=== PATIENT | male | born 1940 | race Caucasian/White ===

== ENCOUNTER → 2023-08-06 09:56 | Outpatient (REF) | payer MEDICARE, BC, SELFPAY ==
[2023-08-06 11:08] LABS: Blood Urea Nitrogen 23 mg/dl (9-20); Calcium 9.3 mg/dl (8.4-10.2); Carbon Dioxide 28 mmol/L (22-30); Chloride 100 mmol/L (98-107); Glucose 141 mg/dl (70-99); Potassium 4.9 mmol/L (3.5-5.1); Sodium 134 mmol/L (135-145); eGFR > 60.00
== END ==
LOC: REG 09:56
PROVIDERS: ATTENDING PHYSICIAN Specialist; FAMILY PHYSICIAN Family Medicine
DX: C67.0 Malignant neoplasm of trigone of bladder (principal)
CPT/HCPCS: 36415; 80048

== ENCOUNTER → 2023-08-12 13:07 | Outpatient (REF) | payer MEDICARE, BC, SELFPAY | LOC: HWRAD 13:07 | PROVIDERS: ATTENDING PHYSICIAN Specialist; FAMILY PHYSICIAN Family Medicine | DX: C61 Malignant neoplasm of prostate (principal); C67.0 Malignant neoplasm of trigone of bladder | CPT/HCPCS: 74178; Q9967 ==

== ENCOUNTER 2023-08-20 06:32 | Day surgery (SDC) | payer MEDICARE, BC, SELFPAY ==
[2023-08-15 11:08] VITALS: BMI 36.2
[2023-08-20] VITALS (13 sets, daily range): BP systolic 116–178; BP diastolic 54–94; BMI 36.2
[2023-08-20 10:24] LABS: Glucose - Point of Care 128 mg/dl (70-99)
[2023-08-20] MEDS: NORMOSOL-R 1000 IV (10:25)
[2023-08-20] MEDS: CYSVIEW KIT 100 MG INTRAVES (10:50)
[2023-08-20 12:23] LABS: Glucose - Point of Care 112 mg/dl (70-99)
[2023-08-20 14:55] LABS: Glucose - Point of Care 95 mg/dl (70-99)
[2023-08-20] MEDS: SYRINGE NON-PUMP 50 ML IRRIG ×2 (14:56)
[2023-08-20] MEDS: SYRINGE NON-PUMP 50 MG IRRIG ×2 (14:56)
== END 2023-08-20 17:47 | disposition home or self-care (01) ==
LOC: SDS 06:32
PROVIDERS: ATTENDING PHYSICIAN Specialist; FAMILY PHYSICIAN Family Medicine
DX: C67.9 Malignant neoplasm of bladder, unspecified (principal)
CPT/HCPCS: 52234; C9738; 88307; 82962; A9589; J9201

== ENCOUNTER → 2023-09-02 09:50 | Outpatient (REF) | payer MEDICARE, BC, SELFPAY | LOC: RAD 09:50 | PROVIDERS: ATTENDING PHYSICIAN Family Medicine | DX: I10 Essential (primary) hypertension (principal); R55 Syncope and collapse | CPT/HCPCS: 93880 ==

== ENCOUNTER → 2023-09-06 15:50 | Outpatient (REF) | payer MEDICARE, BC, SELFPAY | LOC: HWRCS 15:50 | PROVIDERS: ATTENDING PHYSICIAN Family Medicine | DX: R55 Syncope and collapse (principal); I10 Essential (primary) hypertension | CPT/HCPCS: 93306 ==

== ENCOUNTER → 2023-09-10 10:11 | Outpatient (REF) | payer MEDICARE, BC, SELFPAY ==
[2023-09-10 11:13] LABS: ALT (SGPT) 26 U/L (0-50); AST (SGOT) 27 U/L (17-59); Albumin 4.4 g/dl (3.5-5.0); Alkaline Phosphatase 51 U/L (38-126); Blood Urea Nitrogen 28 mg/dl (9-20); Carbon Dioxide 29 mmol/L (22-30); Chloride 97 mmol/L (98-107); Glucose 135 mg/dl (70-99); HDL Cholesterol 43 mg/dl; Potassium 4.2 mmol/L (3.5-5.1); Sodium 136 mmol/L (135-145); Total Bilirubin 0.7 mg/dl (0.2-1.3); Total Cholesterol 225 mg/dl (50-199); Total Protein 6.8 g/dl (6.3-8.2); eGFR > 60.00
[2023-09-10 11:21] LABS: Triglyceride 424 mg/dl (10-149)
[2023-09-10 11:43] LABS: LDL Cholesterol, Direct 90 mg/dl
[2023-09-10 13:20] LABS: Glycohemoglobin (HgbA1c) 6.6 % (4.0-5.6)
== END ==
LOC: REG 10:11
PROVIDERS: ATTENDING PHYSICIAN Family Medicine
DX: E11.40 Type 2 diabetes mellitus with diabetic neuropathy, unspecified (principal); E78.2 Mixed hyperlipidemia
CPT/HCPCS: 36415; 80053; 80061; 83036; 83721

== ENCOUNTER → 2023-10-24 16:55 | Outpatient (REF) | payer MEDICARE, BC, SELFPAY ==
[2023-10-24 17:54] LABS: % Basophils 0.3 % (0-2); % Eosinophils 0.1 % (0-6); % Immature Granulocytes 0.6 % (0-0.5); % Lymphocytes 5.6 % (20.5-51.1); % Monocytes 6.7 % (1.7-9.3); % Neutrophils 86.7 % (42.2-75.2); Absolute Immature Granulocytes 0.1 10^3/uL (0-0.05); Absolute Lymphocytes 0.6 10^3/uL (1.2-3.4); Absolute Monocytes 0.8 10^3/uL (0.1-0.6); Absolute Neutrophils 9.7 10^3/uL (1.4-6.5); Hemoglobin 11.3 g/dL (13.0-18.0); Mean Corp Hgb Conc. 34.2 g/dL (33.0-37.0); Mean Corpuscular Hgb 30.5 pg (27.0-31.0); Mean Corpuscular Volume 89.2 fL (80.0-94.0); Nucleated Red Blood Cells % 0 % (-); Platelet Count 174 10^3/uL (130-400); Red Cell Dist. Width 13.9 % (11.5-14.5); White Blood Cell Count 11.2 10^3/uL (4.8-10.8)
[2023-10-24 17:59] LABS: Erythrocyte Sed Rate 69 mm/hour (0-20)
[2023-10-24 18:11] LABS: ALT (SGPT) 26 U/L (0-50); AST (SGOT) 34 U/L (17-59); Albumin 4.5 g/dl (3.5-5.0); Alkaline Phosphatase 55 U/L (38-126); Blood Urea Nitrogen 34 mg/dl (9-20); Calcium 9.8 mg/dl (8.4-10.2); Carbon Dioxide 27 mmol/L (22-30); Chloride 93 mmol/L (98-107); Glucose 152 mg/dl (70-99); Potassium 3.8 mmol/L (3.5-5.1); Sodium 132 mmol/L (135-145); Total Bilirubin 1.4 mg/dl (0.2-1.3); Total Protein 7.2 g/dl (6.3-8.2); eGFR 59.63
[2023-10-24 18:40] LABS: PSA, Total - Diagnostic 0.19 ng/ml (0.0-4.0)
[2023-10-28 16:55] LABS: Lyme Antibody Screen, EIA Negative (Negative)
== END ==
LOC: RAD 16:55
PROVIDERS: ATTENDING PHYSICIAN Family Medicine
DX: M54.2 Cervicalgia (principal); R63.0 Anorexia; C61 Malignant neoplasm of prostate
CPT/HCPCS: 36415; 72052; 80053; 84153; 85025; 85652; 86140; 86618

== ENCOUNTER 2023-10-25 10:44 | Emergency (ER) | payer MEDICARE, BC, SELFPAY ==
[2023-10-25 10:52] VITALS: BP 152/82
[2023-10-25 11:32] VITALS: BP 152/80
--- NOTE | 2023-10-25 12:17 | ED.GENMED ---
History of Present Illness
General
Chief Complaint: Generalized Pain
Source: patient
Exam Limitations: none
Time Seen by Provider: 10/25/23 11:35
Nursing documentation reviewed up to this point in time: agreed with
Travel History
Have you had any contact with someone who has COVID-19?: No
Do you have any symptoms of coronavirus? Fever > 100 degrees, chills, cough, shortness of breath, sore throat, loss of taste or smell, muscle aches, or headache?: No
History of Present Illness
History of Present Illness:
83-year-old male with right shoulder pain neck pain. Due to symptoms ongoing for about 10 days. He was seen by Dr. Mcgraw yesterday, and had lab work done. Lab work showed elevated CRP, white blood cell count 11.2 and elevated ESR.
Past History
Past History
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
chronic anemia, obstructive sleep apnea)
ED Past Surgical History: Cholecystectomy, Orthopedic, Tonsilectomy and Other (Hernia repair)
Social History
Tobacco: Former smoker
Alcohol: Occasional
Personal:
Living: with family
Family History
Family History: CAD and Other (Family history of hypertriglyceridemia and coronary artery disease); Negative Diabetes, Hypertension, Asthma or Cancer
Review of Systems
Review of Systems
Allergies reviewed?: Yes
All Other Systems: Not applicable
Constitutional: Reports no symptoms
EENT: Reports no symptoms
Respiratory: Reports no symptoms; Denies trouble breathing
Cardiac: Reports no symptoms; Denies chest pain
ABD/GI: Reports no symptoms
: Reports no symptoms
Musculoskeletal: Reports muscle pain and neck pain
Skin: Reports no symptoms
Neurological: Reports no symptoms
Endocrine: Reports no symptoms
Hematologic/Lymphatic: Reports no symptoms
Psychiatric: Reports no symptoms
Phy Exam
Physical Exam
Physical Exam:
Physical Exam
General: no apparent distress, not acutely ill
Neck: supple. no meningeal signs. normal posterior pharynx, lipoma right lower posterior neck
Heart: s1/s2 regular rate and rhythm, no murmur. equal radial
pulses.
HEENT: Pupils equal round reactive to light, EOMI
Lungs: no acute respiratory distress. clear bilaterally
Abdomen: normal bowel sounds. not tender. no CVAT
Neuro: alert and oriented. no focal neurological deficits cranial nerves II through XII intact
Skin: no rash
Psychiatric: well kept. interactive and cooperative
Extremities: no edema. no calf tenderness. negative homans. good distal pulses, mild tender to palpation at right shoulder
Course
Orders/Labs/Results
Orders:
Orders
10/25/23 12:13
CT Chest/abd/pelvis Angio W/wo Urgent
Comment:
Reason For Exam: neck upper back pain abd pain
IV Insert/Care/Rem.- Treatment PRN
Vital Signs
Initial and Last Documented VS:
Initial Vital Signs
Temp Pulse Resp BP Pulse Ox
97.6 F 89 20 152/82 97
10/25/23 10:52 10/25/23 10:52 10/25/23 10:52 10/25/23 10:52 10/25/23 10:52
Last Documented Vital Signs
Temp Pulse Resp BP Pulse Ox
97.6 F 78 18 151/78 95
10/25/23 10:52 10/25/23 14:30 10/25/23 14:30 10/25/23 14:23 10/25/23 14:30
MDM/Problems Addressed
Differential Diagnosis Includes:
Aortic dissection, pneumonia
MDM/Problems Addressed:
83-year-old male with shoulder pain and myalgias. Unclear if viral versus arthritic cause.
Chronic conditions affecting care: HTN
Acute Exacerbation and/or Progression of Chronic Illness: HTN
*Radiology
Radiology exam reviewed: radiology read reviewed (CT angiography no acute findings, neck x-ray shows chronic degenerative changes)
*Pulse Oximetry
Patient hypoxic: no
*EKG
Interpreted by ED Provider?: NA
*Brim Presser Interpretation
Rate: Brim Presser- N/A
*Critical Care Note
Total Time (30-74mins, 75-104mins- exclusive of procedures): Not Applicable
Data Reviewed
Review of Other/Old Records Reveals: Labs
Source: records
Patient Management
Social determinants of health affecting care: Living situation
Escalation/DeEscalation of care consider admission/obs:
Admit not indicated
ED Attending Note
-
Portions of this chart may have been created with voice recognition software.� Occasional wrong word or��sound alike� substitutions may have occurred due to the inherent limitations of voice recognition software.
Discharge Plan
Departure
Patient Disposition: Home (Routine Discharge)
Date of Disposition: 10/25/23
Time of Disposition: 14:40
Patient with high blood pressure during this ER visit?: Yes
Condition: Good
Discharge Problem:
Myalgia, Prostate cancer metastatic to bone
Instructions: Muscle and Bone Pain (DC), BLOOD PRESSURE
Prescriptions:
New
tramadol 50 mg tablet
50 mg PO Q6H PRN (Reason: Pain) Qty: 14 0RF
No Action
gemfibrozil 600 MG tablet
600 mg PO BID@0730,1630
latanoprost (PF) 7.5 ML drops
1 drp BOTH EYES HS
metformin 500 MG tablet
500 mg PO BID
ascorbic acid (vitamin C) [Vitamin C] 500 MG tablet
500 mg PO BID
tamsulosin 0.4 MG capsule
0.4 mg PO BID
pantoprazole 40 MG tablet,delayed release (DR/EC)
40 mg PO DAILY
simvastatin 20 MG tablet
20 mg PO HS
cholecalciferol (vitamin D3) 5,000 UNIT tablet,disintegrating
5,000 unit PO BID
aspirin 81 MG tablet,delayed release (DR/EC)
81 mg PO BID
Coq10 300 MG Capsule
300 mg PO QPM
polyethylene glycol 3350 17 GRAMS powder in packet
17 grams PO PRN PRN (Reason: Constipation)
Metamucil Fiber Singles 1 PACKET powder in packet
1 packet PO PRN PRN (Reason: constipation)
losartan-hydrochlorothiazide 100-25 mg Tablet
1 tab PO DAILY
omega 4-wbu-vzp-fish oil [Fish Oil] 1,200 (144-216) mg Capsule
1 cap PO HS
dorzolamide-timolol 22.3-6.8 mg/mL Drops
1 drp OPHTHALMIC (EYE) BID
Referrals:
Shawn Ballard MD [Active] - Call in 1-3 days for appt
Berny Momin DO [Consulting Staff] - Call in 1-3 days for appt
Marvin Mcgraw MD [Family Provider] - Call in 1-3 days for appt
Interventions
Interventions:
*Risk Screen - Suicide Last Done: 10/25/23 11:34
*General Assessment Last Done: 10/25/23 11:34
*Neglect/Abuse Screening Last Done: 10/25/23 11:34
ED- Fall Risk Assessment Last Done: 10/25/23 11:34
*ED COVID-19 Vaccine History Last Done: 10/25/23 10:52
Discharge Date and Time
Print Language: SWEDISH
[2023-10-25 13:24] VITALS: BP 140/77
[2023-10-25 14:23] VITALS: BP 151/78
== END 2023-10-25 15:39 | disposition home or self-care (01) ==
LOC: EMR 10:44
PROVIDERS: EMERGENCY PHYSICIAN Emergency Medicine; FAMILY PHYSICIAN Family Medicine
DX: C61 Malignant neoplasm of prostate (principal); C79.51 Secondary malignant neoplasm of bone; M79.10 Myalgia, unspecified site; M54.2 Cervicalgia; M54.6 Pain in thoracic spine; R10.9 Unspecified abdominal pain; M25.511 Pain in right shoulder; R70.0 Elevated erythrocyte sedimentation rate; R79.82 Elevated C-reactive protein (CRP); K21.9 Gastro-esophageal reflux disease without esophagitis; I10 Essential (primary) hypertension; E78.00 Pure hypercholesterolemia, unspecified; E11.40 Type 2 diabetes mellitus with diabetic neuropathy, unspecified; G47.33 Obstructive sleep apnea (adult) (pediatric); D64.9 Anemia, unspecified; K22.70 Barrett's esophagus without dysplasia; H40.9 Unspecified glaucoma; K57.30 Diverticulosis of large intestine without perforation or abscess without bleeding; Z90.49 Acquired absence of other specified parts of digestive tract; Z85.51 Personal history of malignant neoplasm of bladder; Z85.828 Personal history of other malignant neoplasm of skin; Z87.442 Personal history of urinary calculi; Z87.891 Personal history of nicotine dependence; Z79.82 Long term (current) use of aspirin; Z79.84 Long term (current) use of oral hypoglycemic drugs; Z88.8 Allergy status to other drugs, medicaments and biological substances; Z91.048 Other nonmedicinal substance allergy status
CPT/HCPCS: 99285; 71275; 74174; Q9967

== ENCOUNTER 2023-10-28 15:38 | Inpatient (IN) | payer MEDICARE, BC, SELFPAY ==
[2023-10-28] VITALS (10 sets, daily range): BP systolic 79–166; BP diastolic 67–98; BMI 36.2
--- NOTE | 2023-10-28 12:14 | ED.GENMED ---
History of Present Illness
General
Chief Complaint: Weakness
Time Seen by Provider: 10/28/23 11:45
Travel History
Have you had any contact with someone who has COVID-19?: No
Do you have any symptoms of coronavirus? Fever > 100 degrees, chills, cough, shortness of breath, sore throat, loss of taste or smell, muscle aches, or headache?: No
History of Present Illness
History of Present Illness:
83-year-old male with history of metastatic prostate cancer, qwi-iwomnyj-ybsbawbkj diabetes, hypertension, and hyperlipidemia presents to the emergency department for evaluation of generalized weakness and increasing fatigue. Was seen here 3 days
ago and evaluated for right upper extremity pain, at that time had a CT angiogram of the chest abdomen pelvis to evaluate for aortic dissection that was negative, had cervical spine x-rays that were negative. He was noted to have a markedly
elevated CRP of 189 of unclear significance. He reports poor appetite and fluid intake over the weekend. Denies any falls to provoke the right shoulder pain. No known fevers or chills.
Past History
Past History
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
chronic anemia, obstructive sleep apnea)
ED Past Surgical History: Cholecystectomy, Orthopedic, Tonsilectomy and Other (Hernia repair)
Social History
Tobacco: Former smoker
Alcohol: Occasional
Personal:
Living: with family
Family History
Family History: CAD and Other (Family history of hypertriglyceridemia and coronary artery disease); Negative Diabetes, Hypertension, Asthma or Cancer
Review of Systems
Review of Systems
Allergies reviewed?: Yes
All Other Systems: ROS reviewed and negative except as documented in HPI and ROS
Phy Exam
Physical Exam
Physical Exam:
GEN: Well appearing, NAD, WDWN
Eyes: PERRLA, EOMs intact, no scleral icterus
HENT: NCAT, oral mucosa moist, no JVD, no cervical adenopathy.
Lungs: CTAB, no wheezes, rales, rhonchi, normal chest wall excursion
Cardiac: RRR, no M/R/G, no peripheral edema. Radial pulses 2+ bilat
Abdomen: S, NT, ND, NABS, no masses or hepatosplenomegaly
Neuro: Somnolent but arouses easily, oriented fully. Right upper extremity is notably weak however the patient reports this is due to severe right shoulder and trapezius area pain
MSK: No gross deformity or ecchymosis. No edema. No digital clubbing
Skin: No rashes, petechiae. Normal color, no pallor or jaundice.
Psych: Calm, cooperative, proper hygiene
Course
Orders/Labs/Results
Orders:
Orders
10/28/23 12:09
0.9% Sodium Chloride 1000 ml [Nss] 1,000 ml IV BOLUS
10/28/23 12:14
Complete Blood Count/With Diff Urgent
Comprehensive Metabolic Panel Urgent
Serum Osmolality Urgent
Comment: ADD ON
10/28/23 12:17
Electrocardiogram (*1) Urgent
Reason for Study: QTc Monitoring
EKG- Treatment ONCE
10/28/23 13:05
Osmolality, Random Urine Urgent
Date Specimen was Collected: 10/28/23
Time Specimen was Collected: 13:03
Comment: ADD
Urinalysis Reflex To Culture Urgent
Date Specimen was Collected: 10/28/23
Time Specimen was Collected: 13:03
Urine Microscopic Reflex Cult Urgent
Urine Sodium Urgent
Date Specimen was Collected: 10/28/23
Time Specimen was Collected: 13:03
Comment: ADD ON
10/28/23 13:40
Add On- LAB Urgent
Tests Added?: serum osmolality, urine sodium
10/28/23 14:07
Blood Culture Q30M
SHEY Source: Blood/Venous
Specimen Description:
10/28/23 14:11
IRAD CONSULT Urgent
Consulting Provider: Berny Schumacher
Was physician already notified: Yes
Reason for Consult/Procedure: R shoulder arthrocentesis
Acknowledgement that appropriate orders are entered: Yes
Body Fluid Cell Count Urgent
What is the Body Fluid: joint
Date Specimen was Collected: 10/28/23
Time Specimen was Collected: 16:10
Comment: with DIFF, right shoulder, only able to aspirate few drops of fluid
10/28/23 14:18
Blood Culture Q30M
SHEY Source: Blood/Venous
Specimen Description:
10/28/23 14:26
0.9% Sodium Chloride 1000 ml [Nss] 1,000 ml IV BOLUS
10/28/23 15:01
Add On- LAB Stat
Tests Added?: urine osmolality
10/28/23 15:06
Admit/Transfer Patient As Directed
Co-Sign Provider:
Level of Care: Inpatient admission
Assign to:: Medical/Surgical
Physician / Group: marybel kc
Diagnosis: shoulder pain
Reason for Hospitalization: shoulder pain
Expected length of stay greater than two midnights?: Yes
ELOS- Estimated Length of Stay in days: 3
I certify the patient meets the requirements for IP care: Yes
10/28/23 15:07
Code Status As Directed
Resuscitation Status: Full Code
10/28/23 16:10
Fluid Culture with Gram Stain Urgent
SHEY Source: Joint Fluid
Specimen Description:
Date Specimen was Collected: 10/28/23
Time Specimen was Collected: 16:10
Comment: Right shoulder
10/28/23 17:10
Acetaminophen [Tylenol] 650 mg PO Q4HPRN PRN
Bisacodyl [Dulcolax] 10 mg RECTAL [id number] PRN
Dextrose 50%-Water [Dextrose 50% Syringe] 12.5 grams IV [id number] PRN
Docusate W/Senna [Senokot-S] 1 tablet PO BIDPRN PRN
Glucagon [GlucaGen] 1 mg IM PRN PRN
HYDROmorphone [Dilaudid] 0.5 mg IV Q4HPRN PRN
Insulin Aspart High Resistance [Novolog Flexpen-High Resistance] See Protocol SC AC
Polyethylene Glycol Powder [Miralax] 17 grams PO DAILYPRN PRN
Polyethylene Glycol Powder [Miralax] 17 grams PO DAILYPRN PRN
10/28/23 17:10
ORTHOPEDIC CONSULT Routine
Consulting Provider: Dewayne Gallo
Was physician already notified: Yes
Activity As Directed
Activity Level: As Tolerated
Bedside Glucose Monitoring As Directed
Frequency: AC&HS
Additional Instructions:: Change to q6h if pt on TPN, tube feeding or not eating
Vital Signs As Directed
Frequency: Per unit guidelines
DX Deep Vein Thrombosis Video Routine
10/28/23 18:00
Amlodipine [Norvasc] 5 mg PO QPM
Atorvastatin [Lipitor] 10 mg PO QPM
Enoxaparin Sodium [Lovenox] 40 mg SC QPM
Metformin Extended Release [Glucophage Xr Extended Release] 500 mg PO BID AT 0800,1700
10/28/23 20:00
Aspirin Low Dose EC [Aspir Low (Enteric Coated)] 81 mg PO BID
Gemfibrozil [Lopid] 600 mg PO BID
Tamsulosin [Flomax] 0.4 mg PO BID
Timolol Maleate/Dorzolam HCl [Cosopt Eye Drops] See Dose Instructions BOTH EYES BID
10/28/23 22:00
Latanoprost [Xalatan Ophthalmic Solution] See Dose Instructions BOTH EYES HS
10/29/23 Breakfast
2200 calorie (18 carb) Diabetic
At Your Request: Full Participation
Basic Metabolic Panel IN AM
Complete Blood Count/No Diff IN AM
Glycohemoglobin (HgbA1c) IN AM
Occupational Therapy Consult [Ot Eval And Treat] IN AM
Physical Therapy Consult [Pt Eval And Treat] IN AM
Activity Level: As Tolerated
10/29/23 08:00
Losartan/Hydrochlorothiazide [Hyzaar 100-25 Tablet] 1 tab PO DAILY
Pantoprazole [Protonix] 40 mg PO DAILY
10/30/23 06:00
Basic Metabolic Panel IN AM
Complete Blood Count/No Diff IN AM
10/31/23 06:00
Basic Metabolic Panel IN AM
Complete Blood Count/No Diff IN AM
11/01/23 06:00
Basic Metabolic Panel IN AM
Complete Blood Count/No Diff IN AM
11/02/23 06:00
Basic Metabolic Panel IN AM
Complete Blood Count/No Diff IN AM
Abnormal Lab Results
10/28/23 10/28/23
12:14 13:05
WBC 15.9 H 10^3/uL
(4.8-10.8)
RBC 3.37 L 10^6/uL
(4.70-6.10)
Hgb 10.1 L g/dL
(13.0-18.0)
Hct 29.7 L %
(39.0-52.0)
MPV 11.2 H fL
(7.4-10.4)
Abs Immat Gran (auto) 0.5 H 10^3/uL
(0-0.05)
Absolute Neuts (auto) 13.5 H 10^3/uL
(1.4-6.5)
Absolute Lymphs (auto) 0.9 L 10^3/uL
(1.2-3.4)
Absolute Monos (auto) 0.9 H 10^3/uL
(0.1-0.6)
Immature Gran % 2.9 H %
(0-0.5)
Neutrophils % 85.2 H %
(42.2-75.2)
Lymphocytes % 5.9 L %
(20.5-51.1)
Sodium 128 L mmol/L
(135-145)
Chloride 87 L mmol/L
(98-107)
BUN 42 H mg/dl
(9-20)
Glucose 245 H mg/dl
(70-99)
Ur Occult Blood Reflex Trace A
(Negative)
Urine RBC 3-6 A /HPF
(0-2)
Urine Albumin (Reflex) 1+ A
(Neg - Trace)
10/28/23 12:14
10/28/23 12:14
Vital Signs
Initial and Last Documented VS:
Initial Vital Signs
Temp Pulse Resp BP Pulse Ox
98.1 F 80 18 154/83 95
10/28/23 11:39 10/28/23 11:39 10/28/23 11:39 10/28/23 11:39 10/28/23 11:39
Last Documented Vital Signs
Temp Pulse Resp BP Pulse Ox
99.0 F 84 22 166/98 94
10/28/23 17:15 10/28/23 17:15 10/28/23 17:15 10/28/23 17:15 10/28/23 17:15
MDM/Problems Addressed
MDM/Problems Addressed:
Overall is unclear what exactly is driving the patient's symptoms. Certainly weakness and fatigue may be on the basis of hyponatremia and dehydration however there is no clearly explainable cause of the patient's right shoulder pain. There is
significant right shoulder swelling on exam and pain with passive range of motion concerning for potential septic arthritis, particular in the setting of recent markedly elevated CRP. I did perform a limited bedside ultrasound and saw no clearly
discernible fluid in order to perform aspiration, interventional radiology was then consulted for aspiration. Ultimately occult infectious etiology is considered given the increase in leukocytosis over the past several days coupled with the
patient's worsening functional status. Will admit to the hospitalist service for further evaluation and management
*Critical Care Note
Total Time (30-74mins, 75-104mins- exclusive of procedures): Not Applicable
ED Attending Note
-
Portions of this chart may have been created with voice recognition software.� Occasional wrong word or��sound alike� substitutions may have occurred due to the inherent limitations of voice recognition software.
Discharge Plan
Departure
Patient Disposition: Admit
Date of Disposition: 10/28/23
Time of Disposition: 14:26
Admit to: Med/Surg
Presentation/result/management discussed w/ accepting MD/DO: Hospitalist
Discharge Problem:
Generalized weakness, Acute hyponatremia, Acute pain of right shoulder, r/o septic arthritis right shoulder
Interventions
Interventions:
*Risk Screen - Suicide Last Done: 10/28/23 11:42
*General Assessment Last Done: 10/28/23 11:42
*Neglect/Abuse Screening Last Done: 10/28/23 11:42
ED- Fall Risk Assessment Last Done: 10/28/23 12:08
*ED COVID-19 Vaccine History Last Done: 10/28/23 11:45
*Nursing Disposition Last Done: 10/28/23 17:03
ED- Cardiac Assessment Last Done: 10/28/23 12:04
ED- Neurological Assessment Last Done: 10/28/23 12:05
ED- Pulmonary Assessment Last Done: 10/28/23 12:06
Discharge Date and Time
Discharge Date/Time: 10/28/23 17:06
[2023-10-28] MEDS: NSS 1000 IV (12:18)
[2023-10-28 12:28] LABS: % Basophils 0.2 % (0-2); % Eosinophils 0.1 % (0-6); % Immature Granulocytes 2.9 % (0-0.5); % Lymphocytes 5.9 % (20.5-51.1); % Monocytes 5.7 % (1.7-9.3); % Neutrophils 85.2 % (42.2-75.2); Absolute Immature Granulocytes 0.5 10^3/uL (0-0.05); Absolute Lymphocytes 0.9 10^3/uL (1.2-3.4); Absolute Monocytes 0.9 10^3/uL (0.1-0.6); Absolute Neutrophils 13.5 10^3/uL (1.4-6.5); Hematocrit 29.7 % (39.0-52.0); Hemoglobin 10.1 g/dL (13.0-18.0); Mean Corpuscular Volume 88.1 fL (80.0-94.0); Mean Platelet Volume 11.2 fL (7.4-10.4); Nucleated Red Blood Cells % 0 % (-); Platelet Count 248 10^3/uL (130-400); Red Blood Cell Count 3.37 10^6/uL (4.70-6.10); Red Cell Dist. Width 13.7 % (11.5-14.5); White Blood Cell Count 15.9 10^3/uL (4.8-10.8)
[2023-10-28 12:53] LABS: ALT (SGPT) 44 U/L (0-50); AST (SGOT) 40 U/L (17-59); Albumin 3.8 g/dl (3.5-5.0); Alkaline Phosphatase 62 U/L (38-126); Blood Urea Nitrogen 42 mg/dl (9-20); Calcium 9.5 mg/dl (8.4-10.2); Carbon Dioxide 29 mmol/L (22-30); Chloride 87 mmol/L (98-107); Estimated Creatinine Clearance 67 ml/min; Glucose 245 mg/dl (70-99); Potassium 3.8 mmol/L (3.5-5.1); Sodium 128 mmol/L (135-145); Total Bilirubin 1.1 mg/dl (0.2-1.3); Total Protein 6.5 g/dl (6.3-8.2); eGFR > 60.00
[2023-10-28 13:10] LABS: Urine Albumin 1+ (Neg - Trace); Urine Bilirubin Negative (Negative); Urine Character Clear (Clear); Urine Color Yellow; Urine Glucose Negative (Negative); Urine Ketone Negative (Negative); Urine Leukocyte Negative (Negative); Urine Nitrite Negative (Negative); Urine Occult Blood Trace (Negative); Urine Urobilinogen Negative (Neg - 1+)
[2023-10-28 13:27] LABS: Urine White Cell 0-2 /HPF (0-5)
--- NOTE | 2023-10-28 14:32 | HPS.HSE ---
Family Physician
-
Family Physician: Marvin Mcgraw
Chief Complaint
-
right shoulder pain
History of Present Illness
83-year-old male with history of metastatic prostate cancer, qiu-thbnsqw-yjotqdzqg diabetes, hypertension, and hyperlipidemia presented to us with right neck and shoulder pain since last Saturday. patient was evaluated by ER on Saturday and was sent
home on Tramadol and prednisone. patient stated worsening pain, not able to move.denied fever, chills, chest pain, sob. denied RIVERA, dizzy or syncopal episode. denied abdominal pain, n,v, d. denied dysuria or hematuria.
noted elevated CRP and wbc. admitting for further management.
Medical History
Past Medical History
Past Medical History: Reports Other
Additional Past Medical History:
GERD
prostate ca
HTn
CLEMENCIA
type 2 Dm
HLD
bladder ca
Caldera's esophagus
BPH
PAD
Past Surgical History: Reports Other
Additional Past Surgical History:
vitrectomy
bilateral hernia repairs
foot surgery
retinal surgery
cholecystectomy
tonsillectomy
Mohs surery
Social History
Tobacco: Non-smoker
Alcohol: None
Drug: None
Personal:
Living: With Family
Family History
Family History: Not pertinent
Allergies / Home Medications
Allergies reflects when Allergies were last updated in [employer]
Home Medications with original date entered in [employer].
Allergy/Medication List:
Allergies
Allergy/AdvReac Type Severity Reaction Status Date / Time
medication that stimulates Allergy patient Uncoded 10/28/23 11:39
bone iván doesn't
know name
seasonal Allergy sneezing, Uncoded 10/28/23 11:39
runny eyes
Home Medications
ascorbic acid (vitamin C) 500 mg tablet (Vitamin C) 500 mg PO BID Supplement 04/17/19
gemfibrozil 600 mg tablet 600 mg PO BID High Cholesterol 04/17/19
pantoprazole 40 mg tablet,delayed release 40 mg PO DAILY Gastrointestinal Issue 04/17/19
simvastatin 20 mg tablet 20 mg PO QPM High Cholesterol 04/17/19
tamsulosin 0.4 mg capsule 0.4 mg PO BID Urinary Issue 04/17/19
aspirin 81 mg tablet,delayed release 81 mg PO BID Blood Clot Prevention/Tx 02/17/20
polyethylene glycol 3350 17 gram oral powder packet 17 grams PO DAILYPRN PRN Constipation 02/18/20
losartan 100 mg-hydrochlorothiazide 25 mg tablet 1 tab PO DAILY Blood Pressure 06/05/22
omega 7-qde-rob-fish oil 1,200 mg (144 mg-216 mg) capsule (Fish Oil) 1 cap PO HS Supplement 06/05/22
acetaminophen 325 mg tablet (Tylenol) 325 - 650 mg PO QIDPRN PRN mild pain 10/28/23
amlodipine 5 mg tablet 5 mg PO QPM Blood Pressure 10/28/23
cholecalciferol (vitamin D3) 125 mcg (5,000 unit) tablet 125 mcg PO BID Supplement 10/28/23
coenzyme Q10 100 mg capsule (CoQ-10) 100 mg PO QPM Supplement 10/28/23
dorzolamide 22.3 mg-timolol 6.8 mg/mL eye drops 1 drp BOTH EYES BID Eye Condition 10/28/23
latanoprost 0.005 % eye drops 1 drp BOTH EYES HS Eye Condition 10/28/23
metformin 500 mg tablet,extended release 24 hr 500 mg PO BID Diabetes 10/28/23
prednisone 20 mg tablet 20 mg PO DAILY inflammation 10/28/23
tramadol 50 mg tablet 50 mg PO Q6H PRN severe pain 10/28/23
Review of Systems
-
Constitutional: Reports No Symptoms
EENT: Reports No Symptoms
Respiratory: Reports No Symptoms
Cardiac: Reports No Symptoms
Abdomen/GI: Reports No Symptoms
: Reports No Symptoms
Musculoskeletal: Reports Other (right shoulder,neck pain)
Skin: Reports No Symptoms
Neurological: Reports No Symptoms
Endocrine: Reports No Symptoms
Hematologic/Lymphatic: Reports No Symptoms
Psych: Reports No Symptoms
Physical Exam
Vital Signs
Vital Signs
Temp Pulse Resp BP Pulse Ox
98.1 F 86 20 139/82 93
10/28/23 11:39 10/28/23 14:15 10/28/23 14:15 10/28/23 14:00 10/28/23 14:15
Physical Exam
General: Well Developed, Well Nourished and No Apparent Distress
HEENT: NormoCephalic, Moist mucous membranes and Atraumatic
Respiratory: Clear
Cardiac: S1/S2 and Regular Rhythm; No Murmur or Rub
GI: Soft, Non Tender, Non Distended and Normal Bowel Sounds; No Organomegaly
Rectal: Deferred by Provider
Musculoskeletal: No Clubbing, No Cyanosis and No Edema
Skin: No Rash
Neuro: AO x 3 and Nonfocal/grossly intact
Psych: Calm
Laboratory Results
-
10/28/23 12:14
10/28/23 12:14
Laboratory Results
Total Bilirubin 1.1 mg/dl (0.2-1.3) 10/28/23 12:14
AST 40 U/L (17-59) 10/28/23 12:14
ALT 44 U/L (0-50) 10/28/23 12:14
Alkaline Phosphatase 62 U/L (38-126) 10/28/23 12:14
Data Reviewed
-
CT Scan: Report Reviewed by me
Lab Data: Labs Reviewed by me
Impression/Plan
-
#right shoulder pain unclear cause septic arthritis vs frozen shoulder
-wbc 15.9 (on steroids)
-CRP 189.30,ESR 69
-ortho and IR consulted
-chest abdomen pelvis CTA is No evidence of thoracic aortic aneurysm/dissection and no evidence of abdominal aortic aneurysm/dissection.Prior cholecystectomy. No biliary tract dilatation.Sclerotic densities again seen in the left seventh rib, right
iliac bone and right sacrum correlating with known bony metastasis.Hepatomegaly.Urinary bladder significantly obscured, as detailed above.Colonic diverticulosis.
-cervical spine X ray No acute fracture or malalignment. Multilevel overall moderate degenerative changes as above.
-Dilaudid prn for pain
-hold prednisone
-pt/ot consult
#anemia of chronic disease
-hgb 10.1
-no active bleeding
-ctm
#acute hyponatremia likely dehydration
-na 128, corrected sodium 131
-received normal saline x2l in ER
-continue to monitor BMP
# Essential hypertension
-Blood pressure stable in the ER
-Norvasc continued
-Losartan/HCTZ continued
# Hyperlipidemia
-Gemfibrozil continued
-Simvastatin continued
# Type 2 diabetes with hyperglycemia
-Sliding scale
-Carb controlled diet
-Continue to monitor
-Continue PPI
# GERD
-PPI continued
# BPH
-Flomax continued
# DVT prophylaxis
-Lovenox subcu
# CODE STATUS
-Full code
--- NOTE | 2023-10-28 14:44 | W.PN.UPDATE ---
Update Note
Progress Note Update
TI saw and examined the patient.
The CLASSIFICATION COUNSELOR or PA's note was reviewed and I agree with the note.
Comment: his serves as an addendum to the H&P dictated by Oliver Danielson.
Patient 83 years old male with history of metastatic prostate cancer, diabetes mellitus, hypertension, hyperlipidemia presented with generalized weakness and right shoulder pain. Patient denies any trauma to the right shoulder. Denies any fevers
or chills. He has some decreased oral intake. He has a white count of 15.9, sodium of 128, glucose of 245. He was referred to hospitalist for further evaluation.
Physical exam:
General: Acutely ill
HEENT: Normocephalic, Atraumatic and Moist Mucous Membranes
Respiratory: Clear to Auscultation; Negative Wheezes, Rales or Rhonchi
Cardiac: Regular Rhythm and S1/S2
GI: Soft, Nontender and Nondistended
Musculoskeletal: Right shoulder pain and decreased range of motion. No Clubbing, No Cyanosis and No Edema
Neuro: Awake, Alert and Oriented
Psych: Calm
A/P
Rule out septic arthritis right shoulder/hyponatremia/ambulatory dysfunction and generalized weakness--> hold off on antibiotics, IR consult for aspiration of right shoulder to rule out septic arthritis, Ortho eval, aggressive blood sugar control
and monitor sodium which will be affected by the same. Obtain basic hyponatremia workup. PT OT eval. Will give further commendations based on his clinical course.
[2023-10-28 15:49] LABS: Urine Sodium 82 mmol/L (30-90)
[2023-10-28 15:50] LABS: Osmolality Serum 285 mOsm/kg (275-300)
[2023-10-28 16:25] LABS: Osmolality Urine 531 mOsm/kg (300-900)
--- NOTE | 2023-10-28 17:30 | PTCARENOTE ---
Patient admitted in to room 416-1. AAOx2, drowsy and forgetful. Patient oriented to unit and call gould system. Patient agreeable with using call gould for assistance. Condom cath placed. Will closely monitor.
[2023-10-28 18:04] LABS: Glucose - Point of Care 217 mg/dl (70-99)
[2023-10-28] MEDS: NORVASC 5 MG PO (18:14)
[2023-10-28] MEDS: LOVENOX 40 MG SC (18:14)
[2023-10-28] MEDS: GLUCOPHAGE XR EXTENDED RELEASE 500 MG PO (18:14)
[2023-10-28] MEDS: LIPITOR 10 MG PO (18:14)
[2023-10-28] MEDS: NOVOLOG FLEXPEN-HIGH RESISTANCE 4 UNITS SC (18:22)
[2023-10-28] MEDS: FLOMAX 0.400000000000000022 MG PO (20:20)
[2023-10-28] MEDS: COSOPT EYE DROPS 1 DROP BOTH EYES (20:20)
[2023-10-28] MEDS: ASPIR LOW (ENTERIC COATED) 81 MG PO (20:20)
[2023-10-28] MEDS: LOPID 600 MG PO (20:20)
[2023-10-28 21:26] LABS: Glucose - Point of Care 236 mg/dl (70-99)
[2023-10-28] MEDS: XALATAN OPHTHALMIC SOLUTION 1 DROP BOTH EYES (21:37)
[2023-10-29 07:00] VITALS: BP 151/78
[2023-10-29 07:22] LABS: Hematocrit 32.6 % (39.0-52.0); Hemoglobin 11.3 g/dL (13.0-18.0); Mean Corp Hgb Conc. 34.7 g/dL (33.0-37.0); Mean Corpuscular Hgb 30.1 pg (27.0-31.0); Mean Corpuscular Volume 86.9 fL (80.0-94.0); Mean Platelet Volume 11.1 fL (7.4-10.4); Platelet Count 285 10^3/uL (130-400); Red Blood Cell Count 3.75 10^6/uL (4.70-6.10); Red Cell Dist. Width 13.5 % (11.5-14.5); White Blood Cell Count 16.2 10^3/uL (4.8-10.8)
--- NOTE | 2023-10-29 07:38 | W.PN.HOSP.TC ---
Today's Communication/Plan
-
Start IV antibiotics. Repeat blood cultures. Echocardiogram. ID consult. Insulin. IVF.
Assessment / Plan
Assessment / Plan
Physical exam:
General: Acutely ill.
HEENT: Normocephalic, Atraumatic and Moist Mucous Membranes
Respiratory: Clear to Auscultation; Negative Wheezes, Rales or Rhonchi
Cardiac: Regular Rhythm and S1/S2
GI: Soft, Nontender and Nondistended
Musculoskeletal: Right shoulder pain and decreased range of motion. No erythema or warmth. No Clubbing, No Cyanosis and No Edema
Neuro: Awake, Alert and Oriented
Psych: Calm
A/P:
Bacteremia:
Blood cultures with Staph aureus, likely MSSA
Start IV cefazolin
Repeat blood cultures
Plan for transthoracic echocardiogram
Follow-up joint aspiration cultures
ID consult
Right shoulder pain status post IR aspiration on 10/27, rule out septic arthritis:
Follow-up cultures
X-ray shoulder ordered
Orthopedic consulted
Hyponatremia:
Etiology multifactorial -HCTZ, Hyperglycemia, Dehydration, Hypokalemia and SIADH related
Gentle hydration with IV fluid normal saline
Discontinue HCTZ
Start oral fluid restriction
Tighter blood sugar control
Urine sodium 82, urine osmolality 531, serum osmolarity 285. Check tsh and cortisol in am.
With all measures above, I expect the sodium to stabilize and/or improve.
Leukocytosis:
Infectious and steroids related both
Continue to trend
Diabetes mellitus type 2:
Diabetic diet
Will continue to check blood sugars before meals and at bedtime
Will continue insulin sliding scale
Will continue oral hypoglycemics, metformin
Will add insulin 8 units before each meal for better blood sugar control
Will monitor blood sugar and adjust medications accordingly
Update hemoglobin A1c in a.m. is 7.5
Hypokalemia:
Replete and trend
Primary hypertension:
Continue home antihypertensives, losartan, Norvasc. Hold HCTZ due to hyponatremia.
Monitor blood pressure and adjust medications accordingly.
Hyperlipidemia:
Continue home statins, atorvastatin 10 mg p.o. nightly
Continue gemfibrozil 600 mg twice a day
BPH:
Continue Flomax 0.4 mg twice a day
Anemia:
Hemoglobin stable at 11.3
Continue to monitor trend
History metastatic prostate cancer/bladder cancer:
Continue outpatient follow-up.
DVT prophylaxis:
Lovenox SQ daily
CODE STATUS:
Full code
Total time spent on today's encounter was 52 minutes which included time spent in counseling the patient/family regarding diagnosis and treatment plan as listed above, goals of care, and symptom management. Case was discussed with nursing staff,
specialists, and care coordinators/case management. All labs and imaging personally reviewed by me. Remainder the time spent in detailed review of previous records, lab data, imaging, and other medical provider documentation.
Anticipated Discharge: > 48 hours
Subjective/Interval History
-
Date of Service: October 29, 2023
Patient with generalized weakness and still having right shoulder pain. Afebrile today.
Objective Data
-
Labs:
Laboratory Results
10/29/23
06:35
WBC 16.2 H
Hgb 11.3 L
Hct 32.6 L
Plt Count 285
Sodium Pending
Potassium Pending
Chloride Pending
Carbon Dioxide Pending
BUN Pending
Creatinine Pending
Glucose Pending
Calcium Pending
Vital Signs:
Vital Signs
Temp Pulse Resp BP Pulse Ox
99.6 F 98 20 133/69 91
10/28/23 23:05 10/28/23 23:05 10/28/23 23:05 10/28/23 23:05 10/28/23 23:05
I&O
10/28/23 10/29/23 10/30/23
06:59 06:59 06:59
Intake Total 480 / 480
Output Total 900 / 900
Balance -420 / -420
[2023-10-29 07:58] LABS: Glucose - Point of Care 243 mg/dl (70-99)
[2023-10-29 08:17] LABS: Blood Urea Nitrogen 31 mg/dl (9-20); Carbon Dioxide 26 mmol/L (22-30); Chloride 88 mmol/L (98-107); Estimated Creatinine Clearance 92 ml/min; Glucose 202 mg/dl (70-99); Potassium 3.2 mmol/L (3.5-5.1); Sodium 127 mmol/L (135-145); eGFR > 60.00
[2023-10-29] MEDS: NOVOLOG FLEXPEN-HIGH RESISTANCE 4 UNITS SC (08:25)
[2023-10-29] MEDS: COSOPT EYE DROPS 1 DROP BOTH EYES ×2 (08:28→20:20)
[2023-10-29] MEDS: HYZAAR 100-25 TABLET 1 TAB PO (08:28)
[2023-10-29] MEDS: PROTONIX 40 MG PO (08:28)
[2023-10-29] MEDS: ASPIR LOW (ENTERIC COATED) 81 MG PO ×2 (08:28→20:25)
[2023-10-29] MEDS: FLOMAX 0.400000000000000022 MG PO ×2 (08:28→20:25)
[2023-10-29] MEDS: LOPID 600 MG PO ×2 (08:28→20:25)
[2023-10-29] MEDS: GLUCOPHAGE XR EXTENDED RELEASE 500 MG PO ×2 (08:28→15:54)
--- NOTE | 2023-10-29 08:58 | CON.ORTHO ---
Consultation
-
Date/Time Consultation Requested: 10/28/23
Date/Time Consultation Performed: 10/29/23 @750am
Requesting Provider: Erum Boyd
Performing Provider: Jackie Nair PAC for Dewayne Gallo
Reason for Consultation: right shoulder pain
Consultation - Orthopedics
History
HPI: 83yo male admitted to [facility] with right neck and shoulder pain since last Saturday. He was evaluated by ER on Saturday and was sent home on Tramadol and prednisone. Patient reports he had worensing pain and decreased range of motion.
He had elevated CRP and WBC and was admitted for further management. This morning, he is resting comfortably in bed and reports significant improvement in his symptoms. He states that his pain is almost resolved and his range of motion is at his
baseline. He underwent right shoulder aspiration in IR yesterday. He denies any type of injury to the right shoulder. He is right hand dominant.
PAST MEDICAL HISTORY: Metastatic prostate cancer, type 2 diabetes, hypertension, hyperlipidemia, GERD, CLEMENCIA, bladder cancer, Caldera's esophagus, PAD
PAST SURGICAL HISTORY: vitrectomy, bilateral hernia repair, foot surgery, retinal surgery, cholecystectomy, tonsillectomy, Mohs procedure
SOCIAL HISTORY: denies tobacco, alcohol
FAMILY HISTORY: Non contributory
REVIEW OF SYSTEMS: 12 point review of systems obtained and negative except those mentioned in the HPI
Allergies / Home Medications
Allergy/AdvReac Type Severity Reaction Status Date / Time
medication that stimulates Allergy patient Uncoded 10/28/23 11:39
bone iván doesn't
know name
seasonal Allergy sneezing, Uncoded 10/28/23 11:39
runny eyes
�Medication �Instructions �Recorded
ascorbic acid (vitamin C) 500 mg 500 mg PO BID Supplement 04/17/19
tablet (Vitamin C)
gemfibrozil 600 mg tablet 600 mg PO BID High Cholesterol 04/17/19
pantoprazole 40 mg tablet,delayed 40 mg PO DAILY Gastrointestinal 04/17/19
release Issue
simvastatin 20 mg tablet 20 mg PO QPM High Cholesterol 04/17/19
tamsulosin 0.4 mg capsule 0.4 mg PO BID Urinary Issue 04/17/19
aspirin 81 mg tablet,delayed 81 mg PO BID Blood Clot 02/17/20
release Prevention/Tx
polyethylene glycol 3350 17 gram 17 grams PO DAILYPRN PRN 02/18/20
oral powder packet Constipation
losartan 100 1 tab PO DAILY Blood Pressure 06/05/22
mg-hydrochlorothiazide 25 mg tablet
omega 3-qbu-cqq-fish oil 1,200 mg 1 cap PO HS Supplement 06/05/22
(144 mg-216 mg) capsule (Fish Oil)
acetaminophen 325 mg tablet 325 - 650 mg PO QIDPRN PRN mild 10/28/23
(Tylenol) pain
amlodipine 5 mg tablet 5 mg PO QPM Blood Pressure 10/28/23
cholecalciferol (vitamin D3) 125 125 mcg PO BID Supplement 10/28/23
mcg (5,000 unit) tablet
coenzyme Q10 100 mg capsule 100 mg PO QPM Supplement 10/28/23
(CoQ-10)
dorzolamide 22.3 mg-timolol 6.8 1 drp BOTH EYES BID Eye Condition 10/28/23
mg/mL eye drops
latanoprost 0.005 % eye drops 1 drp BOTH EYES HS Eye Condition 10/28/23
metformin 500 mg tablet,extended 500 mg PO BID Diabetes 10/28/23
release 24 hr
prednisone 20 mg tablet 20 mg PO DAILY inflammation 10/28/23
tramadol 50 mg tablet 50 mg PO Q6H PRN severe pain 10/28/23
Vital Signs / Lab Results
Temp Pulse Resp BP Pulse Ox
99.6 F 98 20 133/69 91
10/28/23 23:05 10/28/23 23:05 10/28/23 23:05 10/28/23 23:05 10/28/23 23:05
10/29/23 06:35
10/29/23 06:35
PHYSICAL EXAM:
General: well developed well nourished male in no acute distress
HEENT: NCAT, sclera anicteric, normal hearing
Heart: No JVD
Lungs: Normal work of breathing on room air
MSK: Focused exam of right shoulder with skin intact. Band aid to area from IR procedure. No tenderness to palpation. ROM: forward flexion 120, internal to hip, external 45, patient reports this is baseline. NVI distally
Assessment / Plan
ASSESSMENT: 83yo male with right shoulder pain
PLAN:
-Patient underwent IR aspiration yesterday. Obtained less than 1 mL of blood-tinged gelatinous synovial fluid, not grossly purulent. Culture pending
-Ordered xray right shoulder. Will follow up
-Given improvement in symptoms, low suspicion of septic arthritis
-Continue with current pain management as needed
[2023-10-29 09:22] LABS: Glycohemoglobin (HgbA1c) 7.5 % (4.0-5.6)
[2023-10-29 09:29] VITALS: BP 110/69; BP 131/81; PULSE 98; O2SAT 93
[2023-10-29 09:35] VITALS: BP 118/61; BP 131/81; O2SAT 93
[2023-10-29] MEDS: NSS 1000 IV (10:05)
[2023-10-29] MEDS: KCL 40 MEQ PO ×2 (10:05→13:43)
[2023-10-29 11:58] LABS: Glucose - Point of Care 253 mg/dl (70-99)
[2023-10-29] MEDS: NOVOLOG FLEXPEN-HIGH RESISTANCE 7 UNITS SC (12:06)
[2023-10-29] MEDS: NOVOLOG FLEXPEN 8 UNITS SC ×2 (12:06→16:57)
[2023-10-29] MEDS: ANCEF 10 IV ×2 (12:07→20:25)
--- NOTE | 2023-10-29 13:59 | CM ---
Patient seen bedside, patient requesting call to . Initial assessment completed by , Kelsy. Patients reports patient resides in multi level home, two steps to enter. Patient uses a cane for ambulation, CPAP at night through [employer].
Per , patient has not had VN or SNF if past. PCP Marvin Mcgraw, pharmacy [facility] in [place]. confirms prescription coverage. CM discussed PT/OT recommendation of SNF, agreeable. CM will send referrals to local SNFs. CM will
continue to follow for discharge planning needs.
Plan; SNF pending accepting facility.
[2023-10-29 15:00] VITALS: BP 152/89
--- NOTE | 2023-10-29 15:15 | CON.ID ---
Consultation
-
Date/Time Consultation Requested: 10/29/2023 1102
Date/Time Consultation Performed: 10/29/2023 1500
Requesting Provider: Dr. Martinez
Performing Provider: Dr. Moseley
Reason for Consultation: Bacteremia
Chief Complaint / Past History
History of Present Illness
Logan Villanueva is an 83-year-old man being evaluated at the request of Dr. Carroll in regards to Staph aureus bacteremia. History is obtained from chart review, along with patient interview, although patient was found to be quite confused when
interviewed.
The patient initially presented to [facility] ER on 10/24 with complaints of right shoulder pain, along with neck pain, which reportedly have been going on for the prior 10 days. He recently had been in to see his PCP and routine labs
revealed an elevated CRP, along with an elevated white count. Workup in the ER was unrevealing and the patient was discharged to home.
He presents back on 10/27 secondary to ongoing generalized weakness. His white count was now found to be 15.9, and blood cultures were obtained in the ER, which are now positive for Staph aureus. Infectious Diseases is asked to comment upon further
antimicrobial management and workup.
At the present time the patient reports low back discomfort, although is not sure about weakness. He is currently confused and believes he is on a sailboat.
Past History
Additional Past Medical History:
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
GERD
Hx Caldera's esophagitis
HTN
Dyslipidemia
DM
Nephrolithiasis
Additional Past Surgical History:
Mohs surgery
Tonsillectomy
Cholecystectomy
Retinal surgery
Foot surgery
Bilateral hernia repair
Allergy History:
medication that stimulates bone iván Allergy (Uncoded 10/28/23 11:39)
patient doesn't know name
seasonal Allergy (Uncoded 10/28/23 11:39)
sneezing, runny eyes
Medications Reviewed: Yes
Current Antibiotics:
Cefazolin
Social History
Tobacco: Former Smoker
Alcohol: None
Drug: None
Personal:
Living: With Family
Employment: Retired
Review of Systems
Vital Signs
Temp Pulse Resp BP Pulse Ox
97.2 F 95 20 151/78 92
10/29/23 07:00 10/29/23 07:00 10/29/23 07:00 10/29/23 07:00 10/29/23 07:00
Physical Exam
Physical Exam
Constitutional: No Acute Distress, Comfortable, Chronically Ill and Non-toxic
Eyes: Pupils Equal, Pupils Round, No Conjunctival Hemorrhage and Sclera Anicteric
Oral: No Thrush and No Ulcers
Cardiovascular: S1/S2; Negative S3/S4 or Murmur
Pulmonary: Coarse and Non Labored; Negative Wheezes or Rhonchi
Gastrointestinal: Soft, Non Tender and Non Distended
Extremities: Negative Edema, Cyanosis, Erythema, Splinter Hemorrhage, Venous Insufficiency or Janeway Lesions
Musculoskeletal: Spinal Tenderness (Low thoracic / upper lumbar region); Negative Joint Swelling
Skin: Warm and Dry; Negative Rash or Jaundice
Neurological: Awake and Alert
Psychological: Calm and Confused
.
Lab / Diagnostic Study Results
10/29/23 06:35
10/29/23 06:35
Abs Immat Gran (auto) 0.5 10^3/uL (0-0.05) H 10/28/23 12:14
Absolute Neuts (auto) 13.5 10^3/uL (1.4-6.5) H 10/28/23 12:14
Absolute Lymphs (auto) 0.9 10^3/uL (1.2-3.4) L 10/28/23 12:14
Absolute Monos (auto) 0.9 10^3/uL (0.1-0.6) H 10/28/23 12:14
Absolute Basos (auto) 0.0 10^3/uL (0-0.2) 10/28/23 12:14
Immature Gran % 2.9 % (0-0.5) H 10/28/23 12:14
Neutrophils % 85.2 % (42.2-75.2) H 10/28/23 12:14
Lymphocytes % 5.9 % (20.5-51.1) L 10/28/23 12:14
Monocytes % 5.7 % (1.7-9.3) 10/28/23 12:14
Eosinophils % 0.1 % (0-6) 10/28/23 12:14
Basophils % 0.2 % (0-2) 10/28/23 12:14
Microbiology Results
Micro:
10/29/23 14:54 Blood Culture - Pending
Blood/Venous
10/29/23 14:15 Blood Culture - Pending
Blood/Venous
10/28/23 16:10 Body Fluid Culture - Preliminary
Joint Fluid No Growth After 18-24 Hours
Gram Stain - Final
10/28/23 14:07 Blood Culture - Preliminary
Blood/Venous Staphylococcus aureus
Gram Stain - Final
10/28/23 14:18 Blood Culture - Preliminary
Blood/Venous Positive culture in progress
Gram Stain - Final
Imaging:
10/25/2023 CT chest/abdomen/pelvis: No evidence of thoracic aortic aneurysm/dissection and no evidence of abdominal aortic aneurysm/dissection. Prior cholecystectomy. No biliary tract dilatation. Sclerotic densities again seen in the left seventh
rib, right iliac bone and right sacrum correlating with known bony metastasis. Hepatomegaly. Urinary bladder significantly obscured. Colonic diverticulosis. Please see full dictation for additional detail.
Assessment / Plan
Staph aureus bacteremia
Back discomfort/shoulder discomfort
Leukocytosis
Encephalopathy
Hyponatremia
Elevated ESR
Elevated CRP
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
GERD
Hx Caldera's esophagitis
HTN
Dyslipidemia
DM
Nephrolithiasis
Recommendations:
Continue with cefazolin.
Will add vancomycin empirically while final susceptibility data pending. Further antibiotic selection and de-escalation as data is returned.
Repeat blood cultures have been ordered; will follow.
Given shoulder pain, and low back pain, will order MRI to assess for epidural collection or discitis.
Monitor white count and temperature curve.
[2023-10-29] MEDS: LIPITOR 10 MG PO (15:54)
[2023-10-29] MEDS: NORVASC 5 MG PO (15:54)
[2023-10-29] MEDS: LOVENOX 40 MG SC (16:00)
--- NOTE | 2023-10-29 16:10 | PHA.VAN.IN ---
Assessment
- Assessment
Renal Function: Appears similar to baseline (SCR & BUN elevated on admission but both are trending down)
Concomitant Antimicrobials: cefazolin
AUC Dosing Plan
- Dosing Variables
Dosing Weight (kg): 121
Dosing CrCl (ml/min): 92
Vd coefficient (L/kg): 0.7
- Empiric Dosing
Initial / Loading Dose: 2000mg - administration pending
Maintenance Regimen: Vanc 1250mg Q12H starting 10/29 06
Estimated AUC (mcg*h/mL): 452
Estimated Peak (mcg*h/mL): 27.7
Estimated Trough (mcg/ml): 11.9
Estimated Half Life (H): 8.6
- Monitoring
No levels ordered at this time: patient may be slow to accumulate
Pharmacokinetics Vancomycin I
- -
Patient Age: 83
Patient Sex: Male
Vancomycin Day #: 1
Indication: Bacteremia
Requesting Provider: Dr. Moseley
Pertinent Antimicrobial Allergies:
no pertinent antibiotic allergies
Height / Weight:
Height 6 ft
Actual Weight 120.9 kg
Pertinent Past Medical History: BMI ~36
- Vital Signs / Lab Results
Temp Pulse Resp BP Pulse Ox
97.2 F 95 20 151/78 92
10/29/23 07:00 10/29/23 07:00 10/29/23 07:00 10/29/23 07:00 10/29/23 07:00
Lab Results - Hematology
10/28/23 10/29/23
12:14 06:35
WBC 15.9 H 16.2 H
Lab Results - Chemistry
10/28/23 10/29/23
12:14 06:35
BUN 42 H 31 H
Creatinine 1.1 0.8
Estimated Creat Clear 67 92
Albumin 3.8
Lab Results - Urine
10/28/23
13:05
Urine Nitrite (Reflex) Negative
Leukocyte Esterase Rfl Negative
Urine WBC (Reflex) 0-2
Microbiology Results
10/28/23 16:10 Body Fluid Culture - Preliminary
Joint Fluid No Growth After 18-24 Hours
Gram Stain - Final
10/28/23 14:07 Blood Culture - Preliminary
Blood/Venous Staphylococcus aureus
Gram Stain - Final
10/28/23 14:18 Blood Culture - Preliminary
Blood/Venous Positive culture in progress
Gram Stain - Final
[2023-10-29] MEDS: VANCOCIN 540 MG IV (16:32)
[2023-10-29 16:33] LABS: Glucose - Point of Care 197 mg/dl (70-99)
[2023-10-29] MEDS: NOVOLOG FLEXPEN-HIGH RESISTANCE 2 UNITS SC (16:58)
[2023-10-29 21:15] LABS: Glucose - Point of Care 213 mg/dl (70-99)
[2023-10-29] MEDS: XALATAN OPHTHALMIC SOLUTION 1 DROP BOTH EYES (21:41)
[2023-10-29 23:33] VITALS: BP 113/63
[2023-10-30] MEDS: NSS 1000 IV (01:06)
[2023-10-30] MEDS: ANCEF 10 IV ×3 (03:21→19:53)
[2023-10-30] MEDS: VANCOCIN 275 MG IV ×2 (05:32→17:38)
[2023-10-30 07:33] VITALS: BP 147/79
[2023-10-30 07:34] LABS: Hematocrit 31.2 % (39.0-52.0); Hemoglobin 10.6 g/dL (13.0-18.0); Mean Corpuscular Hgb 29.9 pg (27.0-31.0); Mean Corpuscular Volume 88.1 fL (80.0-94.0); Mean Platelet Volume 10.6 fL (7.4-10.4); Platelet Count 285 10^3/uL (130-400); Red Blood Cell Count 3.54 10^6/uL (4.70-6.10); Red Cell Dist. Width 13.6 % (11.5-14.5); White Blood Cell Count 18.4 10^3/uL (4.8-10.8)
[2023-10-30 07:39] LABS: Glucose - Point of Care 215 mg/dl (70-99)
[2023-10-30 07:45] LABS: Blood Urea Nitrogen 27 mg/dl (9-20); Calcium 8.6 mg/dl (8.4-10.2); Carbon Dioxide 29 mmol/L (22-30); Chloride 91 mmol/L (98-107); Estimated Creatinine Clearance 82 ml/min; Glucose 184 mg/dl (70-99); Sodium 128 mmol/L (135-145); eGFR > 60.00
[2023-10-30 07:55] LABS: Potassium 3.4 mmol/L (3.5-5.1)
[2023-10-30] MEDS: NOVOLOG FLEXPEN-HIGH RESISTANCE 4 UNITS SC ×3 (07:56→17:36)
[2023-10-30] MEDS: NOVOLOG FLEXPEN 8 UNITS SC ×3 (07:57→17:36)
[2023-10-30] MEDS: COSOPT EYE DROPS 1 DROP BOTH EYES ×2 (08:05→19:56)
[2023-10-30 08:06] LABS: TSH 0.44 uIU/ml (0.47-4.68)
[2023-10-30] MEDS: GLUCOPHAGE XR EXTENDED RELEASE 500 MG PO (08:06)
[2023-10-30] MEDS: PROTONIX 40 MG PO (08:06)
[2023-10-30] MEDS: ASPIR LOW (ENTERIC COATED) 81 MG PO ×2 (08:06→19:55)
[2023-10-30] MEDS: FLOMAX 0.400000000000000022 MG PO ×2 (08:06→19:55)
[2023-10-30] MEDS: COZAAR 100 MG PO (08:06)
[2023-10-30] MEDS: LOPID 600 MG PO ×2 (08:06→19:55)
--- NOTE | 2023-10-30 08:35 | PHA.VAN.FU ---
Vancomycin Assessment / Plan
- Assessment
Renal Function: Stable
WBC's are: Trending Up
In the past 24 hrs, patient has been: Afebrile
Concomitant Antimicrobials: cefazolin
- Dosing Plan
Continue: Vanc 1250mg Q12H
- Monitoring Plan
No level(s) ordered at this time: consider levels in next few days
- Follow Up
Pharmacy will continue to follow.
Vancomycin Follow UP
- -
Patient Age: 83
Patient Sex: Male
Vancomycin Day #: 2
Indication: Bacteremia
Requesting Provider: Dr. Moseley
Pertinent Antimicrobial Allergies:
no pertinent antibiotic allergies
Height / Weight:
Height 6 ft
Actual Weight 120.9 kg
Pertinent Past Medical History: BMI ~36
- Vital Signs / Lab Results
Temp Pulse Resp BP Pulse Ox
98.7 F 74 20 147/79 92
10/30/23 07:33 10/30/23 07:33 10/30/23 07:33 10/30/23 07:33 10/30/23 07:33
Lab Results - Hematology
10/28/23 10/29/23 10/30/23
12:14 06:35 06:15
WBC 15.9 H 16.2 H 18.4 H
Lab Results - Chemistry
10/28/23 10/29/23 10/30/23
12:14 06:35 06:15
BUN 42 H 31 H 27 H
Creatinine 1.1 0.8 0.9
Estimated Creat Clear 67 92 82
Albumin 3.8
Microbiology Results
10/28/23 16:10 Body Fluid Culture - Preliminary
Joint Fluid No Growth After 18-24 Hours
Gram Stain - Final
10/28/23 14:07 Blood Culture - Preliminary
Blood/Venous Staphylococcus aureus
Gram Stain - Final
10/28/23 14:18 Blood Culture - Preliminary
Blood/Venous Positive culture in progress
Gram Stain - Final
--- NOTE | 2023-10-30 08:49 | W.PN.UPDATE ---
Update Note
Progress Note Update
Mr. Villanueva is resting comfortably in bed this morning. He reports his shoulder pain has improved significantly over the last few days. He does endorse mild discomfort with ROM, but otherwise is feeling well.
Directed exam o the right shoulder reveals no significant erythema, ecchymosis, effusion nor lesions. No tenderness to palpation about the shoulder. ROM only slightly limited secondary to patient discomfort. NVID.
Cultures from shoulder joint fluid reveal no growth thus far.
Low suspicion for septic arthritis. Will continue to follow cultures. Currently on cefazolin and vanco for bacteremia. Continue with recommendation per ID and IM.
--Encouraged gentle ROM of shoulder to tolerance. Patient may benefit from PT/OT while admitted.
--Continue pain control per primary.
--Orthopedics will continue to follow along pending final cultures.
[2023-10-30] MEDS: KCL 40 MEQ PO (09:29)
--- NOTE | 2023-10-30 11:01 | W.PN.HOSP.TC ---
Today's Communication/Plan
-
Await MRI of the spine
Await TTE
IV antibiotics
ID recs
Assessment / Plan
Assessment / Plan
Physical exam:
General: Acutely ill.
HEENT: Normocephalic, Atraumatic and Moist Mucous Membranes
Respiratory: Clear to Auscultation; Negative Wheezes, Rales or Rhonchi
Cardiac: Regular Rhythm and S1/S2
GI: Soft, Nontender and Nondistended
Musculoskeletal: Right shoulder pain and decreased range of motion. No erythema or warmth. No Clubbing, No Cyanosis and No Edema
Neuro: Awake, Alert and Oriented
Psych: Calm
A/P:
Bacteremia:
Blood cultures with Staph aureus, likely MSSA
Start IV cefazolin
Repeat blood cultures
Plan for transthoracic echocardiogram
Follow-up joint aspiration cultures-preliminary fortunately negative so far
MRI of the cervical, thoracic and lumbar spine pending
TTE pending
ID consult
Right shoulder pain status post IR aspiration on 10/27, rule out septic arthritis:
Follow-up cultures
X-ray shoulder ordered
Orthopedic consulted
Hyponatremia:
Etiology multifactorial -HCTZ, Hyperglycemia, Dehydration, Hypokalemia and SIADH related
Tolerating diet observe off IV fluids
Discontinue HCTZ
Start oral fluid restriction
Tighter blood sugar control
Urine sodium 82, urine osmolality 531, serum osmolarity 285. Check tsh and cortisol in am.
Slowly improving
Leukocytosis:
Infectious and steroids related both
Continue to trend
Diabetes mellitus type 2:
Diabetic diet
Will continue to check blood sugars before meals and at bedtime
Will continue insulin sliding scale
Will continue oral hypoglycemics, metformin
Will add insulin 8 units before each meal for better blood sugar control
Will monitor blood sugar and adjust medications accordingly
Update hemoglobin A1c in a.m. is 7.5
Hypokalemia:
Replete and trend
Primary hypertension:
Continue home antihypertensives, losartan, Norvasc. Hold HCTZ due to hyponatremia.
Monitor blood pressure and adjust medications accordingly.
Hyperlipidemia:
Continue home statins, atorvastatin 10 mg p.o. nightly
Continue gemfibrozil 600 mg twice a day
BPH:
Continue Flomax 0.4 mg twice a day
Anemia:
Hemoglobin stable at 11.3
Continue to monitor trend
History metastatic prostate cancer/bladder cancer:
Continue outpatient follow-up.
DVT prophylaxis:
Lovenox SQ daily
CODE STATUS:
Full code
PT/OT�eventual SNF on discharge
Discussed with patient spouse at bedside in detail
Anticipated Discharge: > 48 hours
Subjective/Interval History
-
Date of Service: October 30, 2023
States of shoulder soreness
Tolerating diet
Objective Data
-
Labs:
Laboratory Results
10/30/23
06:15
WBC 18.4 H
Hgb 10.6 L
Hct 31.2 L
Plt Count 285
Sodium 128 L
Potassium 3.4 L
Chloride 91 L
Carbon Dioxide 29
BUN 27 H
Creatinine 0.9
Glucose 184 H
Calcium 8.6
Vital Signs:
Vital Signs
Temp Pulse Resp BP Pulse Ox
98.7 F 74 20 147/79 92
10/30/23 07:33 10/30/23 07:33 10/30/23 07:33 10/30/23 07:33 10/30/23 07:33
I&O
10/29/23 10/30/23 10/31/23
06:59 06:59 06:59
Intake Total 480 / 480 2380 / 2380
Output Total 900 / 900 2200 / 2200
Balance -420 / -420 180 / 180
Data Reviewed
-
Total Time Spent with Patient (in minutes): 56
[2023-10-30 11:09] LABS: Glucose - Point of Care 247 mg/dl (70-99)
--- NOTE | 2023-10-30 11:21 | W.PN.ID1 ---
Date of Service
Date of Service: October 30, 2023
Today's Communication
Continue abx.
Assessment / Plan
Staph aureus bacteremia
Back discomfort/shoulder discomfort
Leukocytosis
Encephalopathy
Hyponatremia
Elevated ESR
Elevated CRP
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
GERD
Hx Caldera's esophagitis
HTN
Dyslipidemia
DM
Nephrolithiasis
Recommendations:
Continue with cefazolin / vanco while final susceptibility data is pending.
Further antibiotic selection and de-escalation as culture data is returned.
Repeat blood cultures have been ordered; will follow.
Await MRI to assess for epidural collection or discitis.
Monitor white count and temperature curve.
Chief Complaint
-: Bacteremia
Subjective / Review of Systems
Review of Systems: No Fever and No Chills
Vital Signs / Physical Exam
Vital Signs
Vital Signs
Temp Pulse Resp BP Pulse Ox
98.7 F 74 20 147/79 92
10/30/23 07:33 10/30/23 07:33 10/30/23 07:33 10/30/23 07:33 10/30/23 07:33
Physical Exam
Constitutional: Comfortable, Chronically Ill and Non-toxic
Eyes: No Conjunctival Hemorrhage and Sclera Anicteric
Cardiovascular: S1/S2; Negative S3/S4 or Murmur
Pulmonary: Non Labored
Gastrointestinal: Soft and Non Tender
Extremities: Negative Erythema, Splinter Hemorrhage or Janeway Lesions
Neurological: Awake and Alert
Psychological: Calm
Objective Data
Lab Data
Lab Results
10/30/23 06:15
10/30/23 06:15
Estimated Creat Clear 82 ml/min 10/30/23 06:15
Total Bilirubin 1.1 mg/dl (0.2-1.3) 10/28/23 12:14
AST 40 U/L (17-59) 10/28/23 12:14
ALT 44 U/L (0-50) 10/28/23 12:14
Alkaline Phosphatase 62 U/L (38-126) 10/28/23 12:14
Most recent labs reviewed.
Micro Results:
10/28/23 14:18 Blood Culture - Preliminary
Blood/Venous Staphylococcus aureus
Gram Stain - Final
10/28/23 14:07 Blood Culture - Preliminary
Blood/Venous Staphylococcus aureus
Gram Stain - Final
10/29/23 14:54 Blood Culture - Pending
Blood/Venous
10/29/23 14:15 Blood Culture - Pending
Blood/Venous
10/28/23 16:10 Body Fluid Culture - Preliminary
Joint Fluid No Growth After 18-24 Hours
Gram Stain - Final
Imaging:
10/25/2023 CT chest/abdomen/pelvis: No evidence of thoracic aortic aneurysm/dissection and no evidence of abdominal aortic aneurysm/dissection. Prior cholecystectomy. No biliary tract dilatation. Sclerotic densities again seen in the left seventh
rib, right iliac bone and right sacrum correlating with known bony metastasis. Hepatomegaly. Urinary bladder significantly obscured. Colonic diverticulosis. Please see full dictation for additional detail.
--- NOTE | 2023-10-30 15:48 | CM ---
Addendum entered by Milka Stewart 10/30/23 15:52:
Patient remains on IV antibiotics.
Original Note:
CM reviewed chart. [facility] and [facility] patient pending bed availability/when patient is clear for discharge. Per Hospitalist, patient not clear for discharge at this time, possibly Saturday or Saturday. CM
will continue to follow for discharge planning needs, will need facility when clear for discharge.
Plan; SNF pending bed availability/when patient is clear for discharge, several accepting facilities at this time.
[2023-10-30 16:47] LABS: Glucose - Point of Care 232 mg/dl (70-99)
[2023-10-30 16:57] VITALS: BP 161/88
[2023-10-30] MEDS: LOVENOX 40 MG SC (17:39)
[2023-10-30] MEDS: LIPITOR 10 MG PO (17:41)
[2023-10-30] MEDS: NORVASC 5 MG PO (17:42)
[2023-10-30] MEDS: DILAUDID 0.5 MG IV ×2 (18:27→22:54)
[2023-10-30] MEDS: XALATAN OPHTHALMIC SOLUTION 1 DROP BOTH EYES (21:07)
[2023-10-30] MEDS: TYLENOL 650 MG PO (21:16)
[2023-10-30 21:39] LABS: Glucose - Point of Care 156 mg/dl (70-99)
[2023-10-30 23:29] VITALS: BP 108/60
[2023-10-31] MEDS: ANCEF 10 IV ×3 (05:10→20:38)
[2023-10-31] MEDS: VANCOCIN 275 MG IV (05:10)
[2023-10-31 07:30] VITALS: BP 169/99
[2023-10-31] MEDS: NOVOLOG FLEXPEN-HIGH RESISTANCE 2 UNITS SC (08:00)
[2023-10-31] MEDS: COSOPT EYE DROPS 1 DROP BOTH EYES ×2 (08:00→20:40)
[2023-10-31] MEDS: LOPID 600 MG PO ×2 (08:00→20:38)
[2023-10-31] MEDS: FLOMAX 0.400000000000000022 MG PO ×2 (08:00→20:38)
[2023-10-31] MEDS: ASPIR LOW (ENTERIC COATED) 81 MG PO (08:00)
[2023-10-31] MEDS: NOVOLOG FLEXPEN 8 UNITS SC ×3 (08:00→17:01)
[2023-10-31] MEDS: COZAAR 100 MG PO (08:00)
[2023-10-31] MEDS: PROTONIX 40 MG PO (08:00)
[2023-10-31 08:04] LABS: Glucose - Point of Care 181 mg/dl (70-99)
[2023-10-31 08:19] LABS: Hematocrit 32.4 % (39.0-52.0); Hemoglobin 11.2 g/dL (13.0-18.0); Mean Corp Hgb Conc. 34.6 g/dL (33.0-37.0); Mean Corpuscular Hgb 30.2 pg (27.0-31.0); Mean Corpuscular Volume 87.3 fL (80.0-94.0); Mean Platelet Volume 10.5 fL (7.4-10.4); Platelet Count 311 10^3/uL (130-400); Red Blood Cell Count 3.71 10^6/uL (4.70-6.10); Red Cell Dist. Width 13.8 % (11.5-14.5); White Blood Cell Count 17.2 10^3/uL (4.8-10.8)
[2023-10-31 08:55] LABS: Blood Urea Nitrogen 23 mg/dl (9-20); Calcium 8.6 mg/dl (8.4-10.2); Carbon Dioxide 31 mmol/L (22-30); Chloride 91 mmol/L (98-107); Estimated Creatinine Clearance 92 ml/min; Glucose 168 mg/dl (70-99); Potassium 3.6 mmol/L (3.5-5.1); Sodium 130 mmol/L (135-145); eGFR > 60.00
[2023-10-31] MEDS: DILAUDID 0.5 MG IV ×2 (09:14→22:07)
--- NOTE | 2023-10-31 10:39 | W.PN.HOSP.TC ---
Addendum entered and electronically signed by Igor Morales MD 10/31/23 16:20:
Patient cervical spine MRI positive for epidural abscess. Discussed case with infectious disease. Neurosurgery consulted and discussed case. Neurosurgery reviewed the images. Patient spouse called and updated over the phone in complete details
in regards for cervical MRI finding and neurosurgery evaluation.
Original Note:
Today's Communication/Plan
-
MRI of the cervical spine pending
Antibiotics per ID
Eventual SNF on dispo
Trend CBC
Assessment / Plan
Assessment / Plan
Physical exam:
General: Acutely ill.
HEENT: Normocephalic, Atraumatic and Moist Mucous Membranes
Respiratory: Clear to Auscultation; Negative Wheezes, Rales or Rhonchi
Cardiac: Regular Rhythm and S1/S2
GI: Soft, Nontender and Nondistended
Musculoskeletal: Right shoulder pain and decreased range of motion. No erythema or warmth. No Clubbing, No Cyanosis and No Edema
Neuro: Awake, Alert and Oriented
Psych: Calm
A/P:
MSSA bacteremia
Start IV cefazolin and vancomycin per ID.
Susceptibility results resistance noted to ampicillin, clinda and erythromycin.
Repeat blood cultures negative so far
Echocardiogram negative for vegetation.
Follow-up joint aspiration cultures-preliminary fortunately negative so far x 48 hours
MRI of the cervical, pending
MRI of the thoracic and lumbar spine were negative for acute abscess. Chronic changes noted.
ID consult
Right shoulder pain status post IR aspiration on 10/27, rule out septic arthritis:
Follow-up cultures remains negative x 48 hours.
X-ray shoulder ordered
Orthopedic consulted
Hyponatremia:
Etiology multifactorial -HCTZ, Hyperglycemia, Dehydration, Hypokalemia and SIADH related
Tolerating diet observe off IV fluids
Discontinue HCTZ
Start oral fluid restriction
Tighter blood sugar control
Urine sodium 82, urine osmolality 531, serum osmolarity 285. Check tsh and cortisol in am.
Slowly improving
Leukocytosis:
Infectious and steroids related both
Continue to trend
Diabetes mellitus type 2:
Diabetic diet
Will continue to check blood sugars before meals and at bedtime
Will continue insulin sliding scale
Will continue oral hypoglycemics, metformin
Will add insulin 8 units before each meal for better blood sugar control
Will monitor blood sugar and adjust medications accordingly
Update hemoglobin A1c in a.m. is 7.5
Hypokalemia:
Replete and trend
Primary hypertension:
Continue home antihypertensives, losartan, Norvasc. Hold HCTZ due to hyponatremia.
Monitor blood pressure and adjust medications accordingly.
Hyperlipidemia:
Continue home statins, atorvastatin 10 mg p.o. nightly
Continue gemfibrozil 600 mg twice a day
BPH:
Continue Flomax 0.4 mg twice a day
Anemia:
Hemoglobin stable at 11.3
Continue to monitor trend
History metastatic prostate cancer/bladder cancer:
Continue outpatient follow-up.
DVT prophylaxis:
Lovenox SQ daily
CODE STATUS:
Full code
PT/OT�eventual SNF on discharge
Discussed with patient spouse at bedside in detail
Anticipated Discharge: > 48 hours
Subjective/Interval History
-
Date of Service: October 31, 2023
States start 100 mg with sleep
Tolerating diet
Remains afebrile
Objective Data
-
Labs:
Laboratory Results
10/31/23
07:34
WBC 17.2 H
Hgb 11.2 L
Hct 32.4 L
Plt Count 311
Sodium 130 L
Potassium 3.6
Chloride 91 L
Carbon Dioxide 31 H
BUN 23 H
Creatinine 0.8
Glucose 168 H
Calcium 8.6
Vital Signs:
Vital Signs
Temp Pulse Resp BP Pulse Ox
97.9 F 83 18 169/99 97
10/31/23 07:30 10/31/23 07:30 10/31/23 07:30 10/31/23 07:30 10/31/23 08:00
I&O
10/30/23 10/31/23 11/01/23
06:59 06:59 06:59
Intake Total 2380 / 2380 120 / 120
Output Total 2200 / 2200 300 / 300
Balance 180 / 180 -180 / -180
Data Reviewed
-
Total Time Spent with Patient (in minutes): 55
--- NOTE | 2023-10-31 11:13 | CM ---
Addendum entered by Zita Villaseñor 10/31/23 11:21:
BELOW NOTE WAS ENTERED IN THE WRONG MEDICAL RECORD. PLEASE DISREGARD.
Original Note:
I met with Logan and his girlfriend who was at his bedside. Logan is feeling better today, but still with NGT. We spoke about his activities and Logan advised that he works for a [employer] center to stay active.
He anticipates returning home at discharge.
CM will continue to follow.
--- NOTE | 2023-10-31 11:35 | CM ---
Logan continues on IV abx and still with high level of pain. Cervical MRI is pending. Plan for SNF at discharge which is currently anticipated to be >48 hours.
[facility], [facility] and [facility] are the current facilities of choice. [facility] cannot admit over the weekend.[facility] bed availability at the time of discharge.
Case Management following to facilitate discharge once Logan is medically stable.
[2023-10-31 11:37] LABS: Glucose - Point of Care 286 mg/dl (70-99)
[2023-10-31] MEDS: NOVOLOG FLEXPEN-HIGH RESISTANCE 7 UNITS SC (11:37)
[2023-10-31 12:21] VITALS: BP 140/77; BP 156/87; PULSE 80; O2SAT 95
[2023-10-31 12:26] VITALS: BP 140/77; BP 156/87
[2023-10-31 16:43] LABS: Glucose - Point of Care 140 mg/dl (70-99)
[2023-10-31] MEDS: NOVOLOG FLEXPEN-HIGH RESISTANCE 1 UNITS SC (17:01)
[2023-10-31] MEDS: NORVASC 5 MG PO (17:03)
[2023-10-31] MEDS: LIPITOR 10 MG PO ×2 (17:03)
[2023-10-31] MEDS: LOVENOX 40 MG SC (17:04)
--- NOTE | 2023-10-31 17:49 | W.PN.UPDATE ---
Update Note
Progress Note Update
Contacted by Dr. Morales regarding patients MRI findings
MRI shows cervical epidural abscess with severe stenosis at C3-5
D/w his nurse that he has severe pain
Plan for OR tomorrow for cervical lami and evac of abscess
NPO after MN
holding ASA and Lovenox
--- NOTE | 2023-10-31 18:03 | W.PN.UPDATE ---
Update Note
Progress Note Update
R shoulder cultures with no growth (final). Patient reports improvement in ROM and denies any significant pain upon passive ROM. No surgical intervention planned for R shoulder. Please call with questions.
[2023-10-31] MEDS: XALATAN OPHTHALMIC SOLUTION 1 DROP BOTH EYES (20:40)
[2023-10-31 21:37] LABS: Glucose - Point of Care 393 mg/dl (70-99)
[2023-10-31 23:42] VITALS: BP 155/93
[2023-11-01] VITALS (13 sets, daily range): BP systolic 0–159; BP diastolic 67–97
[2023-11-01] MEDS: ANCEF 10 IV ×2 (03:57→21:44)
[2023-11-01 06:05] LABS: Glucose - Point of Care 212 mg/dl (70-99)
[2023-11-01] MEDS: NOVOLOG FLEXPEN SC ×3 (07:12→21:49)
[2023-11-01] MEDS: NOVOLOG FLEXPEN-HIGH RESISTANCE 4 UNITS SC (07:12)
--- NOTE | 2023-11-01 07:19 | W.PN.HOSP.TC ---
Addendum entered and electronically signed by Igor Morales MD 11/01/23 15:04:
Other.
Original Note:
Today's Communication/Plan
-
OR per neurosurgery
Continue IV antibiotic
Continue n.p.o.
Assessment / Plan
Assessment / Plan
Physical exam:
General: Morbidly obese, not in acute distress
HEENT: Normocephalic, Atraumatic and Moist Mucous Membranes
Respiratory: Clear to Auscultation; Negative Wheezes, Rales or Rhonchi
Cardiac: Regular Rhythm and S1/S2
GI: Soft, Nontender and Nondistended
Musculoskeletal: Right shoulder pain and decreased range of motion. No erythema or warmth. No Clubbing, No Cyanosis and No Edema
Neuro: Awake, Alert and Oriented
Psych: Calm
A/P:
MSSA bacteremia/cervical epidural abscess
Start IV cefazolin and vancomycin per ID. Vancomycin now discontinued
Susceptibility results resistance noted to ampicillin, clinda and erythromycin.
Repeat blood cultures negative so far
Echocardiogram negative for vegetation.
Follow-up joint aspiration cultures-preliminary fortunately negative so far x 48 hours
MRI of the cervical with epidural abscess in the left anterior spinal canal from C2-C4. Severe secondary spinal canal stenosis at C3-C4 secondary to epidural fluid collection and meningeal thickening/enhancement. Mild signal alteration in the
spinal cord at C4 suspicious for compressive myelopathy. Prevertebral abscess at C3-C4. Left posterior paravertebral developing abscess and phlegmon at C3-C4. Minimal discitis at C3-C4. Suspicious. Mild septic arthritis of the bilateral C2-C3
and C3-C4 facet joints.
MRI of the thoracic and lumbar spine were negative for acute abscess. Chronic changes noted.
Discussed case with neurosurgery recommending surgery.
Per Campoverde score patient with 0.2% cardiovascular risk. Patient with class I�class II RCRI cardiovascular risk necessary for emergent spinal surgery. Patient had recent echocardiogram with no regional wall motion abnormality. Prior to arrival to
the hospital patient was able to ambulate without any chest pain or difficulty. Medically necessary surgery and can proceed. Monitor postop closely.
Blood cultures from 10/28 surveillance remains positive
ID and neurosurgery following. Appreciate recs
Right shoulder pain status post IR aspiration on 10/27, rule out septic arthritis:
Follow-up cultures remains negative x 48 hours.
X-ray shoulder ordered
Orthopedic consulted
Hyponatremia:
Etiology multifactorial -HCTZ, Hyperglycemia, Dehydration, Hypokalemia and SIADH related
Tolerating diet observe off IV fluids
Discontinue HCTZ
Start oral fluid restriction
Tighter blood sugar control
Urine sodium 82, urine osmolality 531, serum osmolarity 285.
Slowly improving
Leukocytosis:
Infectious and steroids related both
Continue to trend
Diabetes mellitus type 2:
Diabetic diet
Will continue to check blood sugars before meals and at bedtime
Will continue insulin sliding scale
Will continue oral hypoglycemics, metformin
Will add insulin 8 units before each meal for better blood sugar control
Will monitor blood sugar and adjust medications accordingly
Update hemoglobin A1c in a.m. is 7.5
Hypokalemia:
Replete and trend
Primary hypertension:
Continue home antihypertensives, losartan, Norvasc. Hold HCTZ due to hyponatremia.
Monitor blood pressure and adjust medications accordingly.
Hyperlipidemia:
Continue home statins, atorvastatin 10 mg p.o. nightly
Continue gemfibrozil 600 mg twice a day
BPH:
Continue Flomax 0.4 mg twice a day
Anemia:
Hemoglobin stable
Continue to monitor trend
History metastatic prostate cancer/bladder cancer:
Continue outpatient follow-up.
DVT prophylaxis: Lovenox held in the setting of surgery
CODE STATUS:
Full code
PT/OT�eventual SNF on discharge
Discussed with patient spouse at bedside in detail and answered all questions.
Anticipated Discharge: > 48 hours
Subjective/Interval History
-
Date of Service: November 01, 2023
States some mild neck pain
States feeling better compared to yesterday
Denies any chest pain shortness of breath
Spouse at bedside
Objective Data
-
Labs:
Laboratory Results
11/01/23
06:32
WBC Pending
Hgb Pending
Hct Pending
Plt Count Pending
Sodium Pending
Potassium Pending
Chloride Pending
Carbon Dioxide Pending
BUN Pending
Creatinine Pending
Glucose Pending
Calcium Pending
Vital Signs:
Vital Signs
Temp Pulse Resp BP Pulse Ox
98.2 F 82 20 155/93 94
10/31/23 23:42 10/31/23 23:42 10/31/23 23:42 10/31/23 23:42 10/31/23 23:42
I&O
10/31/23 11/01/23 11/02/23
06:59 06:59 06:59
Intake Total 120 / 120 1420 / 1420
Output Total 300 / 300
Balance -180 / -180 1420 / 1420
Data Reviewed
-
Total Time Spent with Patient (in minutes): 62
[2023-11-01 07:20] LABS: Hemoglobin 11.2 g/dL (13.0-18.0); Mean Corp Hgb Conc. 33.9 g/dL (33.0-37.0); Mean Corpuscular Hgb 30.2 pg (27.0-31.0); Mean Corpuscular Volume 88.9 fL (80.0-94.0); Mean Platelet Volume 10.4 fL (7.4-10.4); Platelet Count 304 10^3/uL (130-400); Red Blood Cell Count 3.71 10^6/uL (4.70-6.10); Red Cell Dist. Width 13.4 % (11.5-14.5); White Blood Cell Count 16.8 10^3/uL (4.8-10.8)
[2023-11-01 07:47] LABS: Blood Urea Nitrogen 20 mg/dl (9-20); Calcium 8.7 mg/dl (8.4-10.2); Carbon Dioxide 28 mmol/L (22-30); Chloride 91 mmol/L (98-107); Estimated Creatinine Clearance 123 ml/min; Glucose 170 mg/dl (70-99); Potassium 3.7 mmol/L (3.5-5.1); Sodium 129 mmol/L (135-145); eGFR > 60.00
--- NOTE | 2023-11-01 08:16 | W.PN.ID1 ---
Date of Service
Date of Service: November 01, 2023
Today's Communication
Continue antibiotics.
Assessment / Plan
Staph aureus bacteremia
Back discomfort/shoulder discomfort
Cervical epidural abscess
Leukocytosis
Encephalopathy
Hyponatremia
Elevated ESR
Elevated CRP
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
GERD
Hx Caldera's esophagitis
HTN
Dyslipidemia
DM
Nephrolithiasis
Recommendations:
MSSA identified.
Continue with cefazolin. Vancomycin previously discontinued.
Repeat blood cultures have been ordered; will follow.
Neurosurgery has evaluated patient, and patient tentatively for OR today for cervical laminectomy and evacuation of abscess.
Monitor white count and temperature curve.
����������������������������������������������������������
Chief Complaint
-: Bacteremia and Other (Epidural abscess)
Subjective / Review of Systems
Patient seen and examined. Reports generalized pain. Also notes some right shoulder discomfort. Denies neck pain to me.
Review of Systems: No Fever
Vital Signs / Physical Exam
Vital Signs
Vital Signs
Temp Pulse Resp BP Pulse Ox
97.8 F 93 18 159/97 94
11/01/23 07:30 11/01/23 07:30 11/01/23 07:30 11/01/23 07:30 11/01/23 07:30
Physical Exam
Constitutional: Comfortable, Chronically Ill and Non-toxic
Eyes: No Conjunctival Hemorrhage and Sclera Anicteric
Cardiovascular: S1/S2; Negative S3/S4 or Murmur
Pulmonary: Non Labored; Negative Wheezes or Rales
Gastrointestinal: Soft, Non Tender, Non Distended and Normal Bowel Sounds
Extremities: Edema; Negative Cyanosis, Erythema, Splinter Hemorrhage or Janeway Lesions
Musculoskeletal: Spinal Tenderness
Neurological: Awake, Alert, No Motor Deficits and Other (Upper extremity motor strength 3/5)
Psychological: Calm
Objective Data
Lab Data
Lab Results
11/01/23 06:32
11/01/23 06:32
Estimated Creat Clear 123 ml/min 11/01/23 06:32
Total Bilirubin 1.1 mg/dl (0.2-1.3) 10/28/23 12:14
AST 40 U/L (17-59) 10/28/23 12:14
ALT 44 U/L (0-50) 10/28/23 12:14
Alkaline Phosphatase 62 U/L (38-126) 10/28/23 12:14
Most recent labs reviewed.
Micro Results:
10/29/23 14:15 Blood Culture - Preliminary
Blood/Venous Positive culture in progress
10/29/23 14:54 Blood Culture - Preliminary
Blood/Venous No Growth in 48 hours- Final report to follow
10/28/23 16:10 Body Fluid Culture - Final
Joint Fluid No Growth After 72 Hours
Gram Stain - Final
10/28/23 14:18 Blood Culture - Final
Blood/Venous S aureus-Methicillin Sensitive
Gram Stain - Final
10/28/23 14:07 Blood Culture - Final
Blood/Venous S aureus-Methicillin Sensitive
Gram Stain - Final
Imaging:
10/31/2023 MRI cervical spine: Rim-enhancing fluid collection in the left anterior aspect of the spinal canal from C2 through C4 compatible with an epidural abscess measuring 0.7 x 1.5 x 4.4 cm (AP x TV x SI). Severe secondary spinal canal stenosis
centered at the C3-C4 level secondary to the epidural fluid collection and meningeal thickening and enhancement. Prevertebral rim-enhancing fluid collection anterior to the C3-C4 intervertebral disc space also compatible with an abscess measuring
0.7 x 1.8 x 1.8 cm. Paravertebral soft tissue edema and enhancement about the upper cervical spine, left greater than right. Developing abscess in the left posterior paravertebral soft tissues at C3-C4 measuring approximately 2.0 x 0.9 x 1.8 cm.
Probable contiguous phlegmon further medially. No bone marrow signal changes to suggest osteomyelitis. Please see full dictation for additional detail.
10/25/2023 CT chest/abdomen/pelvis: No evidence of thoracic aortic aneurysm/dissection and no evidence of abdominal aortic aneurysm/dissection. Prior cholecystectomy. No biliary tract dilatation. Sclerotic densities again seen in the left seventh
rib, right iliac bone and right sacrum correlating with known bony metastasis. Hepatomegaly. Urinary bladder significantly obscured. Colonic diverticulosis. Please see full dictation for additional detail.
[2023-11-01] MEDS: FLOMAX 0.400000000000000022 MG PO ×2 (09:44→21:44)
[2023-11-01] MEDS: PROTONIX 40 MG PO (09:44)
[2023-11-01] MEDS: LOPID 600 MG PO ×2 (09:44→22:21)
[2023-11-01] MEDS: COSOPT EYE DROPS 1 DROP BOTH EYES ×2 (09:45→21:44)
--- NOTE | 2023-11-01 09:45 | PTCARENOTE ---
Patient drowsy with brief periods of alertness, but then lethargic at times, requires repeated verbal and occasional tactile stimuli to arouse. Also with difficulty following commands-requires repeated cueing, falls asleep and snores while nursing
speaking to patient. Generalized weakness noted along with considerable but inconsistent b/l UE weakness. Patient's insisted for patient to sit in chair. Patient was able to stand and shuffle over to transfer to chair (with very heavy assist of
2 nursing staff and rolling walker), but was too weak and drowsy to safely remain in chair. Patient was transferred back to bed heavy assist of 2 and rolling walker. Patient to remain in bed with call gould in reach and fall precautions maintained.
[2023-11-01] MEDS: COZAAR 100 MG PO (09:48)
--- NOTE | 2023-11-01 11:26 | CM ---
CM reviewed chart, patient for OR today. Patient remains on IV antibiotics. Patient seen bedside, reports no needs to CM at this time. PT/OT recommendations remains SNF upon discharge, several accepting facilities pending on when patient is clear
for discharge. CM will continue to follow for discharge planning needs.
Plan; SNF when medically clear, several accepting facilities pending bed availability on day of discharge.
[2023-11-01 11:47] LABS: Glucose - Point of Care 185 mg/dl (70-99)
[2023-11-01] MEDS: NOVOLOG FLEXPEN-HIGH RESISTANCE 2 UNITS SC (12:29)
--- NOTE | 2023-11-01 12:49 | CON.NS ---
Chief Complaint
-
neck pain
History of Present Illness
83 year old male who presented to with neck pain. He states he has had neck pain since 2016 but on Saturday10/22/23 it became severe and he presented to the hospital on 10/24. He was seen and discharged from the ED. He then returned on 10/27 as the
pain became worse. He also developed weakness in the arms since being in the hospital and is now using diapers when he states prior to his admission he was continent. He states he has pain in his neck, radiates some to the shoulders. He denies any
weakness numbness or tingling to legs. He had an elevated white count on admission and cervical mri revealed C2-4 epidural abscess and we have been consulted.
Review of Systems
-
12 point review of systems negative unless otherwise stated in HPI
Medication and Allergies
Home Medications
Home Medications
�Medication �Instructions �Recorded
ascorbic acid (vitamin C) 500 mg 500 mg PO BID Supplement 04/17/19
tablet (Vitamin C)
gemfibrozil 600 mg tablet 600 mg PO BID High Cholesterol 04/17/19
pantoprazole 40 mg tablet,delayed 40 mg PO DAILY Gastrointestinal 04/17/19
release Issue
simvastatin 20 mg tablet 20 mg PO QPM High Cholesterol 04/17/19
tamsulosin 0.4 mg capsule 0.4 mg PO BID Urinary Issue 04/17/19
aspirin 81 mg tablet,delayed 81 mg PO BID Blood Clot 02/17/20
release Prevention/Tx
polyethylene glycol 3350 17 gram 17 grams PO DAILYPRN PRN 02/18/20
oral powder packet Constipation
losartan 100 1 tab PO DAILY Blood Pressure 06/05/22
mg-hydrochlorothiazide 25 mg tablet
omega 3-kzj-upx-fish oil 1,200 mg 1 cap PO HS Supplement 06/05/22
(144 mg-216 mg) capsule (Fish Oil)
acetaminophen 325 mg tablet 325 - 650 mg PO QIDPRN PRN mild 10/28/23
(Tylenol) pain
amlodipine 5 mg tablet 5 mg PO QPM Blood Pressure 10/28/23
cholecalciferol (vitamin D3) 125 125 mcg PO BID Supplement 10/28/23
mcg (5,000 unit) tablet
coenzyme Q10 100 mg capsule 100 mg PO QPM Supplement 10/28/23
(CoQ-10)
dorzolamide 22.3 mg-timolol 6.8 1 drp BOTH EYES BID Eye Condition 10/28/23
mg/mL eye drops
latanoprost 0.005 % eye drops 1 drp BOTH EYES HS Eye Condition 10/28/23
metformin 500 mg tablet,extended 500 mg PO BID Diabetes 10/28/23
release 24 hr
prednisone 20 mg tablet 20 mg PO DAILY inflammation 10/28/23
tramadol 50 mg tablet 50 mg PO Q6H PRN severe pain 10/28/23
Allergies
Allergies
Allergy/AdvReac Type Severity Reaction Status Date / Time
medication that stimulates Allergy patient Uncoded 10/28/23 11:39
bone iván doesn't
know name
seasonal Allergy sneezing, Uncoded 10/28/23 11:39
runny eyes
Physical Exam
-
Exam:
AAOx3
CN 2-12 GI
EOMI
sensation intact to LT
speech clear
breathing non-labored
motor: bilateral LE 5/5, RUE bicep 4-/5, wrist extension 3/5, intrinsics 2/5, LUE 2/5 throughout
cervical mri:
IMPRESSION:
1. Epidural abscess in the left anterior spinal canal from C2 through C4.
2. Severe secondary spinal canal stenosis at C3-C4 secondary to the epidural fluid collection and meningeal thickening/enhancement. Mild signal alteration in the spinal cord at C4 suspicious for compressive myelopathy.
3. Prevertebral abscess at C3-C4.
4. Left posterior paravertebral developing abscess and phlegmon at C3-C4.
5. Minimal discitis at C3-C4.
6. Suspicion for mild septic arthritis of the bilateral C2-C3 and C3-C4 facet joints.
Problems
-
Problem Status Onset Code
Acute pain of right shoulder M25.511
Acute hyponatremia E87.1
Generalized weakness R53.1
Assessment / Plan
-
cervical epidural abscess
-OR today with Dr. Issa for evacuation of abscess
-will send cultures intra-op
-continue antibiotics per ID
-pain control per primary team
-seen and discussed with Dr. Issa
[2023-11-01 13:12] LABS: Glucose - Point of Care 169 mg/dl (70-99)
[2023-11-01] MEDS: ANCEF IV (13:45)
--- NOTE | 2023-11-01 14:54 | PN.CDI ---
CDI
- -
CDI:
Physician Documentation Request
Admit Date: 10/28/23 15:38
Dear Doctor Carmen,
Patient admitted for cervical epidural abscess.
10/27 PCN: 'AAOx2, drowsy and forgetful.'
10/31 PCN: 'Patient drowsy with brief periods of alertness, but then lethargic at times, requires repeated verbal and occasional tactile stimuli to arouse. Also with difficulty following commands-requires repeated cueing, falls asleep and snores while
nursing speaking to patient...Patient was able to stand and shuffle over to transfer to chair (with very heavy assist of 2 nursing staff and rolling walker), but was too weak and drowsy to safely remain in chair. Patient was transferred back to bed
heavy assist of 2 and rolling walker.'
Based on the above, could you clarify in the Progress Notes which, if any of the following, is the most likely etiology of the altered mental status.
Encephalopathy - indicate type, such as metabolic, toxic, septic, alcoholic, anoxic, hypertensive etc. due to a specific condition such as UTI, CVA, hyponatremia etc.
Acute Delirium - indicate known or suspected etiology such as postoperative, due to opioids or other drugs etc. Can also indicate unknown or mixed etiologies.
Other
Use of terms such as suspected, likely, concern for, or probable (associated with a specific diagnosis that is being evaluated, monitored, or treated as if it exists) are acceptable and can be coded in the inpatient setting, when documented at the
time of discharge.
Thank you,
Nirmala Spring RN, BSN
CDI Specialist
Available via [employer] text
Please use your independent medical judgment in providing your response.
--- NOTE | 2023-11-01 16:01 | W.IMMPOSTOP ---
Surgical Immed Post Op Note
-
Primary Surgeon: Luis Manuel
Pre-op Diagnosis: Cervical epidural abscess C3-5
Post-op Diagnosis: same
Procedure Performed: Left sided C3-5 hemilaminectomy and evacuation of abscess
Anesthesia Type: gen
Specimen / Cultures: epidural abscess
Estimated Blood Loss: 50ml
Complications: none
Operative Findings:
[2023-11-01 16:30] LABS: Glucose - Point of Care 195 mg/dl (70-99)
[2023-11-01] MEDS: NSS 1000 IV (17:38)
--- NOTE | 2023-11-01 19:58 | PTCARENOTE ---
pt arrived to floor at 1820, dressing CDI, hemovac in place. pt is drowsy. able to lift arms when asked. NSS RFA 20g 80ml/h. in room. no diet but is still very drowsy to eat and swallow. bed low and call gould in reach.
[2023-11-01 21:03] LABS: Glucose - Point of Care 261 mg/dl (70-99)
[2023-11-01] MEDS: SENOKOT 17.1999999999999993 MG PO (21:44)
[2023-11-01] MEDS: XALATAN OPHTHALMIC SOLUTION 1 DROP BOTH EYES (21:44)
[2023-11-01] MEDS: NORVASC 5 MG PO (21:45)
[2023-11-01] MEDS: NOVOLOG FLEXPEN-HIGH RESISTANCE 7 UNITS SC (21:50)
[2023-11-01] MEDS: COLACE 100 MG PO (21:51)
[2023-11-01] MEDS: TYLENOL PO (22:25)
[2023-11-01] MEDS: TYLENOL 1000 MG PO (22:29)
[2023-11-02 03:02] VITALS: BP 140/75
[2023-11-02] MEDS: NSS 1000 IV ×2 (04:00→13:29)
[2023-11-02] MEDS: ANCEF 10 IV ×3 (04:00→20:25)
[2023-11-02] MEDS: TYLENOL 1000 MG PO ×3 (06:07→17:53)
[2023-11-02 07:46] VITALS: BP 158/82
[2023-11-02 07:50] LABS: Glucose - Point of Care 170 mg/dl (70-99)
--- NOTE | 2023-11-02 08:33 | W.PN.HOSP.TC ---
Today's Communication/Plan
-
Resume diet
Out of bed to chair
PT/OT
Adjust insulin
Assessment / Plan
Assessment / Plan
Gen-AAOx3, NAD, obese
HEENT-NC, AT, anicteric, clear oral mm
Neck-supple
CV-reg, no M, +S1/S2
Lungs-clear B/L
Abd-soft, NT, ND
Ext-no edema
Musculoskeletal-no cyanosis, clubbing
Skin-warm and dry, neck dressings intact with drain in place
Neuro-grossly non-focal
Psych-calm, cooperative
MSSA bacteremia/cervical epidural abscess -underwent successful cervical spine hemilaminectomy and abscess evacuation on October 31. Resume diet today. Out of bed to chair. Continue IV cefazolin per infectious disease. Repeat blood cultures pending.
Right shoulder pain status post IR aspiration on 10/27, rule out septic arthritis:
Follow-up cultures remains negative x 48 hours.
X-ray shoulder ordered
Orthopedic consulted
Hyponatremia -hydrochlorothiazide discontinued, would not resume on discharge. Sodium pending for today. Continue fluid restriction. 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
DM2 with hyperglycemia -hemoglobin A1c 7.5%. He was on metformin prior to admission. Currently on high resistance aspart corrective scale, aspart 8 units AC. Glucose 170 this morning, 261 last night. Continue aspart 8 units AC, change corrective
scale to low resistance. Add Lantus 10 units at bedtime.
Hypokalemia -resolved.
Essential hypertension - Continue home antihypertensives, losartan, Norvasc. Hold HCTZ due to hyponatremia.
Hyperlipidemia -
Continue home statins, atorvastatin 10 mg p.o. nightly
Continue gemfibrozil 600 mg twice a day
BPH:
Continue Flomax 0.4 mg twice a day
Chronic normocytic anemia -hemoglobin stable so far.
History metastatic prostate cancer/bladder cancer:
Continue outpatient follow-up.
Obesity due to excess calories
DVT prophylaxis: Lovenox held in the setting of surgery
Full code
PT/OT
Anticipated Discharge: > 48 hours
Subjective/Interval History
-
Date of Service: November 02, 2023
Patient seen and examined. Eager to get out of bed, asking to eat. No other complaints.
Objective Data
-
Labs:
Laboratory Results
11/02/23
06:00
WBC Pending
Hgb Pending
Hct Pending
Plt Count Pending
Sodium Pending
Potassium Pending
Chloride Pending
Carbon Dioxide Pending
BUN Pending
Creatinine Pending
Glucose Pending
Calcium Pending
Vital Signs:
Vital Signs
Temp Pulse Resp BP Pulse Ox
97.9 F 79 16 140/75 98
11/02/23 03:02 11/02/23 03:02 11/02/23 03:02 11/02/23 03:02 11/02/23 03:02
I&O
11/01/23 11/02/23 11/03/23
06:59 06:59 06:59
Intake Total 1420 / 1420 200 / 200
Output Total 0 / 0
Balance 1420 / 1420 200 / 200
Review of Systems
-
History Source: Patient
All other systems: Reviewed and negative
[2023-11-02 09:01] LABS: Hematocrit 31.5 % (39.0-52.0); Hemoglobin 10.6 g/dL (13.0-18.0); Mean Corp Hgb Conc. 33.7 g/dL (33.0-37.0); Mean Corpuscular Hgb 29.9 pg (27.0-31.0); Mean Platelet Volume 10.1 fL (7.4-10.4); Platelet Count 295 10^3/uL (130-400); Red Blood Cell Count 3.54 10^6/uL (4.70-6.10); Red Cell Dist. Width 13.4 % (11.5-14.5); White Blood Cell Count 12.5 10^3/uL (4.8-10.8)
[2023-11-02] MEDS: NOVOLOG FLEXPEN 8 UNITS SC ×3 (09:06→17:48)
[2023-11-02] MEDS: PROTONIX 40 MG PO (09:07)
[2023-11-02] MEDS: FLOMAX 0.400000000000000022 MG PO ×2 (09:08→20:26)
[2023-11-02] MEDS: COLACE 100 MG PO ×2 (09:08→20:26)
[2023-11-02] MEDS: COZAAR 100 MG PO (09:09)
[2023-11-02] MEDS: LOPID 600 MG PO ×2 (09:09→20:27)
[2023-11-02] MEDS: SENOKOT 17.1999999999999993 MG PO ×2 (09:09→20:27)
[2023-11-02] MEDS: COSOPT EYE DROPS 1 DROP BOTH EYES ×2 (09:10→20:26)
[2023-11-02 09:36] LABS: Blood Urea Nitrogen 17 mg/dl (9-20); Calcium 8.4 mg/dl (8.4-10.2); Carbon Dioxide 29 mmol/L (22-30); Chloride 95 mmol/L (98-107); Estimated Creatinine Clearance 123 ml/min; Glucose 172 mg/dl (70-99); Potassium 3.6 mmol/L (3.5-5.1); Sodium 132 mmol/L (135-145); eGFR > 60.00
[2023-11-02] MEDS: NOVOLOG FLEXPEN-HIGH RESISTANCE SC (10:54)
[2023-11-02 11:15] VITALS: BP 103/62; PULSE 82; O2SAT 97
[2023-11-02 11:27] VITALS: BP 103/62; PULSE 76; O2SAT 97
--- NOTE | 2023-11-02 11:40 | CM ---
CM following re: discharge planning.
Reviewed pt's chart, met with pt and pt's spouse at bedside.
Discharge order noted. Both pt and his spouse are aware, expressed their agreement with discharge. IMM reviewed, placed in chart, pt has a copy.
Both pt and his spouse are aware that [facility] SN[facility] and [facility] have no bed, [facility] and [facility] offered a bed. Both pt and his spouse preferred [facility] SNF.
CM spoke to [facility] SN[facility] liaison and she confirmed that pt is accepted for admission today.
[facility] nursing report: [phone]
Discharge instruction fax: [phone]
to schedule ambulance. [facility] completed and left with
D/C plan: [facility].
[2023-11-02 11:55] LABS: Glucose - Point of Care 246 mg/dl (70-99)
--- NOTE | 2023-11-02 12:18 | CM ---
CM following re: discharge planning.
Reviewed pt's chart, met with pt and pt's spouse at bedside.
CM consult to assist pt with discharge plan noted.
Both pt and his spouse are aware that [facility] home SNF and [facility] have no bed, [facility] and [facility] offered a bed. Both pt and his spouse preferred [facility] SNF.
CM spoke to [facility] SN[facility] liaison and she confirmed that pt will be accepted when medically stable.
CM will check with [facility] home SNF, [facility] and [facility] on Saturday to whether or not pt can be accepted there.
D/C plan: preferred SNF.
CM will follow to assist pt with discharge to a preferred SNF.
--- NOTE | 2023-11-02 12:29 | PN.NS ---
Subjective
-
no events, arm strength improving, drain clotted
Physical Exam
-
Exam:
AAOx3
CN 2-12 GI
EOMI
sensation intact to LT
speech clear
breathing non-labored
motor: bilateral LE 5/5, UE's 4/5 distally much improved
Problems
-
Problem Status Onset Code
Acute pain of right shoulder M25.511
Acute hyponatremia E87.1
Generalized weakness R53.1
Assessment / Plan
-
POD#1 C3-5 left sided HL and evac abscess
-much improved exam and pain
-drain troubleshot, if continued limited drainage will remove tomorrow
-PT./OT
-f/u intraop cultures
-abx as per ID
Today's Communication
-
--- NOTE | 2023-11-02 12:55 | W.PN.ID1 ---
Date of Service
Date of Service: November 02, 2023
Today's Communication
Continue with cefazolin.
5/ blood cultures may be clearing - will need to see two sets 48 hours negative before would consider PICC line - tentatively saturday
Assessment / Plan
Staph aureus bacteremia
Back discomfort/shoulder discomfort
Cervical epidural abscess
Leukocytosis
Encephalopathy
Hyponatremia
Elevated ESR
Elevated CRP
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
GERD
Hx Caldera's esophagitis
HTN
Dyslipidemia
DM
Nephrolithiasis
Recommendations:
5/3 blood cultures may be clearing - will need to see two sets 48 hours negative before would consider PICC line - tentatively saturday
10/27-10/28 MSSA bactermia
10/31 tissue culture s aureus
Continue with cefazolin.
Repeat blood cultures have been ordered; will follow.
PICC when blood cultures persistently clear
S/p laminectomy and evacuation of abscess 10/31
Monitor white count and temperature curve.
����������������������������������������������������������
Chief Complaint
-: Bacteremia and Other (Epidural abscess)
Subjective / Review of Systems
afebrile
bp stable
improving leukocytosis
cr stable
tissue culture with s aureus as expected
Vital Signs / Physical Exam
Vital Signs
Vital Signs
Temp Pulse Resp BP Pulse Ox
97.7 F 72 16 158/82 98
11/02/23 07:46 11/02/23 07:46 11/02/23 07:46 11/02/23 07:46 11/02/23 07:46
Physical Exam
Constitutional: No Acute Distress
Cardiovascular: Regular Rate and S1/S2; Negative Murmur or Rub
Pulmonary: Clear and Symmetric; Negative Wheezes or Rales
Gastrointestinal: Soft, Non Tender, Non Distended and Normal Bowel Sounds
Skin: Warm and Dry; Negative Rash or Jaundice
Lines: Other (drain - bloody output)
Objective Data
Lab Data
Lab Results
11/02/23 08:47
11/02/23 08:47
Estimated Creat Clear 123 ml/min 11/02/23 08:47
Total Bilirubin 1.1 mg/dl (0.2-1.3) 10/28/23 12:14
AST 40 U/L (17-59) 10/28/23 12:14
ALT 44 U/L (0-50) 10/28/23 12:14
Alkaline Phosphatase 62 U/L (38-126) 10/28/23 12:14
Most recent labs reviewed.
Micro Results:
11/01/23 16:13 Anaerobic Culture - Preliminary
Abscess Culture pending. Anaerobic cultures are examined after 3
days incubation. Additional information to follow.
11/01/23 16:13 Wound Culture - Preliminary
Abscess Staphylococcus aureus
Gram Stain - Preliminary
11/01/23 08:40 Blood Culture - Preliminary
Blood/Venous No Growth in 24 hours- Final report to follow
10/29/23 14:54 Blood Culture - Preliminary
Blood/Venous S aureus-Methicillin Sensitive
Gram Stain - Preliminary
11/02/23 06:38 Blood Culture - Pending
Blood/Venous
10/29/23 14:15 Blood Culture - Preliminary
Blood/Venous S aureus-Methicillin Sensitive
Gram Stain - Preliminary
10/28/23 16:10 Body Fluid Culture - Final
Joint Fluid No Growth After 72 Hours
Gram Stain - Final
10/28/23 14:18 Blood Culture - Final
Blood/Venous S aureus-Methicillin Sensitive
Gram Stain - Final
10/28/23 14:07 Blood Culture - Final
Blood/Venous S aureus-Methicillin Sensitive
Gram Stain - Final
Imaging:
10/31/2023 MRI cervical spine: Rim-enhancing fluid collection in the left anterior aspect of the spinal canal from C2 through C4 compatible with an epidural abscess measuring 0.7 x 1.5 x 4.4 cm (AP x TV x SI). Severe secondary spinal canal stenosis
centered at the C3-C4 level secondary to the epidural fluid collection and meningeal thickening and enhancement. Prevertebral rim-enhancing fluid collection anterior to the C3-C4 intervertebral disc space also compatible with an abscess measuring
0.7 x 1.8 x 1.8 cm. Paravertebral soft tissue edema and enhancement about the upper cervical spine, left greater than right. Developing abscess in the left posterior paravertebral soft tissues at C3-C4 measuring approximately 2.0 x 0.9 x 1.8 cm.
Probable contiguous phlegmon further medially. No bone marrow signal changes to suggest osteomyelitis. Please see full dictation for additional detail.
10/25/2023 CT chest/abdomen/pelvis: No evidence of thoracic aortic aneurysm/dissection and no evidence of abdominal aortic aneurysm/dissection. Prior cholecystectomy. No biliary tract dilatation. Sclerotic densities again seen in the left seventh
rib, right iliac bone and right sacrum correlating with known bony metastasis. Hepatomegaly. Urinary bladder significantly obscured. Colonic diverticulosis. Please see full dictation for additional detail.
[2023-11-02] MEDS: NOVOLOG FLEXPEN-LOW RESISTANCE 2 UNITS SC ×2 (13:33→17:48)
[2023-11-02 16:41] VITALS: BP 137/88
[2023-11-02 17:01] LABS: Glucose - Point of Care 237 mg/dl (70-99)
[2023-11-02] MEDS: LOVENOX 40 MG SC (17:50)
[2023-11-02] MEDS: NORVASC 5 MG PO (17:53)
[2023-11-02] MEDS: LIPITOR 10 MG PO (17:54)
--- NOTE | 2023-11-02 18:37 | PTCARENOTE ---
rash noted on pts back during AM care. Looks scabbed but stated is new. pt states is not itchy or irritating. Cleaned and applied clear barrier ointment each time he was rolled.
[2023-11-02] MEDS: XALATAN OPHTHALMIC SOLUTION 1 DROP BOTH EYES (20:26)
[2023-11-02 21:27] LABS: Glucose - Point of Care 272 mg/dl (70-99)
[2023-11-02] MEDS: LANTUS 0.100000000000000006 UNITS SC (22:02)
[2023-11-02 23:32] VITALS: BP 124/69
[2023-11-03] MEDS: TYLENOL 1000 MG PO ×4 (00:28→22:56)
[2023-11-03] MEDS: ANCEF 10 IV ×3 (04:14→20:01)
[2023-11-03 07:38] VITALS: BP 152/90
[2023-11-03 08:26] LABS: Glucose - Point of Care 163 mg/dl (70-99)
[2023-11-03] MEDS: NOVOLOG FLEXPEN 8 UNITS SC (08:28)
[2023-11-03] MEDS: NOVOLOG FLEXPEN-LOW RESISTANCE 1 UNITS SC (08:29)
--- NOTE | 2023-11-03 09:16 | W.PN.HOSP.TC ---
Today's Communication/Plan
-
Adjust insulin
PT/OT
Assessment / Plan
Assessment / Plan
Gen-AAOx3, NAD, obese
HEENT-NC, AT, anicteric, clear oral mm
Neck-supple
CV-reg, no M, +S1/S2
Lungs-clear B/L
Abd-soft, NT, ND
Ext-no edema
Musculoskeletal-no cyanosis, clubbing
Skin-warm and dry, neck dressings intact with drain in place
Neuro-grossly non-focal
Psych-calm, cooperative
MSSA bacteremia/cervical epidural abscess -underwent successful cervical spine hemilaminectomy and abscess evacuation on October 31. Continue IV cefazolin per infectious disease. Blood cultures from November 01 negative so far. White blood cell count coming
down, afebrile.
Right shoulder pain status post IR aspiration on 10/27, rule out septic arthritis:
Follow-up cultures remains negative x 48 hours.
X-ray shoulder ordered
Orthopedic consulted
Hyponatremia -hydrochlorothiazide discontinued, would not resume on discharge. Sodium 132 yesterday. Continue fluid restriction. 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
DM2 with hyperglycemia -hemoglobin A1c 7.5%. He was on metformin prior to admission. Currently on high resistance aspart corrective scale, aspart 8 units AC. Glucose 163 this morning, 272 last night. Will increase aspart to 12 units AC, continue
Lantus 10 units at bedtime, continue corrective scale.
Hypokalemia -resolved.
Essential hypertension - Continue home antihypertensives, losartan, Norvasc. Hold HCTZ due to hyponatremia.
Hyperlipidemia -
Continue home statins, atorvastatin 10 mg p.o. nightly
Continue gemfibrozil 600 mg twice a day
BPH:
Continue Flomax 0.4 mg twice a day
Chronic normocytic anemia -hemoglobin stable so far.
History metastatic prostate cancer/bladder cancer:
Continue outpatient follow-up.
Obesity due to excess calories
DVT prophylaxis: Lovenox held in the setting of surgery
Full code
Dispo - will need SNF when medically stable for discharge.
Updated at the bedside.
Anticipated Discharge: 24 - 48 hours
Subjective/Interval History
-
Date of Service: November 03, 2023
Patient seen and examined. Complaining of feeling cold.
Objective Data
-
Vital Signs:
Vital Signs
Temp Pulse Resp BP Pulse Ox
97.8 F 84 18 152/90 96
11/03/23 07:38 11/03/23 07:38 11/03/23 07:38 11/03/23 07:38 11/03/23 07:38
I&O
11/02/23 11/03/23 11/04/23
06:59 06:59 06:59
Intake Total 200 / 200 1680 / 1680
Output Total 0 / 0 70 / 70
Balance 200 / 200 1610 / 1610
Review of Systems
-
History Source: Patient
All other systems: Reviewed and negative
[2023-11-03] MEDS: COZAAR 100 MG PO (09:24)
[2023-11-03] MEDS: SENOKOT 17.1999999999999993 MG PO (09:24)
[2023-11-03] MEDS: FLOMAX 0.400000000000000022 MG PO ×2 (09:24→19:59)
[2023-11-03] MEDS: COSOPT EYE DROPS 1 DROP BOTH EYES ×2 (09:25→19:59)
[2023-11-03] MEDS: LOPID 600 MG PO ×2 (09:25→20:08)
[2023-11-03] MEDS: PROTONIX 40 MG PO (09:25)
[2023-11-03] MEDS: COLACE 100 MG PO (09:25)
--- NOTE | 2023-11-03 09:35 | PN.NS ---
Subjective
-
no events
Physical Exam
-
Exam:
AAOx3
CN 2-12 GI
EOMI
sensation intact to LT
speech clear
breathing non-labored
motor: bilateral LE 5/5, UE's 4/5 distally much improved remains with right UE deltoid weakness
Problems
-
Problem Status Onset Code
Acute pain of right shoulder M25.511
Acute hyponatremia E87.1
Generalized weakness R53.1
Assessment / Plan
-
POD#2 C3-5 left sided HL and evac abscess
-much improved exam and pain
-drain removed
-PT./OT
-intraop cultures: + for Staph
-abx as per ID
-f/u with me in 2 weeks, info given
Today's Communication
-
[2023-11-03] MEDS: TYLENOL PO (11:40)
--- NOTE | 2023-11-03 11:43 | W.PN.ID1 ---
Date of Service
Date of Service: November 03, 2023
Today's Communication
5/3 blood cultures may be clearing - will need to see two sets 48 hours negative before would consider PICC line - tentatively saturday
Assessment / Plan
Staph aureus bacteremia
Back discomfort/shoulder discomfort
Cervical epidural abscess
Leukocytosis
Encephalopathy
Hyponatremia
Elevated ESR
Elevated CRP
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
GERD
Hx Caldera's esophagitis
HTN
Dyslipidemia
DM
Nephrolithiasis
Recommendations:
5/3 blood cultures may be clearing - will need to see two sets 48 hours negative before would consider PICC line - tentatively saturday
10/27-10/28 MSSA bactermia
10/31 tissue culture s aureus
Continue with cefazolin.
Repeat blood cultures have been ordered; will follow.
PICC when blood cultures persistently clear
S/p laminectomy and evacuation of abscess 10/31
Monitor white count and temperature curve.
����������������������������������������������������������
Chief Complaint
-: Bacteremia and Other (Epidural abscess)
Subjective / Review of Systems
afebrile
bp stable
repeat blood cultures may be clearing
tissue culture mssa as expected
no new complaints
drain removed
Vital Signs / Physical Exam
Vital Signs
Vital Signs
Temp Pulse Resp BP Pulse Ox
97.8 F 84 18 152/90 96
11/03/23 07:38 11/03/23 07:38 11/03/23 07:38 11/03/23 07:38 11/03/23 07:38
Physical Exam
Constitutional: No Acute Distress
Cardiovascular: Regular Rate and S1/S2; Negative Murmur or Rub
Pulmonary: Clear and Symmetric; Negative Wheezes or Rales
Gastrointestinal: Soft, Non Tender, Non Distended and Normal Bowel Sounds
Skin: Warm and Dry; Negative Rash or Jaundice
Lines: PIV
Objective Data
Lab Data
Lab Results
11/02/23 08:47
11/02/23 08:47
Estimated Creat Clear 123 ml/min 11/02/23 08:47
Total Bilirubin 1.1 mg/dl (0.2-1.3) 10/28/23 12:14
AST 40 U/L (17-59) 10/28/23 12:14
ALT 44 U/L (0-50) 10/28/23 12:14
Alkaline Phosphatase 62 U/L (38-126) 10/28/23 12:14
Most recent labs reviewed.
Micro Results:
11/01/23 08:40 Blood Culture - Preliminary
Blood/Venous No Growth in 48 hours- Final report to follow
11/01/23 16:13 Wound Culture - Preliminary
Abscess S aureus-Methicillin Sensitive
Gram Stain - Preliminary
11/02/23 06:38 Blood Culture - Preliminary
Blood/Venous No Growth in 24 hours- Final report to follow
11/03/23 04:51 Blood Culture - Pending
Blood/Venous
11/01/23 16:13 Anaerobic Culture - Preliminary
Abscess Culture pending. Anaerobic cultures are examined after 3
days incubation. Additional information to follow.
10/29/23 14:54 Blood Culture - Preliminary
Blood/Venous S aureus-Methicillin Sensitive
Gram Stain - Preliminary
10/29/23 14:15 Blood Culture - Preliminary
Blood/Venous S aureus-Methicillin Sensitive
Gram Stain - Preliminary
10/28/23 16:10 Body Fluid Culture - Final
Joint Fluid No Growth After 72 Hours
Gram Stain - Final
10/28/23 14:18 Blood Culture - Final
Blood/Venous S aureus-Methicillin Sensitive
Gram Stain - Final
10/28/23 14:07 Blood Culture - Final
Blood/Venous S aureus-Methicillin Sensitive
Gram Stain - Final
Imaging:
10/31/2023 MRI cervical spine: Rim-enhancing fluid collection in the left anterior aspect of the spinal canal from C2 through C4 compatible with an epidural abscess measuring 0.7 x 1.5 x 4.4 cm (AP x TV x SI). Severe secondary spinal canal stenosis
centered at the C3-C4 level secondary to the epidural fluid collection and meningeal thickening and enhancement. Prevertebral rim-enhancing fluid collection anterior to the C3-C4 intervertebral disc space also compatible with an abscess measuring
0.7 x 1.8 x 1.8 cm. Paravertebral soft tissue edema and enhancement about the upper cervical spine, left greater than right. Developing abscess in the left posterior paravertebral soft tissues at C3-C4 measuring approximately 2.0 x 0.9 x 1.8 cm.
Probable contiguous phlegmon further medially. No bone marrow signal changes to suggest osteomyelitis. Please see full dictation for additional detail.
10/25/2023 CT chest/abdomen/pelvis: No evidence of thoracic aortic aneurysm/dissection and no evidence of abdominal aortic aneurysm/dissection. Prior cholecystectomy. No biliary tract dilatation. Sclerotic densities again seen in the left seventh
rib, right iliac bone and right sacrum correlating with known bony metastasis. Hepatomegaly. Urinary bladder significantly obscured. Colonic diverticulosis. Please see full dictation for additional detail.
[2023-11-03 11:48] LABS: Glucose - Point of Care 145 mg/dl (70-99)
[2023-11-03] MEDS: NOVOLOG FLEXPEN 12 UNITS SC ×2 (13:19→17:29)
[2023-11-03] MEDS: NOVOLOG FLEXPEN-LOW RESISTANCE SC ×2 (13:20→17:30)
[2023-11-03 15:00] VITALS: BP 115/67
[2023-11-03 15:20] VITALS: BP 102/73; PULSE 53; O2SAT 95
[2023-11-03] MEDS: ROXICODONE 10 MG PO ×2 (15:49→23:06)
[2023-11-03] MEDS: NORVASC 5 MG PO (15:50)
[2023-11-03] MEDS: LIPITOR 10 MG PO (15:52)
[2023-11-03] MEDS: LOVENOX 40 MG SC (15:53)
[2023-11-03 17:19] LABS: Glucose - Point of Care 136 mg/dl (70-99)
[2023-11-03] MEDS: FLUSH (NSS) 2 FLUSH IV (20:00)
[2023-11-03] MEDS: COLACE PO (20:08)
[2023-11-03] MEDS: SENOKOT PO (20:08)
[2023-11-03 21:31] LABS: Glucose - Point of Care 209 mg/dl (70-99)
[2023-11-03] MEDS: XALATAN OPHTHALMIC SOLUTION 1 DROP BOTH EYES (21:31)
[2023-11-03] MEDS: LANTUS 0.100000000000000006 UNITS SC (21:31)
[2023-11-03 23:05] VITALS: BP 124/56
[2023-11-04] MEDS: FLUSH (NSS) 2 FLUSH IV ×3 (00:17→12:35)
[2023-11-04] MEDS: DILAUDID 0.5 MG IV (00:18)
--- NOTE | 2023-11-04 01:17 | PTCARENOTE ---
Pt. with increasing pain starting during this shift. Multiple position changes in bed and in chair attempted along with scheduled and PRN medications - see MAR. At time of writing pt. is reporting his pain is 'better' and is able to rest comfortably
in bed. Will monitor.
[2023-11-04] MEDS: ANCEF 10 IV ×3 (04:34→20:34)
[2023-11-04] MEDS: TYLENOL 1000 MG PO ×3 (04:55→17:09)
[2023-11-04 05:10] LABS: % Basophils 0.4 % (0-2); % Eosinophils 1.4 % (0-6); % Lymphocytes 13.8 % (20.5-51.1); % Monocytes 5.7 % (1.7-9.3); % Neutrophils 75.7 % (42.2-75.2); Absolute Eosinophils 0.1 10^3/uL (0-0.7); Absolute Immature Granulocytes 0.3 10^3/uL (0-0.05); Absolute Lymphocytes 1.4 10^3/uL (1.2-3.4); Absolute Monocytes 0.6 10^3/uL (0.1-0.6); Absolute Neutrophils 7.8 10^3/uL (1.4-6.5); Hemoglobin 10.1 g/dL (13.0-18.0); Mean Corp Hgb Conc. 33.7 g/dL (33.0-37.0); Mean Corpuscular Hgb 29.9 pg (27.0-31.0); Mean Corpuscular Volume 88.8 fL (80.0-94.0); Mean Platelet Volume 9.7 fL (7.4-10.4); Nucleated Red Blood Cells % 0 % (-); Platelet Count 339 10^3/uL (130-400); Red Blood Cell Count 3.38 10^6/uL (4.70-6.10); Red Cell Dist. Width 13.7 % (11.5-14.5); White Blood Cell Count 10.3 10^3/uL (4.8-10.8)
[2023-11-04 05:30] LABS: Blood Urea Nitrogen 19 mg/dl (9-20); Calcium 8.8 mg/dl (8.4-10.2); Carbon Dioxide 30 mmol/L (22-30); Chloride 94 mmol/L (98-107); Estimated Creatinine Clearance 92 ml/min; Glucose 144 mg/dl (70-99); Potassium 3.6 mmol/L (3.5-5.1); Sodium 131 mmol/L (135-145); eGFR > 60.00
[2023-11-04 07:29] LABS: Glucose - Point of Care 148 mg/dl (70-99)
[2023-11-04 08:00] VITALS: BP 161/85
[2023-11-04] MEDS: COZAAR 100 MG PO (09:04)
[2023-11-04] MEDS: COLACE 100 MG PO ×2 (09:04→20:36)
[2023-11-04] MEDS: PROTONIX 40 MG PO (09:05)
[2023-11-04] MEDS: SENOKOT 17.1999999999999993 MG PO ×2 (09:05→20:36)
[2023-11-04] MEDS: FLOMAX 0.400000000000000022 MG PO ×2 (09:05→20:36)
[2023-11-04] MEDS: LOPID 600 MG PO ×2 (09:05→20:35)
[2023-11-04] MEDS: NOVOLOG FLEXPEN-LOW RESISTANCE SC (09:06)
[2023-11-04] MEDS: NOVOLOG FLEXPEN 12 UNITS SC ×3 (09:06→17:08)
[2023-11-04] MEDS: COSOPT EYE DROPS 1 DROP BOTH EYES ×2 (09:08→21:32)
--- NOTE | 2023-11-04 11:43 | W.PN.HOSP.TC ---
Today's Communication/Plan
-
Monitor vital signs see plan
Recent blood culture continues to be negative
ID to see today
Continue with antibiotics
Monitor hyponatremia
pt/ot
Assessment / Plan
Assessment / Plan
Gen-AAOx3, NAD, obese
HEENT-NC, AT, anicteric, clear oral mm
Neck-supple
CV-reg, no M, +S1/S2
Lungs-clear B/L
Abd-soft, NT, ND
Ext-no edema
Musculoskeletal-no cyanosis, clubbing
Skin-warm and dry, neck dressings intact with drain in place
Neuro-grossly non-focal
Psych-calm, cooperative
MSSA bacteremia/cervical epidural abscess -underwent successful cervical spine hemilaminectomy and abscess evacuation on October 31. Continue IV cefazolin per infectious disease. Blood cultures from November 01 negative so far. White blood cell count coming
down, afebrile.
ID following
Right shoulder pain status post IR aspiration on 10/27, rule out septic arthritis:
Follow-up cultures remains negative x 48 hours.
X-ray shoulder with possible bursitis
Seen by orthopedics and no further intervention planned
Hyponatremia -hydrochlorothiazide discontinued, would not resume on discharge. Sodium 131. Continue fluid restriction. 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
DM2 with hyperglycemia -hemoglobin A1c 7.5%. He was on metformin prior to admission. cw insulin,accuchecks
Hypokalemia -resolved.
Essential hypertension - Continue home antihypertensives, losartan, Norvasc. Hold HCTZ due to hyponatremia.
Hyperlipidemia -
Continue home statins, atorvastatin 10 mg p.o. nightly
Continue gemfibrozil 600 mg twice a day
BPH:
Continue Flomax 0.4 mg twice a day
Chronic normocytic anemia -hemoglobin stable so far.
History metastatic prostate cancer/bladder cancer:
Continue outpatient follow-up.
Obesity due to excess calories
DVT prophylaxis: Lovenox held in the setting of surgery
Full code
Dispo - will need SNF
Anticipated Discharge: Within 24 hours
Subjective/Interval History
-
Date of Service: November 04, 2023
denies pain
Objective Data
-
Labs:
Laboratory Results
11/04/23
04:38
WBC 10.3
Hgb 10.1 L
Hct 30.0 L
Plt Count 339
Sodium 131 L
Potassium 3.6
Chloride 94 L
Carbon Dioxide 30
BUN 19
Creatinine 0.8
Glucose 144 H
Calcium 8.8
Vital Signs:
Vital Signs
Temp Pulse Resp BP Pulse Ox
98.0 F 82 20 161/85 96
11/04/23 08:00 11/04/23 08:00 11/04/23 08:00 11/04/23 08:00 11/04/23 09:02
I&O
11/03/23 11/04/23 11/05/23
06:59 06:59 06:59
Intake Total 1680 / 1680 1200 / 1200
Output Total 70 / 70
Balance 1610 / 1610 1200 / 1200
--- NOTE | 2023-11-04 12:00 | W.PN.ID1 ---
Date of Service
Date of Service: November 04, 2023
Today's Communication
Continue abx.
Assessment / Plan
Staph aureus bacteremia
Cervical epidural abscess
S/p laminectomy and evacuation of abscess (11/01/23)
Leukocytosis
Encephalopathy
Hyponatremia
Elevated ESR
Elevated CRP
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
GERD
Hx Caldrea's esophagitis
HTN
Dyslipidemia
DM
Nephrolithiasis
Recommendations:
10/31 blood cultures neg. x 72 hours. Subsequent blood cultures NGTD.
10/27-10/28 MSSA bactermia
10/31 tissue culture S. aureus (MSSA)
Continue with cefazolin. Patient will need >=6 week course abx
PICC when blood cultures persistently clear
Monitor white count and temperature curve.
����������������������������������������������������������
Chief Complaint
-: Bacteremia and Other (Epidural abscess)
Subjective / Review of Systems
Review of Systems: No Fever and No Chills
Vital Signs / Physical Exam
Vital Signs
Vital Signs
Temp Pulse Resp BP Pulse Ox
98.0 F 82 20 161/85 96
11/04/23 08:00 11/04/23 08:00 11/04/23 08:00 11/04/23 08:00 11/04/23 09:02
Physical Exam
Constitutional: No Acute Distress, Comfortable, Chronically Ill and Non-toxic
Eyes: No Conjunctival Hemorrhage and Sclera Anicteric
Cardiovascular: S1/S2; Negative S3/S4 or Murmur
Pulmonary: Non Labored
Gastrointestinal: Soft and Non Tender
Wound: Other (C-spine incisional area dressed. No periwound erythema.)
Neurological: Awake and Alert
Psychological: Calm
Objective Data
Lab Data
Lab Results
11/04/23 04:38
11/04/23 04:38
Estimated Creat Clear 92 ml/min 11/04/23 04:38
Total Bilirubin 1.1 mg/dl (0.2-1.3) 10/28/23 12:14
AST 40 U/L (17-59) 10/28/23 12:14
ALT 44 U/L (0-50) 10/28/23 12:14
Alkaline Phosphatase 62 U/L (38-126) 10/28/23 12:14
Most recent labs reviewed.
Micro Results:
11/01/23 08:40 Blood Culture - Preliminary
Blood/Venous No Growth in 72 hours- Final report to follow
11/02/23 06:38 Blood Culture - Preliminary
Blood/Venous No Growth in 48 hours- Final report to follow
11/03/23 04:51 Blood Culture - Preliminary
Blood/Venous No Growth in 24 hours- Final report to follow
11/04/23 04:39 Blood Culture - Pending
Blood/Venous
11/01/23 16:13 Wound Culture - Preliminary
Abscess S aureus-Methicillin Sensitive
Gram Stain - Preliminary
11/01/23 16:13 Anaerobic Culture - Preliminary
Abscess Culture pending. Anaerobic cultures are examined after 3
days incubation. Additional information to follow.
10/29/23 14:54 Blood Culture - Preliminary
Blood/Venous S aureus-Methicillin Sensitive
Gram Stain - Preliminary
10/29/23 14:15 Blood Culture - Preliminary
Blood/Venous S aureus-Methicillin Sensitive
Gram Stain - Preliminary
10/28/23 16:10 Body Fluid Culture - Final
Joint Fluid No Growth After 72 Hours
Gram Stain - Final
10/28/23 14:18 Blood Culture - Final
Blood/Venous S aureus-Methicillin Sensitive
Gram Stain - Final
10/28/23 14:07 Blood Culture - Final
Blood/Venous S aureus-Methicillin Sensitive
Gram Stain - Final
Abscess Cult (C3-4 EPIDURAL SPACE) 11/03/23-910
1. S aureus-Methicillin Sensitive
M.I.C. RX
--------- ---
Amoxicillin/Potas. Clavulanate <=4/2 S
Ampicillin 8 R
Clindamycin <=0.5 R
Gentamicin <=4 S
Erythromycin >4 R
Levofloxacin <=1 S
Oxacillin <=0.25 S
Tetracycline <=4 S
Trimethoprim/Sulfamethoxazole <=0.5/9.5 S
Vancomycin 1 S
Imaging:
10/31/2023 MRI cervical spine: Rim-enhancing fluid collection in the left anterior aspect of the spinal canal from C2 through C4 compatible with an epidural abscess measuring 0.7 x 1.5 x 4.4 cm (AP x TV x SI). Severe secondary spinal canal stenosis
centered at the C3-C4 level secondary to the epidural fluid collection and meningeal thickening and enhancement. Prevertebral rim-enhancing fluid collection anterior to the C3-C4 intervertebral disc space also compatible with an abscess measuring
0.7 x 1.8 x 1.8 cm. Paravertebral soft tissue edema and enhancement about the upper cervical spine, left greater than right. Developing abscess in the left posterior paravertebral soft tissues at C3-C4 measuring approximately 2.0 x 0.9 x 1.8 cm.
Probable contiguous phlegmon further medially. No bone marrow signal changes to suggest osteomyelitis. Please see full dictation for additional detail.
10/25/2023 CT chest/abdomen/pelvis: No evidence of thoracic aortic aneurysm/dissection and no evidence of abdominal aortic aneurysm/dissection. Prior cholecystectomy. No biliary tract dilatation. Sclerotic densities again seen in the left seventh
rib, right iliac bone and right sacrum correlating with known bony metastasis. Hepatomegaly. Urinary bladder significantly obscured. Colonic diverticulosis. Please see full dictation for additional detail.
[2023-11-04 12:14] LABS: Glucose - Point of Care 156 mg/dl (70-99)
[2023-11-04] MEDS: NOVOLOG FLEXPEN-LOW RESISTANCE 1 UNITS SC ×2 (12:33→17:08)
[2023-11-04 15:45] VITALS: BP 121/80
--- NOTE | 2023-11-04 16:08 | CM ---
Reviewed the chart notes and spoke with the patient and his spouse at the bedside. IMM signed and placed on chart. PICC line placed today. CM continues to be available to patient/family and is monitoring medical plan for needs at discharge.
Plan: Discharge to SNF/rehab once bed found. Referrals sent with some responses. Once discharge confirmed will need to see which facilities have bed on that day and confirm with the patient's spouse placement.
[2023-11-04 17:06] LABS: Glucose - Point of Care 179 mg/dl (70-99)
[2023-11-04] MEDS: NORVASC 5 MG PO (17:08)
[2023-11-04] MEDS: LIPITOR 10 MG PO (17:09)
[2023-11-04] MEDS: LOVENOX 40 MG SC (17:09)
[2023-11-04] MEDS: XALATAN OPHTHALMIC SOLUTION 1 DROP BOTH EYES (21:33)
[2023-11-04 21:53] LABS: Glucose - Point of Care 194 mg/dl (70-99)
[2023-11-04] MEDS: LANTUS 0.100000000000000006 UNITS SC (22:26)
[2023-11-04] MEDS: ROXICODONE 5 MG PO (22:38)
[2023-11-04 23:09] VITALS: BP 150/81
[2023-11-04] MEDS: TYLENOL PO (23:59)
[2023-11-05] MEDS: ROXICODONE 5 MG PO ×2 (03:00→12:58)
[2023-11-05] MEDS: ANCEF 10 IV ×2 (03:00→12:01)
[2023-11-05] MEDS: TYLENOL 1000 MG PO ×2 (05:10→12:01)
[2023-11-05 05:43] LABS: % Basophils 0.5 % (0-2); % Eosinophils 1.1 % (0-6); % Immature Granulocytes 1.4 % (0-0.5); % Lymphocytes 12.2 % (20.5-51.1); % Monocytes 5.5 % (1.7-9.3); % Neutrophils 79.3 % (42.2-75.2); Absolute Basophils 0.1 10^3/uL (0-0.2); Absolute Eosinophils 0.1 10^3/uL (0-0.7); Absolute Immature Granulocytes 0.1 10^3/uL (0-0.05); Absolute Lymphocytes 1.2 10^3/uL (1.2-3.4); Absolute Monocytes 0.5 10^3/uL (0.1-0.6); Absolute Neutrophils 7.5 10^3/uL (1.4-6.5); Hematocrit 30.4 % (39.0-52.0); Hemoglobin 10.1 g/dL (13.0-18.0); Mean Corp Hgb Conc. 33.2 g/dL (33.0-37.0); Mean Corpuscular Hgb 30.1 pg (27.0-31.0); Mean Corpuscular Volume 90.7 fL (80.0-94.0); Mean Platelet Volume 9.9 fL (7.4-10.4); Nucleated Red Blood Cells % 0 % (-); Platelet Count 324 10^3/uL (130-400); Red Blood Cell Count 3.35 10^6/uL (4.70-6.10); Red Cell Dist. Width 13.7 % (11.5-14.5); White Blood Cell Count 9.5 10^3/uL (4.8-10.8)
[2023-11-05 06:23] LABS: Blood Urea Nitrogen 17 mg/dl (9-20); Calcium 8.9 mg/dl (8.4-10.2); Carbon Dioxide 29 mmol/L (22-30); Chloride 95 mmol/L (98-107); Estimated Creatinine Clearance 105 ml/min; Glucose 148 mg/dl (70-99); Potassium 3.8 mmol/L (3.5-5.1); Sodium 133 mmol/L (135-145); eGFR > 60.00
[2023-11-05 07:47] LABS: Glucose - Point of Care 171 mg/dl (70-99)
[2023-11-05 07:53] VITALS: BP 137/75
[2023-11-05] MEDS: PROTONIX 40 MG PO (08:14)
[2023-11-05] MEDS: COSOPT EYE DROPS 1 DROP BOTH EYES (08:14)
[2023-11-05] MEDS: LOPID 600 MG PO (08:14)
[2023-11-05] MEDS: SENOKOT 17.1999999999999993 MG PO (08:14)
[2023-11-05] MEDS: COLACE 100 MG PO (08:14)
[2023-11-05] MEDS: FLOMAX 0.400000000000000022 MG PO (08:14)
[2023-11-05] MEDS: COZAAR 100 MG PO (08:14)
[2023-11-05] MEDS: NOVOLOG FLEXPEN-LOW RESISTANCE 1 UNITS SC ×2 (08:15→12:01)
[2023-11-05] MEDS: NOVOLOG FLEXPEN 12 UNITS SC ×2 (08:15→12:01)
[2023-11-05 11:34] VITALS: BP 124/74; PULSE 95; O2SAT 96
--- NOTE | 2023-11-05 11:35 | W.PN.HOSP.TC ---
Addendum entered and electronically signed by Carrillo Wilhelm MD 11/05/23 12:02:
Time of discharge 38 minutes
Original Note:
Today's Communication/Plan
-
monitor vitals
see plan
cw IV abx
dc today to SNF if ok with ID
pain control
Assessment / Plan
Assessment / Plan
Gen-AAOx3, NAD, obese
HEENT-NC, AT, anicteric, clear oral mm
Neck-supple
CV-reg, no M, +S1/S2
Lungs-clear B/L
Abd-soft, NT, ND
Ext-no edema
Musculoskeletal-no cyanosis, clubbing
Skin-warm and dry, neck dressings intact with drain in place
Neuro-grossly non-focal
Psych-calm, cooperative
MSSA bacteremia/cervical epidural abscess -underwent successful cervical spine hemilaminectomy and abscess evacuation on October 31. Continue IV cefazolin per infectious disease. Blood cultures from November 01 negative so far. White blood cell count coming
down, afebrile.
ID following
now has PICC line; dc today if ok with ID
Right shoulder pain status post IR aspiration on 10/27, rule out septic arthritis:
Follow-up cultures remains negative x 48 hours.
X-ray shoulder with possible bursitis
Seen by orthopedics and no further intervention planned
Hyponatremia -hydrochlorothiazide discontinued, would not resume on discharge. Sodium 133. Continue fluid restriction. 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
DM2 with hyperglycemia -hemoglobin A1c 7.5%. He was on metformin prior to admission. cw insulin,accuchecks
Hypokalemia -resolved.
Essential hypertension - Continue home antihypertensives, losartan, Norvasc. Hold HCTZ due to hyponatremia.
Hyperlipidemia -
Continue home statins, atorvastatin 10 mg p.o. nightly
Continue gemfibrozil 600 mg twice a day
BPH:
Continue Flomax 0.4 mg twice a day
Chronic normocytic anemia -hemoglobin stable so far.
History metastatic prostate cancer/bladder cancer:
Continue outpatient follow-up.
Obesity due to excess calories
DVT prophylaxis: Lovenox
Full code
Dispo - will need SNF
Anticipated Discharge: Today
Subjective/Interval History
-
Date of Service: November 05, 2023
denies nausea
Objective Data
-
Labs:
Laboratory Results
11/05/23
05:05
WBC 9.5
Hgb 10.1 L
Hct 30.4 L
Plt Count 324
Sodium 133 L
Potassium 3.8
Chloride 95 L
Carbon Dioxide 29
BUN 17
Creatinine 0.7
Glucose 148 H
Calcium 8.9
Vital Signs:
Vital Signs
Temp Pulse Resp BP Pulse Ox
98.1 F 93 18 137/75 95
11/05/23 07:53 11/05/23 07:53 11/05/23 07:53 11/05/23 07:53 11/05/23 08:00
I&O
11/04/23 11/05/23 11/06/23
06:59 06:59 06:59
Intake Total 1200 / 1200 1020 / 1020
Balance 1200 / 1200 1020 / 1020
[2023-11-05 11:40] LABS: Glucose - Point of Care 160 mg/dl (70-99)
--- NOTE | 2023-11-05 12:02 | W.DCSUMMARY ---
Discharge Summary
Discharge Data
Date of Admission: 10/28/23
Date of Discharge: 11/05/23
-
Pending Results: No
Hospital Course
83-year-old male with past medical history of diabetes mellitus, essential hypertension, hyperlipidemia, BPH, anemia, metastatic prostate cancer/bladder cancer, obesity came to the hospital with MSSA bacteremia secondary to cervical epidural
abscess. Patient was seen by neurosurgery and underwent cervical spine hemilaminectomy and abscess evacuation. Patient was continued with IV antibiotics throughout hospitalization. Patient latest blood culture continue to be negative prior to
discharge. Patient was seen by infectious disease throughout hospitalization. On discharge patient was put on IV Ancef. On this hospitalization he also had right shoulder pain for which she was seen by orthopedics and had IR guided aspiration
which did not show any signs of septic arthritis. X-ray was consistent with possible bursitis. Patient symptoms over time started to improve. He was seen by orthopedics on this hospitalization. He also had hyponatremia for which his
hydrochlorothiazide was discontinued. Patient was also evaluated by physical therapy who recommended SNF. Once his symptoms were improving, he was then discharged to SNF with instructions to follow-up with all his physicians outpatient.
Discharge Plan
-
Patient Disposition: Retirement/SNF
Discharge Diagnosis/Procedures: Methicillin sensitive Staph aureus bacteremia secondary to cervical epidural abscess
Right shoulder possible bursitis
Hyponatremia
Additional Diets: 40OZ fluid restriction
Activity: As tolerated
Driving Restrictions: As prior to admission
Bathing Restrictions: None
Referrals:
Parish Issa DO [Active] -
Dewayne Gallo DO [Active] -
Dirk Moseley DO [Active] -
Marvin Mcgraw MD [Family Provider] - in less than 1 week
Prescriptions:
New
polyethylene glycol 3350 [HealthyLax] 17 gram Powder In Packet
17 g PO DAILYPRN PRN (Reason: constipation) Qty: 0 0RF
cefazolin 10 gram Recon Soln
2 g IV Q8H Qty: 0 0RF
docusate sodium 100 mg Capsule
100 mg PO BID Qty: 0 0RF
losartan 100 mg Tablet
100 mg PO DAILY Qty: 0 0RF
oxycodone 5 mg Tablet
5 mg PO Q4HPRN PRN (Reason: moderate to severe pain) Qty: 12 0RF
acetaminophen [Tylenol Extra Strength] 500 mg Tablet
1,000 mg PO Q8H Qty: 0 0RF
Continued
gemfibrozil 600 MG tablet
600 mg PO BID
ascorbic acid (vitamin C) [Vitamin C] 500 MG tablet
500 mg PO BID
tamsulosin 0.4 MG capsule
0.4 mg PO BID
pantoprazole 40 MG tablet,delayed release (DR/EC)
40 mg PO DAILY
simvastatin 20 MG tablet
20 mg PO QPM
aspirin 81 MG tablet,delayed release (DR/EC)
81 mg PO BID
polyethylene glycol 3350 17 GRAMS powder in packet
17 grams PO DAILYPRN PRN (Reason: Constipation)
omega 2-xih-zwc-fish oil [Fish Oil] 1,200 (144-216) mg Capsule
1 cap PO HS
latanoprost 0.005 % Drops
1 drp BOTH EYES HS
amlodipine 5 mg Tablet
5 mg PO QPM
dorzolamide-timolol 22.3-6.8 mg/mL drops
1 drp BOTH EYES BID
metformin 500 mg Tablet Extended Release 24 Hr
500 mg PO BID
coenzyme Q10 [CoQ-10] 100 mg Capsule
100 mg PO QPM
cholecalciferol (vitamin D3) 125 mcg (5,000 unit) Tablet
125 mcg PO BID
Discontinued
losartan-hydrochlorothiazide 100-25 mg Tablet
1 tab PO DAILY
acetaminophen [Tylenol] 325 mg Tablet
325 - 650 mg PO QIDPRN PRN (Reason: mild pain)
prednisone 20 mg Tablet
20 mg PO DAILY
Patient Comments:
10/28/2023, filled on 10/24/2023 for 7 day supply.
tramadol 50 mg tablet
50 mg PO Q6H PRN (Reason: severe pain)
Patient Comments:
10/28/2023, filled on 10/25/2023 for 14 tablets per PDMP.
Discharge Orders:
Discharge Patient (As Directed); Ordered 11/05/23
Ordered By: Carrillo Wilhelm
Discharge Date and Time
Discharge Date/Time: 11/05/23 14:21
Print Language: YORUBA
--- NOTE | 2023-11-05 12:13 | CM ---
Addendum entered by Ainsley Parker RN 11/05/23 13:47:
IV abx script , PICC line info,and CXR , negative Covid results faxed to [facility].
Original Note:
MD entered order for discharge.
Spoke with Carlene at [facility] bed ready.
Carlene requested Covid test today MD and RN aware .
Requested IV antibiotics script from ID.
PICC info and CXR faxed to [facility] .
Spoke with son and Kelsy [phone] reviewed above she agrees with dc to .
She requested Ambulance Medical nec form to floor.
[facility]
report [phone]
fax [phone]
PLAN To [facility] after Covid resulted and ambulance set up.
[2023-11-05 12:46] LABS: COVID-19 Antigen Negative (Negative)
[2023-11-05 13:45] VITALS: BP 116/63
--- NOTE | 2023-11-05 14:24 | W.PN.ID1 ---
Date of Service
Date of Service: November 05, 2023
Today's Communication
Continue antibiotics.
Assessment / Plan
Staph aureus bacteremia
Cervical epidural abscess
S/p laminectomy and evacuation of abscess (11/01/23)
Leukocytosis
Encephalopathy
Hyponatremia
Elevated ESR
Elevated CRP
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
GERD
Hx Caldera's esophagitis
HTN
Dyslipidemia
DM
Nephrolithiasis
Recommendations:
10/31 blood cultures neg. x 72 hours. Subsequent blood cultures NGTD.
10/27-10/28 MSSA bactermia
10/31 tissue culture S. aureus (MSSA)
Continue with cefazolin. Patient will need >=6 week course abx
PICC placed. IV infusion sheet placed on paper chart, and given to case management.
Follow weekly CBC, BMP, ESR, CRP and LFTs. Have ordered labs to be faxed to my office.
����������������������������������������������������������
Chief Complaint
-: Bacteremia and Other (Epidural abscess)
Subjective / Review of Systems
Patient seen and examined. Still with some right shoulder weakness.
Review of Systems: No Fever and No Chills
Vital Signs / Physical Exam
Vital Signs
Vital Signs
Temp Pulse Resp BP Pulse Ox
98.2 F 92 18 116/63 95
11/05/23 13:45 11/05/23 13:45 11/05/23 13:45 11/05/23 13:45 11/05/23 13:45
Physical Exam
Constitutional: No Acute Distress, Comfortable and Non-toxic
Eyes: No Conjunctival Hemorrhage and Sclera Anicteric
Cardiovascular: S1/S2; Negative S3/S4
Pulmonary: Non Labored
Gastrointestinal: Soft and Non Tender
Wound: Other (Cervical wound dressed. No strikethrough.)
Neurological: Awake and Alert
Psychological: Calm
Objective Data
Lab Data
Lab Results
11/05/23 05:05
11/05/23 05:05
Estimated Creat Clear 105 ml/min 11/05/23 05:05
Total Bilirubin 1.1 mg/dl (0.2-1.3) 10/28/23 12:14
AST 40 U/L (17-59) 10/28/23 12:14
ALT 44 U/L (0-50) 10/28/23 12:14
Alkaline Phosphatase 62 U/L (38-126) 10/28/23 12:14
Most recent labs reviewed.
Micro Results:
10/29/23 14:54 Blood Culture - Final
Blood/Venous S aureus-Methicillin Sensitive
Gram Stain - Final
10/29/23 14:15 Blood Culture - Final
Blood/Venous S aureus-Methicillin Sensitive
Gram Stain - Final
11/05/23 05:05 Blood Culture - Pending
Blood/Venous
11/01/23 08:40 Blood Culture - Preliminary
Blood/Venous No Growth in 4 days- Final report to follow
11/01/23 16:13 Anaerobic Culture - Preliminary
Abscess Culture pending. Anaerobic cultures are examined after 3
days incubation. Additional information to follow.
11/02/23 06:38 Blood Culture - Preliminary
Blood/Venous No Growth in 72 hours- Final report to follow
11/03/23 04:51 Blood Culture - Preliminary
Blood/Venous No Growth in 48 hours- Final report to follow
11/04/23 04:39 Blood Culture - Preliminary
Blood/Venous No Growth in 24 hours- Final report to follow
11/01/23 16:13 Wound Culture - Preliminary
Abscess S aureus-Methicillin Sensitive
Gram Stain - Preliminary
10/28/23 16:10 Body Fluid Culture - Final
Joint Fluid No Growth After 72 Hours
Gram Stain - Final
10/28/23 14:18 Blood Culture - Final
Blood/Venous S aureus-Methicillin Sensitive
Gram Stain - Final
10/28/23 14:07 Blood Culture - Final
Blood/Venous S aureus-Methicillin Sensitive
Gram Stain - Final
Abscess Cult (C3-4 EPIDURAL SPACE) 11/03/23-910
1. S aureus-Methicillin Sensitive
M.I.C. RX
--------- ---
Amoxicillin/Potas. Clavulanate <=4/2 S
Ampicillin 8 R
Clindamycin <=0.5 R
Gentamicin <=4 S
Erythromycin >4 R
Levofloxacin <=1 S
Oxacillin <=0.25 S
Tetracycline <=4 S
Trimethoprim/Sulfamethoxazole <=0.5/9.5 S
Vancomycin 1 S
Imaging:
10/31/2023 MRI cervical spine: Rim-enhancing fluid collection in the left anterior aspect of the spinal canal from C2 through C4 compatible with an epidural abscess measuring 0.7 x 1.5 x 4.4 cm (AP x TV x SI). Severe secondary spinal canal stenosis
centered at the C3-C4 level secondary to the epidural fluid collection and meningeal thickening and enhancement. Prevertebral rim-enhancing fluid collection anterior to the C3-C4 intervertebral disc space also compatible with an abscess measuring
0.7 x 1.8 x 1.8 cm. Paravertebral soft tissue edema and enhancement about the upper cervical spine, left greater than right. Developing abscess in the left posterior paravertebral soft tissues at C3-C4 measuring approximately 2.0 x 0.9 x 1.8 cm.
Probable contiguous phlegmon further medially. No bone marrow signal changes to suggest osteomyelitis. Please see full dictation for additional detail.
10/25/2023 CT chest/abdomen/pelvis: No evidence of thoracic aortic aneurysm/dissection and no evidence of abdominal aortic aneurysm/dissection. Prior cholecystectomy. No biliary tract dilatation. Sclerotic densities again seen in the left seventh
rib, right iliac bone and right sacrum correlating with known bony metastasis. Hepatomegaly. Urinary bladder significantly obscured. Colonic diverticulosis. Please see full dictation for additional detail.
== END 2023-11-05 14:21 | DRG 29 ==
LOC: 2 SOUTH 15:38
PROVIDERS: Hospitalist; Physician Assistant; Radiology Vascular & Interventional Radiology; Registered Nurse; ADMITTING PHYSICIAN Hospitalist; ATTENDING PHYSICIAN Internal Medicine; CONSULT PHYSICIAN Neurological Surgery; CONSULT PHYSICIAN Orthopaedic Surgery; EMERGENCY PHYSICIAN Emergency Medicine; FAMILY PHYSICIAN Family Medicine; OTHER PHYSICIAN Internal Medicine Infectious Disease
PROC: 0R9J3ZX Drainage of Right Shoulder Joint, Percutaneous Approach, Diagnostic (ICD-10-PCS; 2023-10-28)
PROC: 00NW0ZZ Release Cervical Spinal Cord, Open Approach (ICD-10-PCS; 2023-11-01)
PROC: 009U0ZZ Drainage of Spinal Canal, Open Approach (ICD-10-PCS; 2023-11-01)
DX: G06.1 Intraspinal abscess and granuloma (principal); E87.1 Hypo-osmolality and hyponatremia; R78.81 Bacteremia; M00.9 Pyogenic arthritis, unspecified; Z87.891 Personal history of nicotine dependence
CPT/HCPCS: 93308; 20610; 71045; 72040; 72156; 72157; 72158; 73030; 76000; 77002; 80048; 80053; 81003; 81015; 82533; 82962; 83036; 83930; 83935; 84300; 84443; 85025; 85027; 87015; 87040; 87070; 87075; 87147; 87150; 87186; 87205; 87811; 93005; 93321; 93325; 96360; 97110; 97116; 97163; 97164; 97167; 97530; 97535; 99285; A9575

== ENCOUNTER 2024-01-14 11:40 | Emergency (ER) | payer MEDICARE, BC, SELFPAY ==
[2024-01-14 11:47] VITALS: BP 101/64
--- NOTE | 2024-01-14 12:29 | ED.GENMED ---
History of Present Illness
General
Chief Complaint: Post Operative Problem(s)
Time Seen by Provider: 01/14/24 12:29
History of Present Illness
History of Present Illness:
HPI: The patient presents with ongoing neck pain since he was found to have an epidural abscess managed operatively this past October. More recently has been having upper extremity numbness and heaviness that has been present but worsening since the
procedure back in October. He has not had fevers. The pain is more so on the left side and has limited range of motion with cervical spine rotation to the left
EXAM:
GENERAL: Well appearing in minimal distress
NECK: The patient is using a soft pillow behind his neck and has decreased active range of motion into rotation to the left
HEENT: Moist oral mucosa
CARDIOVASCULAR: No murmurs, normal heart rate, regular rhythm, No chest wall tenderness
PULMONARY: No respiratory distress, breath sounds are clear and equal
ABDOMEN: Soft with no peritoneal signs, no tenderness
NEUROLOGIC: Excellent strength all extremities, no coordination deficits, borderline sensory deficits to the distal upper extremities
PSYCHIATRIC: Appropriate mental status, normal insight and judgement
EXTREMITIES: Nontender, no edema, moves all extremities equally
SKIN: No rash, no lesions
TIME OF INITIAL ENCOUNTER: 12:35 PM
NUMBER AND COMPLEXITY OF PROBLEMS ADDRESSED AT THE ENCOUNTER
� Chronic conditions affecting care: Diabetes, high blood pressure, hyperlipidemia, metastatic prostate/bladder cancer, obesity, and thousand 24 had MSSA bacteremia secondary to cervical epidural abscess managed operatively
� Acute Exacerbation and/or Progression of Chronic Illness: This is a subacute but worsening problem
� Differential Diagnosis includes: Recurrence of cervical epidural abscess, muscle strain, cervical muscle spasm
AMOUNT AND/OR COMPLEXITY OF DATA TO BE REVIEWED AND ANALYZED
� I performed an independent evaluation of and my interpretation is:
EKG:
CT:
X-rays:
Laboratory Studies: White count 7.1, hemoglobin 10.5, chemistries relatively unremarkable, lactic 1.5
Other: I personally viewed MRI as well as the report by radiologist
� Review of other/old records: I reviewed discharge summary from this past October which indicates that the patient had cervical spine hemilaminectomy and abscess evacuation and was also given IV Ancef.
� Clinical information was obtained by an independent historian: I spoke to the at bedside
� Prescriptions/Medications Considered but not given:
� Further testing considered but not performed:
RISK OF COMPLICATIONS AND/OR MORBIDITY OR MORTALITY OF PATIENT MANAGEMENT
� Social determinants of health affecting care: Lives at home
� Discussion with other providers: Discussed with radiologist regarding need for MRI; discussed case with Dr. Beltre at 4:27 PM�recommends transfer to [facility] given the location of concern on the cervical spine MRI. I
spoke to Dr. Carcamo -crop research scientist at [facility] who accepts to his service.
� Escalation of care including admission/observation vs risk of discharge considered: Family very concerned that the patient's symptoms went without diagnosis based on lab work, x-rays, CT initially now has same symptoms. Will
try to obtain MRI today. Due to patient's reported pain, Dilaudid 0.5 mg has been ordered IV.
Past History
Past History
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
chronic anemia, obstructive sleep apnea)
ED Past Surgical History: Cholecystectomy, Orthopedic, Tonsilectomy and Other (Hernia repair)
Social History
Tobacco: Former smoker
Alcohol: Occasional
Personal:
Living: with family
Family History
Family History: CAD and Other (Family history of hypertriglyceridemia and coronary artery disease); Negative Diabetes, Hypertension, Asthma or Cancer
Phy Exam
Physical Exam
Physical Exam:
See HPI
Course
Orders/Labs/Results
Orders:
Orders
01/14/24 12:40
MR Cervical Spine Without & W Urgent
Comment:
Reason For Exam: worsening neck pain similar to epidural abscess
Recent pill cam endoscopy?: No
01/14/24 12:57
Basic Metabolic Panel Urgent
Complete Blood Count/With Diff Urgent
Lactic Acid Q4H
Comment: CANCEL 2nd LACTIC ACID IF 1st LACTIC ACID IS LESS THAN 2
Blood Culture Urgent
SHEY Source: Blood/Venous
Specimen Description:
01/14/24 13:24
HYDROmorphone [Dilaudid] 0.5 mg IV NOW STA
Ondansetron Injectable [Zofran] 4 mg IV NOW STA
01/14/24 16:45
Lactic Acid Q4H
Comment: CANCEL 2nd LACTIC ACID IF 1st LACTIC ACID IS LESS THAN 2
Abnormal Lab Results
01/14/24
12:57
RBC 3.57 L 10^6/uL
(4.70-6.10)
Hgb 10.5 L g/dL
(13.0-18.0)
Hct 30.6 L %
(39.0-52.0)
Abs Immat Gran (auto) 0.1 H 10^3/uL
(0-0.05)
Absolute Lymphs (auto) 0.9 L 10^3/uL
(1.2-3.4)
Immature Gran % 0.7 H %
(0-0.5)
Neutrophils % 78.5 H %
(42.2-75.2)
Lymphocytes % 12.6 L %
(20.5-51.1)
Sodium 133 L mmol/L
(135-145)
Chloride 95 L mmol/L
(98-107)
BUN 21 H mg/dl
(9-20)
Glucose 160 H mg/dl
(70-99)
01/14/24 12:57
01/14/24 12:57
Vital Signs
Initial and Last Documented VS:
Initial Vital Signs
Temp Pulse Resp BP Pulse Ox
98.7 F 58 20 101/64 96
01/14/24 11:47 01/14/24 11:47 01/14/24 11:47 01/14/24 11:47 01/14/24 11:47
Last Documented Vital Signs
Temp Pulse Resp BP Pulse Ox
98.7 F 87 19 171/83 98
01/14/24 11:47 01/14/24 17:07 01/14/24 17:07 01/14/24 17:07 01/14/24 17:07
*Critical Care Note
Total Time (30-74mins, 75-104mins- exclusive of procedures): Not Applicable
ED Attending Note
-
Portions of this chart may have been created with voice recognition software.� Occasional wrong word or��sound alike� substitutions may have occurred due to the inherent limitations of voice recognition software.
Discharge Plan
Departure
Patient Disposition: Acute Care Hospital
Date of Disposition: 01/14/24
Time of Disposition: 16:51
Discharge Problem:
Acute osteomyelitis of cervical spine
Prescriptions:
No Action
gemfibrozil 600 MG tablet
600 mg PO BID
tamsulosin 0.4 MG capsule
0.4 mg PO BID
pantoprazole 40 MG tablet,delayed release (DR/EC)
40 mg PO DAILY
simvastatin 20 MG tablet
20 mg PO QPM
aspirin 81 MG tablet,delayed release (DR/EC)
81 mg PO BID
omega 1-yqk-vhm-fish oil [Fish Oil] 1,200 (144-216) mg Capsule
1 cap PO BID
latanoprost 0.005 % Drops
1 drp BOTH EYES HS
amlodipine 5 mg Tablet
5 mg PO QPM
dorzolamide-timolol 22.3-6.8 mg/mL drops
1 drp BOTH EYES DAILY
metformin 500 mg Tablet Extended Release 24 Hr
500 mg PO BID
coenzyme Q10 [CoQ-10] 100 mg Capsule
100 mg PO QPM
acetaminophen [Tylenol Extra Strength] 500 mg Tablet
1,000 mg PO Q8H Qty: 0 0RF
tramadol 50 mg Tablet
50 mg PO Q4HPRN PRN (Reason: severe pain)
ibuprofen [Advil] 200 mg Tablet
200 mg PO BIDPRN PRN (Reason: mild pain)
polyethylene glycol 3350 [HealthyLax] 17 gram powder in packet
17 g PO DAILY
losartan 100 mg Tablet
100 mg PO DAILY
Referrals:
Marvin Mcgraw MD [Family Provider] -
Hospital Transfer
Other hospital: [facility]
I certify that the patient requires transfer: Yes
Discussed case with accepting physician: Dr. Carcamo accepting; Dr. Beltre consult
Reason for transfer: higher level of care
Interventions
Interventions:
*Risk Screen - Suicide Last Done: 01/14/24 11:47
*General Assessment Last Done: 01/14/24 12:28
*Neglect/Abuse Screening Last Done: 01/14/24 11:47
ED- Fall Risk Assessment Last Done: 01/14/24 12:28
*ED COVID-19 Vaccine History Last Done: 01/14/24 12:28
ED-Musculoskeletal Assessment Last Done: 01/14/24 12:28
ED-Skin Assessment Last Done: 01/14/24 17:11
Discharge Date and Time
Print Language: LITHUANIAN
[2024-01-14 13:23] VITALS: BP 122/70
[2024-01-14 13:23] LABS: % Basophils 0.7 % (0-2); % Immature Granulocytes 0.7 % (0-0.5); % Lymphocytes 12.6 % (20.5-51.1); % Monocytes 6.5 % (1.7-9.3); % Neutrophils 78.5 % (42.2-75.2); Absolute Basophils 0.1 10^3/uL (0-0.2); Absolute Eosinophils 0.1 10^3/uL (0-0.7); Absolute Immature Granulocytes 0.1 10^3/uL (0-0.05); Absolute Lymphocytes 0.9 10^3/uL (1.2-3.4); Absolute Monocytes 0.5 10^3/uL (0.1-0.6); Absolute Neutrophils 5.6 10^3/uL (1.4-6.5); Hematocrit 30.6 % (39.0-52.0); Hemoglobin 10.5 g/dL (13.0-18.0); Mean Corp Hgb Conc. 34.3 g/dL (33.0-37.0); Mean Corpuscular Hgb 29.4 pg (27.0-31.0); Mean Corpuscular Volume 85.7 fL (80.0-94.0); Mean Platelet Volume 9.9 fL (7.4-10.4); Nucleated Red Blood Cells % 0 % (-); Platelet Count 273 10^3/uL (130-400); Red Blood Cell Count 3.57 10^6/uL (4.70-6.10); Red Cell Dist. Width 14.2 % (11.5-14.5); White Blood Cell Count 7.1 10^3/uL (4.8-10.8)
[2024-01-14] MEDS: ZOFRAN 4 MG IV (13:28)
[2024-01-14] MEDS: DILAUDID 0.5 MG IV ×2 (13:28→19:13)
[2024-01-14 13:37] LABS: Blood Urea Nitrogen 21 mg/dl (9-20); Calcium 9.6 mg/dl (8.4-10.2); Carbon Dioxide 28 mmol/L (22-30); Chloride 95 mmol/L (98-107); Glucose 160 mg/dl (70-99); Potassium 4.2 mmol/L (3.5-5.1); Sodium 133 mmol/L (135-145); eGFR > 60.00
[2024-01-14 13:58] LABS: Lactic Acid 1.5 mmol/L (0.7-2.0)
[2024-01-14 14:00] VITALS: BP 114/68
[2024-01-14 17:07] VITALS: BP 171/83
[2024-01-14 19:00] VITALS: BP 173/82
== END 2024-01-14 19:18 | disposition short-term general hospital (02) ==
LOC: EMR 11:40
PROVIDERS: EMERGENCY PHYSICIAN Emergency Medicine; FAMILY PHYSICIAN Family Medicine
DX: M46.22 Osteomyelitis of vertebra, cervical region (principal); M54.2 Cervicalgia; R20.0 Anesthesia of skin; E11.9 Type 2 diabetes mellitus without complications; I10 Essential (primary) hypertension; E78.00 Pure hypercholesterolemia, unspecified; G47.33 Obstructive sleep apnea (adult) (pediatric); C61 Malignant neoplasm of prostate; C79.51 Secondary malignant neoplasm of bone; Z85.51 Personal history of malignant neoplasm of bladder; K21.9 Gastro-esophageal reflux disease without esophagitis; K22.70 Barrett's esophagus without dysplasia; K57.90 Diverticulosis of intestine, part unspecified, without perforation or abscess without bleeding; D64.9 Anemia, unspecified; H40.9 Unspecified glaucoma; Z98.890 Other specified postprocedural states; Z87.442 Personal history of urinary calculi; Z87.891 Personal history of nicotine dependence; Z90.49 Acquired absence of other specified parts of digestive tract
CPT/HCPCS: 99285; 96374; 96375; 96376; 72156; 80048; 83605; 85025; 87040; A9575

== ENCOUNTER → 2024-03-13 08:52 | Outpatient (REF) | payer MEDICARE, BC, SELFPAY ==
[2024-03-13 10:06] LABS: Erythrocyte Sed Rate 25 mm/hour (0-20)
[2024-03-13 10:09] LABS: ALT (SGPT) 11 U/L (0-50); AST (SGOT) 21 U/L (17-59); Albumin 4.6 g/dl (3.5-5.0); Alkaline Phosphatase 44 U/L (38-126); Blood Urea Nitrogen 28 mg/dl (9-20); Calcium 9.9 mg/dl (8.4-10.2); Carbon Dioxide 29 mmol/L (22-30); Chloride 99 mmol/L (98-107); Glucose 127 mg/dl (70-99); HDL Cholesterol 50 mg/dl; LDL Cholesterol, Calculated 120 mg/dl; Potassium 4.4 mmol/L (3.5-5.1); Sodium 141 mmol/L (135-145); Total Bilirubin 0.5 mg/dl (0.2-1.3); Total Cholesterol 225 mg/dl (50-199); Total Protein 6.8 g/dl (6.3-8.2); Triglyceride 278 mg/dl (10-149); Very Low Density Lipoprotein 55 mg/dl (0-30); eGFR > 60.00
[2024-03-13 10:13] LABS: C-Reactive Protein < 5.00 mg/L (0.0-10.00)
== END ==
LOC: REG 08:52
PROVIDERS: ATTENDING PHYSICIAN Family Medicine; FAMILY PHYSICIAN Internal Medicine Infectious Disease
DX: E11.40 Type 2 diabetes mellitus with diabetic neuropathy, unspecified (principal); E78.2 Mixed hyperlipidemia; M86.9 Osteomyelitis, unspecified
CPT/HCPCS: 36415; 80053; 80061; 83036; 85652; 86140

== ENCOUNTER 2024-03-27 13:52 | Outpatient (RCR) | payer MEDICARE, BC, SELFPAY | END 2024-03-27 23:59 | disposition home or self-care (01) | LOC: RPT 13:52 | PROVIDERS: ATTENDING PHYSICIAN Neurological Surgery; FAMILY PHYSICIAN Family Medicine | DX: M48.02 Spinal stenosis, cervical region (principal); M86.9 Osteomyelitis, unspecified; Z73.6 Limitation of activities due to disability; M62.81 Muscle weakness (generalized) | CPT/HCPCS: 97110; 97163; 97530 ==

== ENCOUNTER → 2024-04-16 15:39 | Outpatient (REF) | payer MEDICARE, BC, SELFPAY ==
[2024-04-16 16:59] LABS: Erythrocyte Sed Rate 31 mm/hour (0-20)
[2024-04-16 17:11] LABS: C-Reactive Protein < 5.00 mg/L (0.0-10.00)
== END ==
LOC: REG 15:39
PROVIDERS: ATTENDING PHYSICIAN Internal Medicine Infectious Disease; FAMILY PHYSICIAN Family Medicine
DX: M86.9 Osteomyelitis, unspecified (principal)
CPT/HCPCS: 36415; 85652; 86140

== ENCOUNTER 2024-04-30 13:56 | Outpatient (RCR) | payer MEDICARE, BC, SELFPAY | END 2024-04-30 23:59 | disposition home or self-care (01) | LOC: RPT 13:56 | PROVIDERS: ATTENDING PHYSICIAN Neurological Surgery; FAMILY PHYSICIAN Family Medicine | DX: Z47.89 Encounter for other orthopedic aftercare (principal); M48.02 Spinal stenosis, cervical region; Z73.6 Limitation of activities due to disability; M62.81 Muscle weakness (generalized); M86.9 Osteomyelitis, unspecified | CPT/HCPCS: 97110; 97530 ==

== ENCOUNTER → 2024-04-30 15:37 | Outpatient (REF) | payer MEDICARE, BC, SELFPAY ==
[2024-04-30 18:17] LABS: PSA, Total - Diagnostic 0.31 ng/ml (0.0-4.0)
== END ==
LOC: REG 15:37
PROVIDERS: ATTENDING PHYSICIAN Specialist; FAMILY PHYSICIAN Family Medicine
DX: C61 Malignant neoplasm of prostate (principal)
CPT/HCPCS: 36415; 84153

== ENCOUNTER 2024-05-21 14:04 | Outpatient (RCR) | payer MEDICARE, BC, SELFPAY | END 2024-05-21 23:59 | disposition home or self-care (01) | LOC: RPT 14:04 | PROVIDERS: ATTENDING PHYSICIAN Neurological Surgery; FAMILY PHYSICIAN Family Medicine | DX: M48.02 Spinal stenosis, cervical region (principal); M86.9 Osteomyelitis, unspecified; Z73.6 Limitation of activities due to disability; M62.81 Muscle weakness (generalized) | CPT/HCPCS: 97110 ==

== ENCOUNTER → 2024-06-09 07:14 | Outpatient (REF) | payer MEDICARE, BC, SELFPAY ==
[2024-06-09 08:44] LABS: C-Reactive Protein < 5.00 mg/L (0.0-10.00)
[2024-06-09 08:49] LABS: Erythrocyte Sed Rate 21 mm/hour (0-20)
== END ==
LOC: REG 07:14
PROVIDERS: ATTENDING PHYSICIAN Internal Medicine Infectious Disease; FAMILY PHYSICIAN Family Medicine
DX: M86.9 Osteomyelitis, unspecified (principal)
CPT/HCPCS: 36415; 85652; 86140

== ENCOUNTER 2024-06-29 13:00 | Outpatient (RCR) | payer MEDICARE, BC, SELFPAY | END 2024-06-29 23:59 | disposition home or self-care (01) | LOC: RPT 13:00 | PROVIDERS: ATTENDING PHYSICIAN Neurological Surgery; FAMILY PHYSICIAN Family Medicine | DX: M48.02 Spinal stenosis, cervical region (principal); M86.9 Osteomyelitis, unspecified; Z73.6 Limitation of activities due to disability; M62.81 Muscle weakness (generalized) | CPT/HCPCS: 97110; 97112 ==

== ENCOUNTER 2024-07-06 13:10 | Outpatient (RCR) | payer MEDICARE, BC, SELFPAY | END 2024-07-06 23:59 | disposition home or self-care (01) | LOC: RPT 13:10 | PROVIDERS: ATTENDING PHYSICIAN Neurological Surgery; FAMILY PHYSICIAN Family Medicine | DX: M48.02 Spinal stenosis, cervical region (principal); M86.9 Osteomyelitis, unspecified; Z73.6 Limitation of activities due to disability; M62.81 Muscle weakness (generalized); M43.22 Fusion of spine, cervical region | CPT/HCPCS: 97110; 97112 ==

== ENCOUNTER → 2024-07-10 10:15 | Outpatient (REF) | payer MEDICARE, BC, SELFPAY ==
[2024-07-10 12:04] LABS: % Basophils 1.1 % (0-2); % Eosinophils 3.1 % (0-6); % Immature Granulocytes 0.6 % (0-0.5); % Lymphocytes 17.2 % (20.5-51.1); % Monocytes 7.4 % (1.7-9.3); % Neutrophils 70.6 % (42.2-75.2); Absolute Basophils 0.1 10^3/uL (0-0.2); Absolute Eosinophils 0.2 10^3/uL (0-0.7); Absolute Lymphocytes 1.1 10^3/uL (1.2-3.4); Absolute Monocytes 0.5 10^3/uL (0.1-0.6); Absolute Neutrophils 4.4 10^3/uL (1.4-6.5); Hematocrit 31.9 % (39.0-52.0); Hemoglobin 10.7 g/dL (13.0-18.0); Mean Corp Hgb Conc. 33.5 g/dL (33.0-37.0); Mean Corpuscular Hgb 30.6 pg (27.0-31.0); Mean Corpuscular Volume 91.1 fL (80.0-94.0); Mean Platelet Volume 11.3 fL (7.4-10.4); Nucleated Red Blood Cells % 0 % (-); Platelet Count 206 10^3/uL (130-400); Red Cell Dist. Width 14.1 % (11.5-14.5); White Blood Cell Count 6.2 10^3/uL (4.8-10.8)
[2024-07-10 12:10] LABS: Erythrocyte Sed Rate 24 mm/hour (0-20)
[2024-07-10 13:04] LABS: ALT (SGPT) 17 U/L (0-50); AST (SGOT) 24 U/L (17-59); Albumin 4.4 g/dl (3.5-5.0); Alkaline Phosphatase 45 U/L (38-126); Blood Urea Nitrogen 22 mg/dl (9-20); Calcium 9.4 mg/dl (8.4-10.2); Carbon Dioxide 29 mmol/L (22-30); Chloride 98 mmol/L (98-107); Glucose 113 mg/dl (70-99); HDL Cholesterol 47 mg/dl; LDL Cholesterol, Calculated 65 mg/dl; Potassium 4.5 mmol/L (3.5-5.1); Sodium 138 mmol/L (135-145); Total Bilirubin 0.7 mg/dl (0.2-1.3); Total Cholesterol 162 mg/dl (50-199); Total Protein 6.6 g/dl (6.3-8.2); Triglyceride 250 mg/dl (10-149); Very Low Density Lipoprotein 50 mg/dl (0-30); eGFR > 60.00
[2024-07-10 13:15] LABS: C-Reactive Protein < 5.00 mg/L (0.0-10.00)
[2024-07-10 13:46] LABS: PSA, Total - Screen 0.28 ng/ml (0.0-4.0)
[2024-07-10 14:05] LABS: Glycohemoglobin (HgbA1c) 6.1 % (4.0-5.6)
== END ==
LOC: REG 10:15
PROVIDERS: ATTENDING PHYSICIAN Family Medicine
DX: G06.1 Intraspinal abscess and granuloma (principal); D64.9 Anemia, unspecified; E78.2 Mixed hyperlipidemia; E11.40 Type 2 diabetes mellitus with diabetic neuropathy, unspecified; Z12.5 Encounter for screening for malignant neoplasm of prostate
CPT/HCPCS: 36415; 80053; 80061; 83036; 85025; 85652; 86140; G0103

== ENCOUNTER 2024-07-12 22:30 | Inpatient (IN) | payer MEDICARE, BC, SELFPAY ==
[2024-07-12 18:55] VITALS: BP 95/63
[2024-07-12 19:42] LABS: % Basophils 0.7 % (0-2); % Eosinophils 1.9 % (0-6); % Lymphocytes 14.7 % (20.5-51.1); % Monocytes 6.3 % (1.7-9.3); % Neutrophils 75.4 % (42.2-75.2); Absolute Basophils 0.1 10^3/uL (0-0.2); Absolute Eosinophils 0.1 10^3/uL (0-0.7); Absolute Immature Granulocytes 0.1 10^3/uL (0-0.05); Absolute Monocytes 0.4 10^3/uL (0.1-0.6); Absolute Neutrophils 5.1 10^3/uL (1.4-6.5); Hematocrit 24.8 % (39.0-52.0); Hemoglobin 8.3 g/dL (13.0-18.0); Mean Corp Hgb Conc. 33.5 g/dL (33.0-37.0); Mean Corpuscular Hgb 30.2 pg (27.0-31.0); Mean Corpuscular Volume 90.2 fL (80.0-94.0); Nucleated Red Blood Cells % 0 % (-); Platelet Count 199 10^3/uL (130-400); Red Blood Cell Count 2.75 10^6/uL (4.70-6.10); Red Cell Dist. Width 14.4 % (11.5-14.5); White Blood Cell Count 6.7 10^3/uL (4.8-10.8)
[2024-07-12 19:52] LABS: ALT (SGPT) 15 U/L (0-50); AST (SGOT) 20 U/L (17-59); Albumin 3.9 g/dl (3.5-5.0); Alkaline Phosphatase 45 U/L (38-126); Blood Urea Nitrogen 37 mg/dl (9-20); Calcium 9.5 mg/dl (8.4-10.2); Carbon Dioxide 24 mmol/L (22-30); Chloride 102 mmol/L (98-107); Glucose 128 mg/dl (70-99); Potassium 4.3 mmol/L (3.5-5.1); Sodium 138 mmol/L (135-145); Total Bilirubin 0.3 mg/dl (0.2-1.3); Total Protein 5.9 g/dl (6.3-8.2); eGFR > 60.00
[2024-07-12 20:29] VITALS: BP 117/48
--- NOTE | 2024-07-12 20:34 | ED.GENMED ---
History of Present Illness
General
Chief Complaint: Rectal Bleeding
Source: patient and family
Time Seen by Provider: 07/12/24 19:54
History of Present Illness
History of Present Illness:
Pleasant 84-year-old male presents to the emergency department with 4 episodes of GI bleeding. He states that his stool has been bright red and dark. He has photographed the bowel movement in the toilet bowl. Patient denies being on any blood
thinners. He reports no abdominal pain. Patient has had rectal bleeding in the past.
Past History
Past History
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
chronic anemia, obstructive sleep apnea)
ED Past Surgical History: Cholecystectomy, Orthopedic, Tonsilectomy and Other (Hernia repair)
Social History
Tobacco: Former smoker
Alcohol: Occasional
Personal:
Living: with family
Family History
Family History: CAD and Other (Family history of hypertriglyceridemia and coronary artery disease); Negative Diabetes, Hypertension, Asthma or Cancer
Review of Systems
Review of Systems
Allergies reviewed?: Yes
All Other Systems: ROS reviewed and negative except as documented in HPI and ROS
Constitutional: Reports no symptoms
EENT: Reports no symptoms
Respiratory: Reports no symptoms
Cardiac: Reports no symptoms
ABD/GI: Reports diarrhea, bloody stools and black stools; Denies abdominal pain
: Reports no symptoms
Musculoskeletal: Reports no symptoms
Skin: Reports no symptoms
Neurological: Reports no symptoms
Endocrine: Reports no symptoms
Hematologic/Lymphatic: Reports no symptoms
Psychiatric: Reports anxiety
Phy Exam
General Physical Exam
General Presentation: well appearing and mild distress
General age: appears stated age
General Skin: warm
General Habitus: elderly
General Mental: alert
General Hydration: appears well hydrated
ENT Exam
ENT Exam: EOMI, pharynx normal, neck supple and normocephalic
Eye Exam
Eye Exam: PERRL, cornea clear and conjunctiva normal
Cardiovascular Exam
Cardiovascular Exam: regular rate/rhythm
Pulmonary Exam
Pulmonary Exam: lungs clear, no respiratory distress, no rales, no crackles, no rhonchi, no stridor, no wheezing and no cough
Gastrointestinal Exam
Gastrointestinal Exam: abnormal bowel sounds (Slightly hyperactive)
Neurological Exam
Neurological Exam: alert, oriented x3, no motor deficits and speech normal
Musculoskeletal Exam
Musculoskeletal Exam: full ROM and no edema
Skin Exam
Skin Exam: normal color, warm/dry, no rash and no petechia
Psychiatric Exam
Psychiatric Exam: normal mood/affect
Course
Orders/Labs/Results
Orders:
Orders
07/12/24 19:30
Type And Crossmatch [Type+Screen] Urgent
Complete Blood Count/With Diff Urgent
Comprehensive Metabolic Panel Urgent
Abnormal Lab Results
07/12/24
19:30
RBC 2.75 L 10^6/uL
(4.70-6.10)
Hgb 8.3 L D g/dL
(13.0-18.0)
Hct 24.8 L %
(39.0-52.0)
MPV 11.0 H fL
(7.4-10.4)
Abs Immat Gran (auto) 0.1 H 10^3/uL
(0-0.05)
Absolute Lymphs (auto) 1.0 L 10^3/uL
(1.2-3.4)
Immature Gran % 1.0 H %
(0-0.5)
Neutrophils % 75.4 H %
(42.2-75.2)
Lymphocytes % 14.7 L %
(20.5-51.1)
BUN 37 H mg/dl
(9-20)
Glucose 128 H mg/dl
(70-99)
Total Protein 5.9 L g/dl
(6.3-8.2)
07/12/24 19:30
07/12/24 19:30
Vital Signs
Initial and Last Documented VS:
Initial Vital Signs
Temp Pulse Resp BP Pulse Ox
97.3 F 87 18 9563 97
07/12/24 18:55 07/12/24 18:55 07/12/24 18:55 07/12/24 18:55 07/12/24 18:55
Last Documented Vital Signs
Temp Pulse Resp BP Pulse Ox
97.3 F 87 18 63 97
07/12/24 18:55 07/12/24 18:55 07/12/24 18:55 07/12/24 18:55 07/12/24 18:55
*Critical Care Note
Total Time (30-74mins, 75-104mins- exclusive of procedures): Not Applicable
ED Attending Note
-
Portions of this chart may have been created with voice recognition software.� Occasional wrong word or��sound alike� substitutions may have occurred due to the inherent limitations of voice recognition software.
Discharge Plan
Departure
Patient Disposition: Admit
Date of Disposition: 07/12/24
Time of Disposition: 20:38
Presentation/result/management discussed w/ accepting MD/DO: Hospitalist
Condition: Good
Discharge Problem:
Acute GI bleeding
Prescriptions:
No Action
gemfibrozil 600 MG tablet
600 mg PO BID
tamsulosin 0.4 MG capsule
0.4 mg PO BID
pantoprazole 40 MG tablet,delayed release (DR/EC)
40 mg PO DAILY
simvastatin 20 MG tablet
20 mg PO QPM
aspirin 81 MG tablet,delayed release (DR/EC)
81 mg PO BID
omega 7-ssl-nlk-fish oil [Fish Oil] 1,200 (144-216) mg Capsule
1 cap PO BID
latanoprost 0.005 % Drops
1 drp BOTH EYES HS
amlodipine 5 mg Tablet
5 mg PO QPM
dorzolamide-timolol 22.3-6.8 mg/mL drops
1 drp BOTH EYES DAILY
metformin 500 mg Tablet Extended Release 24 Hr
500 mg PO BID
coenzyme Q10 [CoQ-10] 100 mg Capsule
100 mg PO QPM
acetaminophen [Tylenol Extra Strength] 500 mg Tablet
1,000 mg PO Q8H Qty: 0 0RF
tramadol 50 mg Tablet
50 mg PO Q4HPRN PRN (Reason: severe pain)
ibuprofen [Advil] 200 mg Tablet
200 mg PO BIDPRN PRN (Reason: mild pain)
polyethylene glycol 3350 [HealthyLax] 17 gram powder in packet
17 g PO DAILY
losartan 100 mg Tablet
100 mg PO DAILY
Interventions
Interventions:
*Risk Screen - Suicide Last Done: 07/12/24 18:55
*General Assessment Last Done: 07/12/24 18:55
*Neglect/Abuse Screening Last Done: 07/12/24 18:55
*ED COVID-19 Vaccine History Last Done: 07/12/24 18:55
Discharge Date and Time
Print Language: AFGHAN
--- NOTE | 2024-07-12 20:44 | HPS.HSE ---
Family Physician
-
Family Physician:
Chief Complaint
-
rectal bleeding
History of Present Illness
Patient is an 84-year-old male with past medical history significant for hypertension, DM II, hyperlipidemia, osteoarthritis, anemia, BPH, metastatic prostate cancer to bone, and bladder cancer who presented to ED for evaluation of rectal bleeding
starting today. Patient reports this morning he had bright red blood in the toilet with bowel movement, no associated pain, was going to see if resolved but he did have 3 more that were similar than reports and episode of dizziness and decided to
come for evaluation. He denies any other symptoms.
Medical History
Past Medical History
Past Medical History: Reports Other
Additional Past Medical History:
hypertension
DM II
hyperlipidemia
osteoarthritis
anemia
BPH
metastatic prostate cancer to bone
bladder cancer
Hx Caldera's esophagus
sleep apnea
Past Surgical History: Reports Other
Additional Past Surgical History:
bilateral inguinal hernia repair
retinal surgery (2011)
cholecystectomy (2006)
MOHS
Social History
Tobacco: Non-smoker
Alcohol: Occasional
Drug: None
Personal:
Living: With Family
Employment: Retired
Family History
Family History: Not pertinent
Allergies / Home Medications
Allergies reflects when Allergies were last updated in [employer].
Home Medications with original date entered in [employer]
Allergy/Medication List:
Allergies
Allergy/AdvReac Type Severity Reaction Status Date / Time
medication that stimulates Allergy patient Uncoded 01/14/24 11:51
bone iván doesn't
know name
seasonal Allergy sneezing, Uncoded 01/14/24 11:51
runny eyes
Home Medications
gemfibrozil 600 mg tablet 600 mg PO BID High Cholesterol 04/17/19
pantoprazole 40 mg tablet,delayed release 40 mg PO DAILY Gastrointestinal Issue 04/17/19
simvastatin 20 mg tablet 20 mg PO QPM High Cholesterol 04/17/19
tamsulosin 0.4 mg capsule 0.4 mg PO BID Urinary Issue 04/17/19
aspirin 81 mg tablet,delayed release 81 mg PO BID Blood Clot Prevention/Tx 02/17/20
omega 4-fjn-xyk-fish oil 1,200 mg (144 mg-216 mg) capsule (Fish Oil) 1 cap PO BID Supplement 06/05/22
amlodipine 5 mg tablet 5 mg PO QPM Blood Pressure 10/28/23
coenzyme Q10 100 mg capsule (CoQ-10) 100 mg PO QPM Supplement 10/28/23
dorzolamide 22.3 mg-timolol 6.8 mg/mL eye drops 1 drp BOTH EYES DAILY Eye Condition 10/28/23
latanoprost 0.005 % eye drops 1 drp BOTH EYES HS Eye Condition 10/28/23
metformin 500 mg tablet,extended release 24 hr 500 mg PO BID Diabetes 10/28/23
ibuprofen 200 mg tablet (Advil) 200 mg PO BIDPRN PRN mild pain 01/14/24
losartan 100 mg tablet 100 mg PO DAILY 01/14/24
polyethylene glycol 3350 17 gram oral powder packet (HealthyLax) 17 g PO DAILY PRN constipation 01/14/24
tramadol 50 mg tablet 50 mg PO Q4HPRN PRN severe pain 01/14/24
acetaminophen 500 mg tablet (Tylenol Extra Strength) 1,000 mg PO Q8H PRN pain 07/12/24
Review of Systems
-
History Source: Patient
Constitutional: Reports No Symptoms
EENT: Reports No Symptoms
Respiratory: Reports No Symptoms
Cardiac: Reports No Symptoms
Abdomen/GI: Reports Bloody Stools (x4 today)
: Reports No Symptoms
Musculoskeletal: Reports No Symptoms
Skin: Reports No Symptoms
Neurological: Reports No Symptoms
Endocrine: Reports No Symptoms
Hematologic/Lymphatic: Reports No Symptoms
Psych: Reports No Symptoms
Physical Exam
Vital Signs
Vital Signs
Temp Pulse Resp BP Pulse Ox
97.3 F 87 18 95/63 96
07/12/24 18:55 07/12/24 18:55 07/12/24 18:55 07/12/24 18:55 07/12/24 20:20
Physical Exam
General: Well Developed, Well Nourished, No Apparent Distress, Comfortable and Conversant
HEENT: NormoCephalic, Moist mucous membranes, Atraumatic, PERRLA, [place] Conjunctivae, Nose Appears Normal and Ears Appear Normal
Respiratory: Clear, Non Labored Respirations and Decreased Breath Sounds
Cardiac: S1/S2 and Regular Rhythm; No Murmur, Rub or Gallop
GI: Soft, Non Tender, Non Distended and Normal Bowel Sounds; No Organomegaly
Rectal: Deferred by Provider
Genito-urinary: Deferred by me
Musculoskeletal: No Clubbing, No Cyanosis and No Edema
Skin: No Rash
Neuro: Awake, Alert, AO x 3 and Nonfocal/grossly intact
Psych: Calm and Intact Judgment/Insight
Laboratory Results
-
07/12/24 19:30
07/12/24 19:30
Laboratory Results
Total Bilirubin 0.3 mg/dl (0.2-1.3) 07/12/24 19:30
AST 20 U/L (17-59) 07/12/24 19:30
ALT 15 U/L (0-50) 07/12/24 19:30
Alkaline Phosphatase 45 U/L (38-126) 07/12/24 19:30
Data Reviewed
-
Lab Data: Labs Reviewed by me (hgb 8.3, hct 24.8, )
Impression/Plan
-
IMPRESSION/PLAN:
#GI bleed
Hgb 8.3/Hct 24.8
- Admit to telemetry
- Consult GI
- Monitor H/H
- Protonix gtt
- Check iron studies
- Clear fluids, NPO after midnight
#hypertension
- hold amlodipine, and losartan
#DM II
- continue metformin
#hyperlipidemia
- continue gemfibrozil and simvastatin
#anemia
RBC 2.75, Hgb 8.3/Hct 24.8, MCV 90.2, Plt 199
- monitor CBC
#BPH
- continue tamsulosin
#metastatic prostate cancer to bone
previously treated with chemo, follows up out patient
#bladder cancer
previously treated with BCG, follow up out patient
has scheduled routine follow up cystoscopy for 07/15/2024
#osteoarthritis
#Hx Caldera's esophagus
#sleep apnea
CPAP qHS
Code Status: Full Code
DVT Prophylaxis: SCDs
[2024-07-12] MEDS: PROTONIX IV 80 MG IV (21:31)
--- NOTE | 2024-07-12 21:39 | W.PN.UPDATE ---
Update Note
Progress Note Update
This is an addendum to the H&P written by Flori Murphy on 07/12/2024. Patient seen and examined independently with LYMPHEDEMA THERAPIST.
84-year-old male past medical history of prostate cancer metastases to bone, bladder cancer, GERD, Caldera's esophagus, hypertension, hypercholesteremia, diabetes, kidney stones, GI bleeding, glucoma, diverticulosis, chronic anemia, obstructive
sleep apnea, BPH, MSSA bacteremia secondary to cervical epidural abscess, presenting with 4 episodes of dark GI bleeding with clots associate with some dizziness.
Reportedly had rectal bleeding 10 years ago requiring transfusion but does not remember if he had any workup or treatment.
He started taking 1 tablet of Advil daily 2 weeks ago for neck pain.
Blood pressure of 95/63. Hemoglobin 8.3 from 10.7 previously.
Endoscopy in 2011 and showed gastric polyps.
Concern for potential upper GI bleeding secondary to recent NSAID use versus diverticular bleeding.
CT abdomen pelvis pending. Hold NSAIDs and aspirin. Clear liquid diet, n.p.o. past midnight. Protonix drip. Check iron studies. GI consulted. Hold antihypertensive medications.
[2024-07-12] MEDS: PROTONIX 100 IV (21:44)
[2024-07-12 21:53] VITALS: BP 119/66
[2024-07-12 22:00] VITALS: BP 132/61
[2024-07-12 23:00] VITALS: BP 110/62
[2024-07-13] VITALS (11 sets, daily range): BP systolic 113–152; BP diastolic 55–88; PULSE 79–99; BMI 34.5
[2024-07-13 00:47] LABS: Glucose - Point of Care 132 mg/dl (70-99)
[2024-07-13 01:53] LABS: Hematocrit 22.5 % (39.0-52.0); Hemoglobin 7.5 g/dL (13.0-18.0)
--- NOTE | 2024-07-13 02:44 | PTCARENOTE ---
Receive pt from ER. Pt alert oriented X3, in no distress. Pt assist X1 to his bed, feels weak. Pt oriented to the room, call gould within reach. Pt on NSR with PACs on telemonitor. VSS (T=98, HR=82, RR=20, PC=358/78, SpO2=97% on RA). Orthostatic VS
obtained. Pt offers no complaint of dizziness, or short breath with sitting or standing. Pt had a small black BM that was Hematest positive. Hemoglobin after transfer to the floor =7.5 down from 8.3 earlier. BUSINESS ATTORNEY made aware, no orders given at this
time. Next H&H due by 6. Protonix gtt infusing as per order. CPAP applied and adjusted by Respiratory. Pt sleeping comfortably in his bed. Will continue to monitor the pt closely.
[2024-07-13 05:52] LABS: Glucose - Point of Care 124 mg/dl (70-99)
--- NOTE | 2024-07-13 06:13 | W.PN.UPDATE ---
Update Note
Progress Note Update
holding metformin d/t pt receiving ct with contrast 07/12. Will resume 07/15.
add low ss insulin with accuchecks
[2024-07-13] MEDS: PROTONIX 100 IV (06:34)
[2024-07-13] MEDS: NOVOLOG FLEXPEN-LOW RESISTANCE SC ×2 (07:13→16:59)
[2024-07-13 07:59] LABS: Hematocrit 21.9 % (39.0-52.0); Hemoglobin 7.4 g/dL (13.0-18.0); Mean Corp Hgb Conc. 33.8 g/dL (33.0-37.0); Mean Corpuscular Hgb 30.5 pg (27.0-31.0); Mean Corpuscular Volume 90.1 fL (80.0-94.0); Platelet Count 161 10^3/uL (130-400); Red Blood Cell Count 2.43 10^6/uL (4.70-6.10); Red Cell Dist. Width 14.6 % (11.5-14.5); White Blood Cell Count 6.1 10^3/uL (4.8-10.8)
[2024-07-13] MEDS: FLOMAX 0.4 MG PO ×2 (08:06→19:12)
[2024-07-13] MEDS: LOPID 600 MG PO ×2 (08:08→19:12)
[2024-07-13] MEDS: COSOPT EYE DROPS 1 DROP BOTH EYES (08:09)
--- NOTE | 2024-07-13 08:42 | CON.GI ---
Addendum entered and electronically signed by Vickie Boyer DO 07/13/24 10:37:
The patient was seen and examined by me independently in collaboration with the nurse practitioner.
Past medical history/social history/medications/allergies/family history reviewed.
Lab data and imaging data reviewed.
Briefly, 84 y.o. of prostate ca w/ mets to bladder and bone s/p chemo and TURBT x2, barretts esophagus, HTN, HLD, DM2, history of presumed diverticular bleed, chronic anemia, hx of staph bacteremia in 10/2023, PAD admitted with GI bleeding. Reports
4 episodes of maroon colored stool with clots which started late Saturday. He does admit to taking 1 tablet of ibuprofen 200mg in combination with tylenol over the last few weeks for neck pain to help him sleep. He has had 2 bloody stools since
arrival. Rectal exam in ED documented as melena, however, on current rectal, maroon and red colored stool.
Hemoglobin 7.4 down from 8.3 with elevated BUN. He has risk factors for PUD given recent NSAID use, otherwise, only takes baby ASA. That said, the pattern and color of bleeding could be 2/2 distal small bowel or colonic source. Agree with both EGD
and Colonoscopy tomorrow.
A/P:
PPI IV BID okay
2 large bore peripheral gauge IVs
active T&C
Transfuse for Hgb <7
H&H q12 hours
Clear liquids + colon prep today, NPO past midnight for procedures tomorrow
Original Note:
Consultation
-
Date/Time Consultation Requested: 07/13/248
Date/Time Consultation Performed: 07/13/24 0842
Requesting Provider: JEANINE Paiz
Performing Provider: Dr. Boyer/JEANINE Franco
Reason for Consultation: GIB
Medical History
Chief Complaint / HPI
Chief Complaint: rectal bleeding
History of Present Illness:
84-year-old male with past medical history of prostate cancer with metastatic disease to bladder and bone status postchemotherapy and TURBT x 2, GERD, Caldera's, hypertension, hyperlipidemia, diabetes, prior history of GI bleed presumed
diverticular (2008), kidney stones, glaucoma, chronic anemia, CLEMENCIA, epidural abscess, spinal canal stenosis, Staph aureus bacteremia 10/2023, peripheral artery disease who has recently been taking ibuprofen 200 mg daily for the past couple weeks for
neck discomfort presents to the emergency room with 4 episodes of bright red blood per rectum. The patient states that he was having normal bowel movements up until yesterday when he started noticing bright red blood and clots. After 4 episodes he
came to the emergency room. He was not having any abdominal discomfort other than the urge to have a bowel movement. He denies any fevers, chills, nausea, vomiting, melena, dysphagia or odynophagia. No early satiety or unintentional weight loss.
He already takes aspirin 81 mg daily. No other blood thinners. He does take pantoprazole 40 mg daily. He has never had radiation for any of his cancer treatments. The patient has had 2 episodes of bleeding since arrival. 1 in the emergency room
and 1 last night. They are not documented this as 'black'. I did a rectal exam at bedside and it shows maroon/red stool per rectum.
Past Medical History
Past Medical History: Cancer (Prostate cancer with mets to bone and bladder), GERD (Barretts ), HTN, Hypercholesterolemia, NIDDM and Other (Kidney stones, glaucoma, diverticulosis, GI bleed presumed to be diverticular in nature (2008), chronic
anemia, obstructive sleep apnea epidural abscess, spinal canal stenosis, discitis, Staph aureus bacteremia (10/2023), peripheral artery disease,)
Past Surgical History: Cholecystectomy, Tonsilectomy and Other (Hernia repair vitrectomy, foot surgery, retinal surgery, Mohs surgery, TURBT x 2 (2021 and repeat 2023) bluelight cystoscopy)
Social History
Tobacco: Former Smoker
Alcohol: Occasional
Drug: None
Personal:
Living: With Family
Family History
Family History: Other (No family history of gastrointestinal malignancy or IBD)
Allergies / Home Medications
Allergy/AdvReac Type Severity Reaction Status Date / Time
medication that stimulates Allergy patient Uncoded 01/14/24 11:51
bone iván doesn't
know name
seasonal Allergy sneezing, Uncoded 01/14/24 11:51
runny eyes
�Medication �Instructions �Recorded
gemfibrozil 600 mg tablet 600 mg PO BID High Cholesterol 04/17/19
pantoprazole 40 mg tablet,delayed 40 mg PO DAILY Gastrointestinal 04/17/19
release Issue
simvastatin 20 mg tablet 20 mg PO QPM High Cholesterol 04/17/19
tamsulosin 0.4 mg capsule 0.4 mg PO BID Urinary Issue 04/17/19
aspirin 81 mg tablet,delayed 81 mg PO BID Blood Clot 02/17/20
release Prevention/Tx
omega 1-bal-tgc-fish oil 1,200 mg 1 cap PO BID Supplement 06/05/22
(144 mg-216 mg) capsule (Fish Oil)
amlodipine 5 mg tablet 5 mg PO QPM Blood Pressure 10/28/23
coenzyme Q10 100 mg capsule 100 mg PO QPM Supplement 10/28/23
(CoQ-10)
dorzolamide 22.3 mg-timolol 6.8 1 drp BOTH EYES DAILY Eye Condition 10/28/23
mg/mL eye drops
latanoprost 0.005 % eye drops 1 drp BOTH EYES HS Eye Condition 10/28/23
metformin 500 mg tablet,extended 500 mg PO BID Diabetes 10/28/23
release 24 hr
ibuprofen 200 mg tablet (Advil) 200 mg PO BIDPRN PRN mild pain 01/14/24
losartan 100 mg tablet 100 mg PO DAILY 01/14/24
polyethylene glycol 3350 17 gram 17 g PO DAILY PRN constipation 01/14/24
oral powder packet (HealthyLax)
tramadol 50 mg tablet 50 mg PO Q4HPRN PRN severe pain 01/14/24
acetaminophen 500 mg tablet 1,000 mg PO Q8H PRN pain 07/12/24
(Tylenol Extra Strength)
Review of Systems
-
All other systems: A 12 pt ROS was Negative except as stated above in HPI
Vital Signs
Temp Pulse Resp BP Pulse Ox
98.2 F 92 20 135/86 98
07/13/24 07:18 07/13/24 07:18 07/13/24 07:18 07/13/24 07:18 07/13/24 08:15
Physical Exam
Exam
General: No Apparent Distress
HEENT: Anicteric
Respiratory: Clear (Anterior)
Cardiac: Regular Rhythm
GI: Soft, Non Tender, Non Distended and Normal Bowel Sounds
Rectal: Red (Red/maroon)
Skin: Warm and Dry
Neuro: AO x 3
Results
WBC 6.1 10^3/uL (4.8-10.8) 07/13/24 07:29
Hgb Cancelled 07/13/24 07:30
Hct Cancelled 07/13/24 07:30
MCV 90.1 fL (80.0-94.0) 07/13/24 07:29
Plt Count 161 10^3/uL (130-400) 07/13/24 07:29
Absolute Neuts (auto) 5.1 10^3/uL (1.4-6.5) 07/12/24 19:30
Sodium 138 mmol/L (135-145) 07/12/24 19:30
Potassium 4.3 mmol/L (3.5-5.1) 07/12/24 19:30
Chloride 102 mmol/L (98-107) 07/12/24 19:30
Carbon Dioxide 24 mmol/L (22-30) 07/12/24 19:30
BUN 37 mg/dl (9-20) H 07/12/24 19:30
Creatinine 1.1 mg/dL (0.7-1.3) 07/12/24 19:30
Calcium 9.5 mg/dl (8.4-10.2) 07/12/24 19:30
Total Bilirubin 0.3 mg/dl (0.2-1.3) 07/12/24 19:30
AST 20 U/L (17-59) 07/12/24 19:30
ALT 15 U/L (0-50) 07/12/24 19:30
Alkaline Phosphatase 45 U/L (38-126) 07/12/24 19:30
Diagnostic Image Results:
CT Abd/Pelvis with IV contrast:
Extremely limited evaluation of intestinal tract without oral contrast in the evaluation of inflammatory/infectious process, no intestinal obstruction or free air. Descending colon and sigmoid diverticulosis.
Markedly limited evaluation of intestinal tract for active bleeding without angiographic technique.
Prior cholecystectomy.
Predominantly mild diffuse thickening of the wall of the urinary bladder most likely on the basis of bladder outlet obstruction.
Known peripherally sclerotic lesion in the right sacrum correlating with the patient's history of metastatic disease, predominantly stable.
Electronically signed by Colton Tee MD, 07/12/2024 9:38 PM
Prior GI Procedures:
EGD: 02/10/21 (Dr. Dodd) - Normal esophagus.
- Z-line irregular, 44 cm from the incisors. This was
biopsied for evaluation of Caldera's Esophagus. (mod chronic inflammation and reactive changes, neg IM/neg dysplasia)
- Normal mucosa was found in the entire stomach.
Biopsied.
- A few gastric polyps. Biopsied.
- Normal examined duodenum. Biopsied.
EGD 06/30/2015 ([facility]ous[facility]) - Normal esophagus.
- Esophageal mucosal changes secondary to established
short-segment Caldera's disease. Biopsied.
- Normal stomach. Biopsied.
- Normal examined duodenum. Biopsied
EGD 03/02/2011 ([facility]) - Z-line irregular,. This was biopsied to look for
Caldera's esophagus. (no goblet cell metaplasia. No squamous esophagus identified, Gastric fundic mucosa with chronic inflammation and slight foveolar hyperplasia, no dysplasia)
- Multiple gastric polyps. Laboratory Asst biopsies taken.
- Gastric mucosal abnormality characterized by erythema.
This was biopsied to look for H pylori bacteria.
- Normal examined duodenum.
Colonoscopy: 09/16/2013 (Yousif) - Diverticulosis in the sigmoid colon and in the
descending colon.
Colonoscopy: 08/04/2008 (Yousif) - Diverticulosis in the entire colon.
- The examination was otherwise normal.
Assessment / Plan
-
84-year-old male with past medical history of prostate cancer with metastatic disease to bladder and bone status postchemotherapy and TURBT x 2, GERD, Caldera's, hypertension, hyperlipidemia, diabetes, prior history of GI bleed presumed
diverticular (2008), kidney stones, glaucoma, chronic anemia, CLEMENCIA, epidural abscess, spinal canal stenosis, Staph aureus bacteremia 10/2023, peripheral artery disease who has recently been taking ibuprofen 200 mg daily for the past couple weeks for
neck discomfort presents to the emergency room with 4 episodes of bright red blood per rectum. We are asked to evaluate for same. Patient has had 2 episodes of bleeding. 1 in the emergency room. 1 last evening. Rectal exam performed by myself
with maroon/red blood per rectum. WBC 6.1, hemoglobin 7.4 (down from 8.3). Of note patient's hemoglobin was 10.7 on 07/10/2024, hematocrit 21.9, platelets 161, sodium 130, potassium 4.3, BUN 37, creatinine 1.1. CT of the abdomen and pelvis with IV
contrast only is limited evaluation of intestinal tract without oral contrast in the evaluation of inflammatory/infectious process. No intestinal obstruction or free air. Descending colon and sigmoid colon shows diverticulosis. Markedly limited
evaluation of intestinal tract for active bleeding without angiographic technique.
Impression:
Acute GI bleed, likely lower however cannot exclude upper given the presence of ibuprofen over the past couple weeks and elevated BUN
Acute on chronic anemia
Plan:
-Clear liquid diet no reds
-Monitor hemoglobin, transfuse for hemoglobin less than 7
-EGD/colonoscopy planned for tomorrow
-Continue PPI drip
Further recommendations to be forthcoming
-
-
Thank you for consultation and allowing me to participate in the patient's care. Please call the director [employer] [facility] GI physician during the after hours with any questions or concerns.
--- NOTE | 2024-07-13 09:17 | W.PN.HOSP.TC ---
Today's Communication/Plan
-
PPI. Plan egd/[facility] in am
Assessment / Plan
Assessment / Plan
Physical exam:
General: Well Developed, Well Nourished and No Apparent Distress
HEENT: Normocephalic, Atraumatic and Moist Mucous Membranes
Respiratory: Clear to Auscultation; Negative Wheezes, Rales or Rhonchi
Cardiac: Regular Rhythm and S1/S2
GI: Soft, Nontender and Nondistended
Musculoskeletal: No Clubbing, No Cyanosis and No Edema
Neuro: Awake, Alert and Oriented
Psych: Calm
A/P:
Acute GI bleed:
Continue IV pantoprazole twice a day
Continue monitor hemoglobin
On clear liquid diet
GI consult appreciated
Plan for EGD and colonoscopy tomorrow
Acute blood loss anemia:
Latest hemoglobin 7.5
Discussed pros and cons of transfusion and I had him sign a blood transfusion consent (he said he had 1 already signed but I cannot find it)
Monitor hemoglobin and transfuse if hemoglobin less than 7 or active bleeding
Prior history of GI bleed:
History of diverticular in the past
Caldera's esophagus:
Continue PPI
Metastatic prostate cancer:
S/p chemotherapy and TURBT in the past
Hypertension:
Diabetes mellitus type 2:
Continue insulin sliding scale
Continue metformin
Hyperlipidemia:
Continue home statins and gemfibrozil
CLEMENCIA:
Continue CPAP
BPH:
Continue Flomax
DVT prophylaxis:
SCDs
CODE STATUS:
Full code
Total time spent on today's encounter was 52 minutes which included time spent in counseling the patient/family regarding diagnosis and treatment plan as listed above, goals of care, and symptom management. Case was discussed with nursing staff,
specialists, and care coordinators/case management. All labs and imaging personally reviewed by me. Remainder the time spent in detailed review of previous records, lab data, imaging, and other medical provider documentation.
Anticipated Discharge: 24 - 48 hours
Subjective/Interval History
-
Date of Service: July 13, 2024
Patient continues to have bright blood per rectum, at least 2 episodes after admission. No abdominal pain nausea or vomiting. No hematemesis.
Objective Data
-
Labs:
Laboratory Results
07/13/24 07/13/24 07/13/24
01:44 07:29 07:30
WBC 6.1
Hgb 7.5 L 7.4 L Cancelled
Hct 22.5 L 21.9 L Cancelled
Plt Count 161
07/13/24 07/13/24
13:30 19:30
WBC
Hgb Pending Pending
Hct Pending Pending
Plt Count
Vital Signs:
Vital Signs
Temp Pulse Resp BP Pulse Ox
98.2 F 92 20 135/86 98
07/13/24 07:18 07/13/24 07:18 07/13/24 07:18 07/13/24 07:18 07/13/24 08:15
I&O
07/12/24 07/13/24 07/14/24
06:59 06:59 06:59
Intake Total 60 / 60
Output Total 450 / 450
Balance -390 / -390
--- NOTE | 2024-07-13 11:11 | CM ---
CM spoke with [facility] who reports living with spouse in a multi level home with 2 entry steps.
Patient uses a cane for ambulation, CPAP at night through [employer]. Patients reports living in a multi-level home with two entry steps. Patient uses a cane for ambulation at baseline, CPAP at night through [employer].
CM will continue to follow for discharge planning needs.
PCP: Marvin Mcgraw
Pharm: [facility] in [place]
[2024-07-13 12:05] LABS: Glucose - Point of Care 162 mg/dl (70-99)
[2024-07-13] MEDS: NOVOLOG FLEXPEN-LOW RESISTANCE 1 UNITS SC (12:34)
[2024-07-13 13:51] LABS: Hematocrit 22.6 % (39.0-52.0); Hemoglobin 7.5 g/dL (13.0-18.0)
[2024-07-13] MEDS: NULYTELY SOLUTION 4 LITERS PO (15:12)
[2024-07-13 16:46] LABS: Glucose - Point of Care 100 mg/dl (70-99)
[2024-07-13] MEDS: LIPITOR 10 MG PO (17:28)
[2024-07-13] MEDS: NSS (PRESERVATIVE FREE) 10 ML IV (19:12)
[2024-07-13] MEDS: FLUSH (NSS) 1 FLUSH IV (19:12)
[2024-07-13] MEDS: PROTONIX IV 40 MG IV (19:12)
[2024-07-13] MEDS: TYLENOL 650 MG PO (19:17)
[2024-07-13] MEDS: XALATAN OPHTHALMIC SOLUTION 1 DROP BOTH EYES (21:26)
[2024-07-13 21:35] LABS: Hematocrit 22.1 % (39.0-52.0); Hemoglobin 7.5 g/dL (13.0-18.0)
[2024-07-14 00:28] LABS: Glucose - Point of Care 110 mg/dl (70-99)
[2024-07-14 03:39] VITALS: BP 143/81
--- NOTE | 2024-07-14 05:41 | PTCARENOTE ---
Pt for prep for colonoscopy, stools not clear, bloody. GI exceptional needs teacher notified, wants pt to get 2 tap water enema. Order placed by JEANINE ([facility]). Pt is getting the 2 tap enemas per order.
[2024-07-14 06:32] LABS: Glucose - Point of Care 126 mg/dl (70-99)
[2024-07-14] MEDS: TYLENOL 650 MG PO ×2 (06:44→13:35)
[2024-07-14] MEDS: NOVOLOG FLEXPEN-LOW RESISTANCE SC ×3 (06:52→16:09)
[2024-07-14 07:05] VITALS: BP 164/84
[2024-07-14] MEDS: LOPID 600 MG PO ×2 (07:51→21:16)
[2024-07-14] MEDS: FLOMAX 0.4 MG PO ×2 (07:51→21:16)
[2024-07-14] MEDS: NSS (PRESERVATIVE FREE) 10 ML IV ×2 (07:52→21:16)
[2024-07-14] MEDS: PROTONIX IV 40 MG IV ×2 (07:52→21:16)
[2024-07-14] MEDS: COSOPT EYE DROPS 1 DROP BOTH EYES (07:53)
[2024-07-14 08:05] LABS: Hematocrit 23.6 % (39.0-52.0); Hemoglobin 7.8 g/dL (13.0-18.0); Mean Corp Hgb Conc. 33.1 g/dL (33.0-37.0); Mean Corpuscular Volume 90.8 fL (80.0-94.0); Mean Platelet Volume 11.2 fL (7.4-10.4); Platelet Count 173 10^3/uL (130-400); Red Cell Dist. Width 14.6 % (11.5-14.5); White Blood Cell Count 5.5 10^3/uL (4.8-10.8)
--- NOTE | 2024-07-14 08:24 | W.PN.HOSP.TC ---
Today's Communication/Plan
-
Plan for EGD/[facility] today
Assessment / Plan
Assessment / Plan
Physical exam:
General: Well Developed, Well Nourished and No Apparent Distress
HEENT: Normocephalic, Atraumatic and Moist Mucous Membranes
Respiratory: Clear to Auscultation; Negative Wheezes, Rales or Rhonchi
Cardiac: Regular Rhythm and S1/S2
GI: Soft, Nontender and Nondistended
Musculoskeletal: No Clubbing, No Cyanosis and No Edema
Neuro: Awake, Alert and Oriented
Psych: Calm
A/P:
Acute GI bleed:
Continue IV pantoprazole twice a day
Continue monitor hemoglobin
npo
GI consult appreciated
Discussed with GI today
Plan for EGD and colonoscopy today
Acute blood loss anemia:
Latest hemoglobin 7.8
Discussed pros and cons of transfusion and I had him sign a blood transfusion consent (he said he had 1 already signed but I cannot find it)
Monitor hemoglobin and transfuse if hemoglobin less than 7 or active bleeding
Prior history of GI bleed:
History of diverticular in the past
Caldera's esophagus:
Continue PPI
Metastatic prostate cancer:
S/p chemotherapy and TURBT in the past
Hypertension:
Diabetes mellitus type 2:
Continue insulin sliding scale
Continue metformin
Hyperlipidemia:
Continue home statins and gemfibrozil
CLEMENCIA:
Continue CPAP
BPH:
Continue Flomax
DVT prophylaxis:
SCDs
CODE STATUS:
Full code
Total time spent on today's encounter was 52 minutes which included time spent in counseling the patient/family regarding diagnosis and treatment plan as listed above, goals of care, and symptom management. Case was discussed with nursing staff,
specialists, and care coordinators/case management. All labs and imaging personally reviewed by me. Remainder the time spent in detailed review of previous records, lab data, imaging, and other medical provider documentation.
Anticipated Discharge: Within 24 hours
Subjective/Interval History
-
Date of Service: July 14, 2024
Patient bowel prep not completely performed. No nausea vomit
Objective Data
-
Labs:
Laboratory Results
07/13/24 07/14/24
21:19 06:52
WBC 5.5
Hgb 7.5 L 7.8 L
Hct 22.1 L 23.6 L
Plt Count 173
Sodium Pending
Potassium Pending
Chloride Pending
Carbon Dioxide Pending
BUN Pending
Creatinine Pending
Glucose Pending
Calcium Pending
Vital Signs:
Vital Signs
Temp Pulse Resp BP Pulse Ox
98.3 F 84 20 164/84 95
07/14/24 07:05 07/14/24 07:05 07/14/24 07:05 07/14/24 07:05 07/14/24 08:00
I&O
07/13/24 07/14/24 07/15/24
06:59 06:59 06:59
Intake Total 60 / 60 4000 / 4000
Output Total 450 / 450 1200 / 1200
Balance -390 / -390 2800 / 2800
[2024-07-14 08:52] LABS: Blood Urea Nitrogen 25 mg/dl (9-20); Calcium 8.5 mg/dl (8.4-10.2); Carbon Dioxide 25 mmol/L (22-30); Chloride 101 mmol/L (98-107); Estimated Creatinine Clearance 64 ml/min; Glucose 118 mg/dl (70-99); Potassium 3.6 mmol/L (3.5-5.1); Sodium 138 mmol/L (135-145); eGFR > 60.00
[2024-07-14] MEDS: CITROMA 300 ML PO (10:40)
[2024-07-14 11:37] VITALS: BP 140/82
[2024-07-14 12:17] LABS: Glucose - Point of Care 130 mg/dl (70-99)
[2024-07-14 15:09] VITALS: BP 141/76
[2024-07-14 16:05] LABS: Glucose - Point of Care 126 mg/dl (70-99)
[2024-07-14] MEDS: LIPITOR 10 MG PO (17:18)
[2024-07-14] MEDS: NULYTELY SOLUTION 2 LITERS PO (17:22)
[2024-07-14 19:37] VITALS: BP 149/81
[2024-07-14] MEDS: XALATAN OPHTHALMIC SOLUTION 1 DROP BOTH EYES (21:17)
[2024-07-14 23:23] VITALS: BP 157/85
[2024-07-15] VITALS (10 sets, daily range): BP systolic 12–156; BP diastolic 58–89
[2024-07-15 00:21] LABS: Glucose - Point of Care 111 mg/dl (70-99)
[2024-07-15 05:47] LABS: Glucose - Point of Care 129 mg/dl (70-99)
--- NOTE | 2024-07-15 06:33 | PTCARENOTE ---
Pt aaox3 able to make his needs known. 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 GI team combination man was notified, awaiting response at this time.
[2024-07-15] MEDS: NOVOLOG FLEXPEN-LOW RESISTANCE SC ×2 (07:35→12:12)
[2024-07-15 07:57] LABS: Hematocrit 25.6 % (39.0-52.0); Hemoglobin 8.5 g/dL (13.0-18.0); Mean Corp Hgb Conc. 33.2 g/dL (33.0-37.0); Mean Corpuscular Hgb 30.4 pg (27.0-31.0); Mean Corpuscular Volume 91.4 fL (80.0-94.0); Mean Platelet Volume 10.8 fL (7.4-10.4); Platelet Count 195 10^3/uL (130-400); Red Cell Dist. Width 14.5 % (11.5-14.5); White Blood Cell Count 5.8 10^3/uL (4.8-10.8)
[2024-07-15] MEDS: CITROMA 300 ML PO (08:18)
[2024-07-15] MEDS: LOPID 600 MG PO (08:20)
[2024-07-15] MEDS: GLUCOPHAGE XR EXTENDED RELEASE 500 MG PO (08:20)
[2024-07-15] MEDS: PROTONIX IV 40 MG IV (08:20)
[2024-07-15] MEDS: NSS (PRESERVATIVE FREE) 10 ML IV (08:20)
[2024-07-15] MEDS: COSOPT EYE DROPS 1 DROP BOTH EYES (08:20)
[2024-07-15] MEDS: FLOMAX 0.4 MG PO (08:20)
--- NOTE | 2024-07-15 09:46 | W.PN.HOSP.TC ---
Today's Communication/Plan
-
EGD and colonoscopy
Assessment / Plan
Assessment / Plan
Physical exam:
General: Well Developed, Well Nourished and No Apparent Distress
HEENT: Normocephalic, Atraumatic and Moist Mucous Membranes
Respiratory: Clear to Auscultation; Negative Wheezes, Rales or Rhonchi
Cardiac: Regular Rhythm and S1/S2
GI: Soft, Nontender and Nondistended
Musculoskeletal: No Clubbing, No Cyanosis and No Edema
Neuro: Awake, Alert and Oriented
Psych: Calm
A/P:
Acute GI bleed:
Continue IV pantoprazole twice a day
Continue monitor hemoglobin
npo
GI consult appreciated
Discussed with GI today
Plan for EGD and colonoscopy today
Acute blood loss anemia:
Latest hemoglobin 8.5
Discussed pros and cons of transfusion and I had him sign a blood transfusion consent (he said he had 1 already signed but I cannot find it)
Monitor hemoglobin and transfuse if hemoglobin less than 7 or active bleeding
Prior history of GI bleed:
History of diverticular in the past
Caldera's esophagus:
Continue PPI
Metastatic prostate cancer:
S/p chemotherapy and TURBT in the past
Hypertension:
Diabetes mellitus type 2:
Continue insulin sliding scale
Continue metformin
Hyperlipidemia:
Continue home statins and gemfibrozil
CLEMENCIA:
Continue CPAP
BPH:
Continue Flomax
DVT prophylaxis:
SCDs
CODE STATUS:
Full code
Anticipated Discharge: 24 - 48 hours
Subjective/Interval History
-
Date of Service: July 15, 2024
Patient did not had a good prep yesterday so had to go to extra steps last night and today. No nausea vomiting chest pain or shortness of breath.
Objective Data
-
Labs:
Laboratory Results
07/15/24
07:37
WBC 5.8
Hgb 8.5 L
Hct 25.6 L
Plt Count 195
Vital Signs:
Vital Signs
Temp Pulse Resp BP Pulse Ox
98.4 F 91 20 152/74 96
07/15/24 06:44 07/15/24 06:44 07/15/24 06:44 07/15/24 06:44 07/15/24 06:44
I&O
07/14/24 07/15/24 07/16/24
06:59 06:59 06:59
Intake Total 4000 / 4000 1260 / 1260
Output Total 1200 / 1200 400 / 400
Balance 2800 / 2800 860 / 860
[2024-07-15 12:12] LABS: Glucose - Point of Care 123 mg/dl (70-99)
[2024-07-15 13:53] LABS: Glucose - Point of Care 112 mg/dl (70-99)
--- NOTE | 2024-07-15 16:04 | W.DCSUMMARY ---
Discharge Summary
Discharge Data
Date of Admission: 07/12/24
Date of Discharge: 07/15/24
-
Pending Results: No
Hospital Course
Patient 84 years old male with history of metastatic prostate cancer, Caldera's esophagus, hypertension, hyperlipidemia, diabetes mellitus, he is due diverticular bleed in the past, came into the hospital with acute GI bleed. GI was consulted.
Patient hemoglobin was monitored and he did not require any blood transfusions. Patient had an upper endoscopy and colonoscopy. EGD showed small hiatal hernia, a few gastric polyps, normal rest of the study. Colonoscopy not optimal preparation
but diverticulosis noted in the rectosigmoid colon and suspected the bleeding was related to diverticular bleed. GI cleared him for discharge and also I reached out to GI and they are okay with restarting antiplatelet upon discharge. No other
events were noticed. He will be discharged in stable condition today.
Discharge duration: 36 minutes
Discharge Plan
-
Patient Disposition: Home (Routine Discharge)
Discharge Diagnosis/Procedures: Acute gastrointestinal bleed. Acute blood loss anemia. History of metastatic prostate cancer.
Diet: Low Cholesterol
Activity: As tolerated
Blood Work: Please PCP to order CBC, BMP within 1 week
Referrals:
Vickie Boyer DO [Active] - in four to six weeks
Marvin Mcgraw MD [Family Provider] - in less than 1 week
Prescriptions:
Continued
gemfibrozil 600 MG tablet
600 mg PO BID
tamsulosin 0.4 MG capsule
0.4 mg PO BID
pantoprazole 40 MG tablet,delayed release (DR/EC)
40 mg PO DAILY
simvastatin 20 MG tablet
20 mg PO QPM
aspirin 81 MG tablet,delayed release (DR/EC)
81 mg PO BID
omega 7-all-twy-fish oil [Fish Oil] 1,200 (144-216) mg Capsule
1 cap PO BID
latanoprost 0.005 % Drops
1 drp BOTH EYES HS
amlodipine 5 mg Tablet
5 mg PO QPM
dorzolamide-timolol 22.3-6.8 mg/mL drops
1 drp BOTH EYES DAILY
metformin 500 mg Tablet Extended Release 24 Hr
500 mg PO BID
coenzyme Q10 [CoQ-10] 100 mg Capsule
100 mg PO QPM
tramadol 50 mg Tablet
50 mg PO Q4HPRN PRN (Reason: severe pain)
polyethylene glycol 3350 [HealthyLax] 17 gram powder in packet
17 g PO DAILY PRN (Reason: constipation)
losartan 100 mg Tablet
100 mg PO DAILY
acetaminophen [Tylenol Extra Strength] 500 mg tablet
1,000 mg PO Q8H PRN (Reason: pain)
Discontinued
ibuprofen [Advil] 200 mg Tablet
200 mg PO BIDPRN PRN (Reason: mild pain)
Discharge Orders:
Discharge Patient (As Directed); Ordered 07/15/24
Ordered By: Gustavo Martinez
Discharge Date and Time
Discharge Date/Time: 07/15/24 17:00
Print Language: LITHUANIAN
--- NOTE | 2024-07-15 16:07 | W.PN.UPDATE ---
Update Note
Progress Note Update
Returned to bedside to discuss repeat colonoscopy vs. outpatient monitoring of BMs hgb given 2 days of prep and incomplete colonoscopy today. After careful thought and discussion, patient opted to go home and follow-up as an outpatient. He
understands that I cannot rule out a large mass or pathology proximal to the sigmoid colon. Most likely, it is a diverticular bleed, but cannot say with certainty. He will go home taking miralax 17 g once daily. His Hgb has remained stable and has
not required any blood transfusions since arrival.
He will return to hospital if he has recurrent large volume hematochezia.
Plan for d/c home today. Discussed with Dr. Martinez.
== END 2024-07-15 17:00 | disposition home or self-care (01) | DRG 378 ==
LOC: 4 EAST ACU 22:30
PROVIDERS: Emergency Medicine; Nurse Practitioner; Nurse Practitioner Family; ADMITTING PHYSICIAN Hospitalist; ATTENDING PHYSICIAN Hospitalist; CONSULT PHYSICIAN Internal Medicine; EMERGENCY PHYSICIAN Student in an Organized Health Care Education/Training Program; FAMILY PHYSICIAN Family Medicine
PROC: 5A09357 Assistance with Respiratory Ventilation, Less than 24 Consecutive Hours, Continuous Positive Airway Pressure (ICD-10-PCS; 2024-07-13)
PROC: 0DJD8ZZ Inspection of Lower Intestinal Tract, Via Natural or Artificial Opening Endoscopic (ICD-10-PCS; 2024-07-15)
PROC: 0DJ08ZZ Inspection of Upper Intestinal Tract, Via Natural or Artificial Opening Endoscopic (ICD-10-PCS; 2024-07-15)
DX: K92.2 Gastrointestinal hemorrhage, unspecified (principal); C79.51 Secondary malignant neoplasm of bone; D62 Acute posthemorrhagic anemia; K44.9 Diaphragmatic hernia without obstruction or gangrene; K31.7 Polyp of stomach and duodenum; K57.30 Diverticulosis of large intestine without perforation or abscess without bleeding; I10 Essential (primary) hypertension; E11.9 Type 2 diabetes mellitus without complications; E78.00 Pure hypercholesterolemia, unspecified; M19.90 Unspecified osteoarthritis, unspecified site; D53.9 Nutritional anemia, unspecified; N40.0 Benign prostatic hyperplasia without lower urinary tract symptoms; K22.70 Barrett's esophagus without dysplasia; G47.30 Sleep apnea, unspecified; Z90.49 Acquired absence of other specified parts of digestive tract; Z92.21 Personal history of antineoplastic chemotherapy; Z85.46 Personal history of malignant neoplasm of prostate; Z85.51 Personal history of malignant neoplasm of bladder; K21.9 Gastro-esophageal reflux disease without esophagitis; Z79.82 Long term (current) use of aspirin; Z79.899 Other long term (current) drug therapy; Z79.84 Long term (current) use of oral hypoglycemic drugs; Z87.891 Personal history of nicotine dependence; I25.10 Atherosclerotic heart disease of native coronary artery without angina pectoris; Z82.49 Family history of ischemic heart disease and other diseases of the circulatory system; Z87.442 Personal history of urinary calculi
CPT/HCPCS: 36415; 74177; 80048; 80053; 80061; 82962; 83036; 85014; 85018; 85025; 85027; 85652; 86140; 86850; 86900; 86901; 94660; 96374; 99285; G0103; Q9967

== ENCOUNTER → 2024-07-28 13:21 | Outpatient (REF) | payer MEDICARE, BC, SELFPAY ==
[2024-07-28 14:08] LABS: % Basophils 1.3 % (0-2); % Eosinophils 2.7 % (0-6); % Immature Granulocytes 0.5 % (0-0.5); % Neutrophils 70.5 % (42.2-75.2); Absolute Basophils 0.1 10^3/uL (0-0.2); Absolute Eosinophils 0.2 10^3/uL (0-0.7); Absolute Lymphocytes 1.1 10^3/uL (1.2-3.4); Absolute Monocytes 0.5 10^3/uL (0.1-0.6); Absolute Neutrophils 4.5 10^3/uL (1.4-6.5); Hematocrit 25.6 % (39.0-52.0); Hemoglobin 8.3 g/dL (13.0-18.0); Mean Corp Hgb Conc. 32.4 g/dL (33.0-37.0); Mean Corpuscular Hgb 29.6 pg (27.0-31.0); Mean Corpuscular Volume 91.4 fL (80.0-94.0); Mean Platelet Volume 10.9 fL (7.4-10.4); Nucleated Red Blood Cells % 0 % (-); Platelet Count 242 10^3/uL (130-400); Red Cell Dist. Width 14.7 % (11.5-14.5); White Blood Cell Count 6.4 10^3/uL (4.8-10.8)
[2024-07-28 14:35] LABS: ALT (SGPT) 14 U/L (0-50); AST (SGOT) 20 U/L (17-59); Albumin 4.2 g/dl (3.5-5.0); Alkaline Phosphatase 51 U/L (38-126); Blood Urea Nitrogen 21 mg/dl (9-20); Calcium 9.5 mg/dl (8.4-10.2); Carbon Dioxide 29 mmol/L (22-30); Chloride 99 mmol/L (98-107); Glucose 106 mg/dl (70-99); Sodium 138 mmol/L (135-145); Total Bilirubin 0.3 mg/dl (0.2-1.3); Total Protein 6.3 g/dl (6.3-8.2); eGFR 59.26
[2024-07-28 14:40] LABS: Potassium 4.4 mmol/L (3.5-5.1)
[2024-07-28 15:04] LABS: PSA, Total - Screen 0.26 ng/ml (0.0-4.0)
== END ==
LOC: REG 13:21
PROVIDERS: ATTENDING PHYSICIAN Family Medicine
DX: D64.9 Anemia, unspecified (principal); E11.51 Type 2 diabetes mellitus with diabetic peripheral angiopathy without gangrene; K92.2 Gastrointestinal hemorrhage, unspecified; Z12.5 Encounter for screening for malignant neoplasm of prostate
CPT/HCPCS: 36415; 80053; 85025; G0103

== ENCOUNTER → 2024-08-10 16:26 | Outpatient (REF) | payer MEDICARE, BC, SELFPAY ==
[2024-08-10 17:02] LABS: Iron 43 ug/dl (49-181)
[2024-08-10 17:05] LABS: % Basophils 0.8 % (0-2); % Eosinophils 1.7 % (0-6); % Immature Granulocytes 0.7 % (0-0.5); % Lymphocytes 17.6 % (20.5-51.1); % Monocytes 6.9 % (1.7-9.3); % Neutrophils 72.3 % (42.2-75.2); Absolute Basophils 0.1 10^3/uL (0-0.2); Absolute Eosinophils 0.1 10^3/uL (0-0.7); Absolute Lymphocytes 1.1 10^3/uL (1.2-3.4); Absolute Monocytes 0.4 10^3/uL (0.1-0.6); Absolute Neutrophils 4.3 10^3/uL (1.4-6.5); Hematocrit 27.1 % (39.0-52.0); Hemoglobin 8.7 g/dL (13.0-18.0); Mean Corp Hgb Conc. 32.1 g/dL (33.0-37.0); Mean Corpuscular Hgb 29.3 pg (27.0-31.0); Mean Corpuscular Volume 91.2 fL (80.0-94.0); Mean Platelet Volume 10.9 fL (7.4-10.4); Nucleated Red Blood Cells % 0 % (-); Platelet Count 233 10^3/uL (130-400); Red Blood Cell Count 2.97 10^6/uL (4.70-6.10); Red Cell Dist. Width 14.6 % (11.5-14.5)
[2024-08-10 17:12] LABS: Percent Saturation 10 % (20-50); Total Iron Binding Capacity 414 ug/dl (261-462)
== END ==
LOC: REG 16:26
PROVIDERS: ATTENDING PHYSICIAN Family Medicine
DX: D50.0 Iron deficiency anemia secondary to blood loss (chronic) (principal); D62 Acute posthemorrhagic anemia
CPT/HCPCS: 36415; 83540; 83550; 85025

== ENCOUNTER → 2024-08-24 12:11 | Outpatient (REF) | payer MEDICARE, BC, SELFPAY ==
[2024-08-24 13:12] LABS: % Eosinophils 2.3 % (0-6); % Immature Granulocytes 0.8 % (0-0.5); % Lymphocytes 19.7 % (20.5-51.1); % Neutrophils 67.2 % (42.2-75.2); Absolute Basophils 0.1 10^3/uL (0-0.2); Absolute Eosinophils 0.1 10^3/uL (0-0.7); Absolute Immature Granulocytes 0.1 10^3/uL (0-0.05); Absolute Lymphocytes 1.2 10^3/uL (1.2-3.4); Absolute Monocytes 0.5 10^3/uL (0.1-0.6); Absolute Neutrophils 4.1 10^3/uL (1.4-6.5); Hematocrit 28.9 % (39.0-52.0); Hemoglobin 9.3 g/dL (13.0-18.0); Mean Corp Hgb Conc. 32.2 g/dL (33.0-37.0); Mean Corpuscular Hgb 29.3 pg (27.0-31.0); Mean Corpuscular Volume 91.2 fL (80.0-94.0); Mean Platelet Volume 11.5 fL (7.4-10.4); Nucleated Red Blood Cells % 0 % (-); Platelet Count 210 10^3/uL (130-400); Red Blood Cell Count 3.17 10^6/uL (4.70-6.10); Red Cell Dist. Width 14.6 % (11.5-14.5)
== END ==
LOC: REG 12:11
PROVIDERS: ATTENDING PHYSICIAN Family Medicine
DX: D64.9 Anemia, unspecified (principal)
CPT/HCPCS: 36415; 85025

== ENCOUNTER → 2024-09-10 10:34 | Outpatient (REF) | payer MEDICARE, BC, SELFPAY ==
[2024-09-10 10:57] LABS: % Basophils 0.9 % (0-2); % Eosinophils 2.2 % (0-6); % Immature Granulocytes 0.6 % (0-0.5); % Lymphocytes 18.8 % (20.5-51.1); % Monocytes 7.1 % (1.7-9.3); % Neutrophils 70.4 % (42.2-75.2); Absolute Basophils 0.1 10^3/uL (0-0.2); Absolute Eosinophils 0.1 10^3/uL (0-0.7); Absolute Monocytes 0.4 10^3/uL (0.1-0.6); Absolute Neutrophils 3.8 10^3/uL (1.4-6.5); Hematocrit 33.1 % (39.0-52.0); Hemoglobin 10.3 g/dL (13.0-18.0); Mean Corp Hgb Conc. 31.1 g/dL (33.0-37.0); Mean Corpuscular Hgb 28.8 pg (27.0-31.0); Mean Corpuscular Volume 92.5 fL (80.0-94.0); Mean Platelet Volume 10.4 fL (7.4-10.4); Nucleated Red Blood Cells % 0 % (-); Platelet Count 180 10^3/uL (130-400); Red Blood Cell Count 3.58 10^6/uL (4.70-6.10); Red Cell Dist. Width 14.5 % (11.5-14.5); White Blood Cell Count 5.4 10^3/uL (4.8-10.8)
[2024-09-10 11:27] LABS: Iron 118 ug/dl (49-181)
[2024-09-10 11:37] LABS: Percent Saturation 28 % (20-50); Total Iron Binding Capacity 420 ug/dl (261-462)
== END ==
LOC: REG 10:34
PROVIDERS: ATTENDING PHYSICIAN Family Medicine; OTHER PHYSICIAN Internal Medicine Gastroenterology; OTHER PHYSICIAN Specialist
DX: D50.0 Iron deficiency anemia secondary to blood loss (chronic) (principal); D62 Acute posthemorrhagic anemia
CPT/HCPCS: 36415; 83540; 83550; 85025

== ENCOUNTER 2024-10-07 06:24 | Day surgery (SDC) | payer MEDICARE, BC, SELFPAY ==
[2024-10-07 07:36] LABS: Glucose - Point of Care 113 mg/dl (70-99)
== END 2024-10-07 08:51 | disposition home or self-care (01) ==
LOC: GI 06:24
PROVIDERS: ATTENDING PHYSICIAN Internal Medicine Gastroenterology
DX: K57.30 Diverticulosis of large intestine without perforation or abscess without bleeding (principal); Q43.8 Other specified congenital malformations of intestine; K64.8 Other hemorrhoids
CPT/HCPCS: 45378; 82962

== ENCOUNTER → 2024-10-08 14:12 | Outpatient (REF) | payer MEDICARE, BC, SELFPAY ==
[2024-10-08 15:38] LABS: % Basophils 0.9 % (0-2); % Immature Granulocytes 0.5 % (0-0.5); % Lymphocytes 17.3 % (20.5-51.1); % Monocytes 8.3 % (1.7-9.3); Absolute Basophils 0.1 10^3/uL (0-0.2); Absolute Eosinophils 0.1 10^3/uL (0-0.7); Absolute Lymphocytes 1.2 10^3/uL (1.2-3.4); Absolute Monocytes 0.6 10^3/uL (0.1-0.6); Absolute Neutrophils 4.7 10^3/uL (1.4-6.5); Hematocrit 33.9 % (39.0-52.0); Hemoglobin 11.1 g/dL (13.0-18.0); Mean Corp Hgb Conc. 32.7 g/dL (33.0-37.0); Mean Corpuscular Hgb 29.1 pg (27.0-31.0); Mean Corpuscular Volume 88.7 fL (80.0-94.0); Mean Platelet Volume 11.6 fL (7.4-10.4); Nucleated Red Blood Cells % 0 % (-); Platelet Count 194 10^3/uL (130-400); Red Blood Cell Count 3.82 10^6/uL (4.70-6.10); Red Cell Dist. Width 13.8 % (11.5-14.5); White Blood Cell Count 6.7 10^3/uL (4.8-10.8)
[2024-10-08 15:40] LABS: Iron 54 ug/dl (49-181)
[2024-10-08 15:52] LABS: Percent Saturation 13 % (20-50); Total Iron Binding Capacity 414 ug/dl (261-462)
== END ==
LOC: REG 14:12
PROVIDERS: ATTENDING PHYSICIAN Family Medicine; OTHER PHYSICIAN Specialist; REFERRING PHYSICIAN Internal Medicine Gastroenterology
DX: D50.9 Iron deficiency anemia, unspecified (principal)
CPT/HCPCS: 36415; 83540; 83550; 85025

== ENCOUNTER → 2024-11-30 08:12 | Outpatient (REF) | payer MEDICARE, BC, SELFPAY ==
[2024-11-30 09:13] LABS: % Basophils 0.9 % (0-2); % Immature Granulocytes 0.3 % (0-0.5); % Lymphocytes 15.6 % (20.5-51.1); % Monocytes 6.8 % (1.7-9.3); % Neutrophils 74.4 % (42.2-75.2); Absolute Basophils 0.1 10^3/uL (0-0.2); Absolute Eosinophils 0.1 10^3/uL (0-0.7); Absolute Monocytes 0.5 10^3/uL (0.1-0.6); Absolute Neutrophils 4.9 10^3/uL (1.4-6.5); Hematocrit 36.7 % (39.0-52.0); Hemoglobin 11.9 g/dL (13.0-18.0); Mean Corp Hgb Conc. 32.4 g/dL (33.0-37.0); Mean Corpuscular Hgb 29.1 pg (27.0-31.0); Mean Corpuscular Volume 89.7 fL (80.0-94.0); Nucleated Red Blood Cells % 0 % (-); Platelet Count 177 10^3/uL (130-400); Red Blood Cell Count 4.09 10^6/uL (4.70-6.10); Red Cell Dist. Width 15.2 % (11.5-14.5); White Blood Cell Count 6.6 10^3/uL (4.8-10.8)
[2024-11-30 10:17] LABS: ALT (SGPT) 23 U/L (0-50); AST (SGOT) 22 U/L (17-59); Albumin 4.6 g/dl (3.5-5.0); Alkaline Phosphatase 66 U/L (38-126); Blood Urea Nitrogen 22 mg/dl (9-20); Calcium 9.4 mg/dl (8.4-10.2); Carbon Dioxide 31 mmol/L (22-30); Chloride 103 mmol/L (98-107); Glucose 141 mg/dl (70-99); HDL Cholesterol 51 mg/dl; Iron 62 ug/dl (49-181); LDL Cholesterol, Calculated 86 mg/dl; Potassium 4.2 mmol/L (3.5-5.1); Sodium 141 mmol/L (135-145); Total Bilirubin 0.7 mg/dl (0.2-1.3); Total Cholesterol 195 mg/dl (50-199); Total Protein 6.8 g/dl (6.3-8.2); Triglyceride 293 mg/dl (10-149); Very Low Density Lipoprotein 58 mg/dl (0-30); eGFR > 60.00
[2024-11-30 11:21] LABS: Glycohemoglobin (HgbA1c) 6.6 % (4.0-5.6)
[2024-11-30 12:51] LABS: Percent Saturation 18 % (20-50); Total Iron Binding Capacity 340 ug/dl (261-462)
== END ==
LOC: REG 08:12
PROVIDERS: ATTENDING PHYSICIAN Physician Assistant; FAMILY PHYSICIAN Family Medicine
DX: E11.40 Type 2 diabetes mellitus with diabetic neuropathy, unspecified (principal); E78.2 Mixed hyperlipidemia; M54.2 Cervicalgia; D50.9 Iron deficiency anemia, unspecified
CPT/HCPCS: 36415; 80053; 80061; 83036; 83540; 83550; 85025

== ENCOUNTER → 2025-03-24 11:53 | Outpatient (REF) | payer MEDICARE, BC, SELFPAY | LOC: CLAB 11:53 | PROVIDERS: ATTENDING PHYSICIAN Specialist | DX: C67.9 Malignant neoplasm of bladder, unspecified (principal) | CPT/HCPCS: 88112 ==

== ENCOUNTER 2025-04-21 22:24 | Inpatient (IN) | payer MEDICARE, BC, SELFPAY ==
[2025-04-21] VITALS (7 sets, daily range): BP systolic 143–161; BP diastolic 74–97
--- NOTE | 2025-04-21 17:25 | ED.GENMED ---
History of Present Illness
<JEANINE Last - Last Filed: 04/21/25 22:56>
General
Chief Complaint: Urinary Symptoms
Source: patient
Exam Limitations: none
Time Seen by Provider: 04/21/25 17:16
Nursing documentation reviewed up to this point in time: agreed with
History of Present Illness
History of Present Illness:
Patient is an 84-year-old male status post cystoscopy today presents to the ER for evaluation. Patient reports he went home and could not urinate and became sweaty and vomited. Patient was seen by urology Dr. Harris prior to my exam and had a
three-way catheter inserted. On my exam pt currently feeling better . Patient is not on blood thinners.
Past History
<JEANINE Last - Last Filed: 04/21/25 22:56>
Past History
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
chronic anemia, obstructive sleep apnea)
ED Past Surgical History: Cholecystectomy, Orthopedic, Tonsilectomy and Other (Hernia repair)
Social History
Tobacco: Former smoker
Alcohol: Occasional
Personal:
Living: with family
Family History
Family History: CAD and Other (Family history of hypertriglyceridemia and coronary artery disease); Negative Diabetes, Hypertension, Asthma or Cancer
Phy Exam
<JEANINE Last - Last Filed: 04/21/25 22:56>
General Physical Exam
General Presentation: no apparent distress
General age: appears stated age
General Skin: warm and dry
General Habitus: normal
General Mental: alert
General Hydration: appears well hydrated
Cardiovascular Exam
Cardiovascular Exam: regular rate/rhythm, no murmur and normal peripheral pulses
Neurological Exam
Neurological Exam: alert
Course
<JEANINE Last - Last Filed: 04/21/25 22:56>
Orders/Labs/Results
Orders:
Orders
04/21/25 17:52
CMP [Comprehensive Metabolic Panel] Urgent
Complete Blood Count/With Diff Urgent
Urinalysis Reflex To Culture Urgent
Date Specimen was Collected: 04/21/25
Time Specimen was Collected: 17:05
Urine Microscopic Reflex Cult Urgent
Urine Culture Urgent
SHEY Source: U
Specimen Description:
Date Specimen was Collected: 04/21/25
Time Specimen was Collected: 17:05
04/21/25 18:42
0.9% Sodium Chloride 500 ml [Nss] 500 ml IV BOLUS
04/21/25 21:59
Admit/Transfer Patient As Directed
Co-Sign Provider:
Level of Care: Inpatient admission
Assign to:: Medical/Surgical
Physician / Group: Joel Matias
Diagnosis: acute urinary retention, hematuria
Reason for Hospitalization: acute urinary retention, hematuria
Expected length of stay greater than two midnights?: Yes
ELOS- Estimated Length of Stay in days: 3
I certify the patient meets the requirements for IP care: Yes
04/21/25 22:00
PRN Pain Medication Management As Directed
May give lesser potent ordered pain med per pt: Yes
preference::
Protocol:: Medication orders for pain may be administered in a
manner that supports deferring to patient preference
when the pt is:
- Requesting an ordered lesser potent pain medication.
Least to most potent pain medications are defined
as: acetaminophen < NSAID < tramadol < opioids
(morphine, oxycodone, hydromorphone).
- Requesting a lesser dose of the same medication IF
ORDERED.
- Requesting a less intrusive route of administration
if both routes are prescribed by the provider (PO <
IV).
04/21/25 22:01
Code Status As Directed
Resuscitation Status: Full Code
04/21/25 22:47
Acetaminophen [Tylenol] 650 mg PO Q4HPRN PRN
Dextrose 50%-Water [Dextrose 50% Syringe] 12.5 grams IV [id number] PRN
Glucagon [GlucaGen] 1 mg IM PRN PRN
Latanoprost [Xalatan Ophthalmic Solution] 1 drop BOTH EYES HS
04/21/25 22:47
UROLOGY CONSULT Routine
Consulting Provider: Donnie Avila
Was physician already notified: Yes
Activity As Directed
Activity Level: As Tolerated
Bedside Glucose Monitoring As Directed
Frequency: AC&HS
Additional Instructions:: Change to q6h if pt on TPN, tube feeding or not eating
Soriano Catheter [Catheter- Indwelling] As Directed
Reason for insertion: Urology Determination
Type: 3 way
Intake/ Output As Directed
Frequency: Per unit guidelines
Pneumatic Compression Sleeves As Directed
Type: Knee high
Vital Signs As Directed
Frequency: Per unit guidelines
Weight As Directed
Frequency: Once
Comment: on admission
DX Deep Vein Thrombosis Video Routine
04/22/25 Breakfast
2000 calorie (17 carb) Diabetic
At Your Request: Full Participation
Basic Metabolic Panel IN AM
Complete Blood Count/No Diff IN AM
Glycohemoglobin (HgbA1c) IN AM
04/22/25 07:30
Insulin Aspart Corrective Low [Novolog Flexpen-Low Resistance] See Protocol SC AC
04/22/25 08:00
Losartan [Cozaar] 100 mg PO DAILY
Pantoprazole [Protonix] 40 mg PO DAILY
Tamsulosin [Flomax] 0.4 mg PO BID
dorzolamide-timolol 1 drop BOTH EYES DAILY
gemfibrozil 600 mg PO BID
omega 1-jhn-glx-fish oil [Fish Oil] 1 cap PO BID
04/22/25 18:00
Amlodipine [Norvasc] 5 mg PO QPM
Atorvastatin [Lipitor] 10 mg PO QPM
Abnormal Lab Results
04/21/25
17:52
WBC 12.0 H 10^3/uL
(4.8-10.8)
RBC 3.71 L 10^6/uL
(4.70-6.10)
Hgb 11.4 L g/dL
(13.0-18.0)
Hct 35.0 L %
(39.0-52.0)
MCV 94.3 H fL
(80.0-94.0)
MCHC 32.6 L g/dL
(33.0-37.0)
MPV 11.4 H fL
(7.4-10.4)
Abs Immat Gran (auto) 0.1 H 10^3/uL
(0-0.05)
Absolute Neuts (auto) 10.5 H 10^3/uL
(1.4-6.5)
Absolute Lymphs (auto) 0.8 L 10^3/uL
(1.2-3.4)
Neutrophils % 88.1 H %
(42.2-75.2)
Lymphocytes % 6.8 L %
(20.5-51.1)
BUN 21 H mg/dl
(9-20)
Glucose 169 H mg/dl
(70-99)
Urine Ketones 1+ A
(Negative)
Ur Occult Blood Reflex 4+ A
(Negative)
Leukocyte Esterase Rfl 1+ A
(Negative)
Urine RBC >100 A /HPF
(0-2)
Urine Bacteria (Reflex) Moderate A
(Negative)
Urine Albumin (Reflex) 4+ A
(Neg - Trace)
04/21/25 17:52
04/21/25 17:52
Vital Signs
Initial and Last Documented VS:
Initial Vital Signs
Temp Pulse Resp BP Pulse Ox
97.5 F 78 20 152/92 98
04/21/25 14:47 04/21/25 14:47 04/21/25 14:47 04/21/25 14:47 04/21/25 14:47
Last Documented Vital Signs
Temp Pulse Resp BP Pulse Ox
97.6 F 83 16 144/90 98
04/21/25 17:14 04/21/25 21:30 04/21/25 21:30 04/21/25 20:00 04/21/25 21:30
<Art Smiley, DO - Last Filed: 04/21/25 22:25>
Orders/Labs/Results
Orders:
Orders
04/21/25 17:52
CMP [Comprehensive Metabolic Panel] Urgent
Complete Blood Count/With Diff Urgent
Urinalysis Reflex To Culture Urgent
Date Specimen was Collected: 04/21/25
Time Specimen was Collected: 17:05
Urine Microscopic Reflex Cult Urgent
Urine Culture Urgent
SHEY Source: U
Specimen Description:
Date Specimen was Collected: 04/21/25
Time Specimen was Collected: 17:05
04/21/25 18:42
0.9% Sodium Chloride 500 ml [Nss] 500 ml IV BOLUS
04/21/25 21:59
Admit/Transfer Patient As Directed
Co-Sign Provider:
Level of Care: Inpatient admission
Assign to:: Medical/Surgical
Physician / Group: Joel Matias
Diagnosis: acute urinary retention, hematuria
Reason for Hospitalization: acute urinary retention, hematuria
Expected length of stay greater than two midnights?: Yes
ELOS- Estimated Length of Stay in days: 3
I certify the patient meets the requirements for IP care: Yes
04/21/25 22:00
PRN Pain Medication Management As Directed
May give lesser potent ordered pain med per pt: Yes
preference::
Protocol:: Medication orders for pain may be administered in a
manner that supports deferring to patient preference
when the pt is:
- Requesting an ordered lesser potent pain medication.
Least to most potent pain medications are defined
as: acetaminophen < NSAID < tramadol < opioids
(morphine, oxycodone, hydromorphone).
- Requesting a lesser dose of the same medication IF
ORDERED.
- Requesting a less intrusive route of administration
if both routes are prescribed by the provider (PO <
IV).
04/21/25 22:01
Code Status As Directed
Resuscitation Status: Full Code
04/21/25 22:47
Acetaminophen [Tylenol] 650 mg PO Q4HPRN PRN
Dextrose 50%-Water [Dextrose 50% Syringe] 12.5 grams IV [id number] PRN
Glucagon [GlucaGen] 1 mg IM PRN PRN
Latanoprost [Xalatan Ophthalmic Solution] 1 drop BOTH EYES HS
04/21/25 22:47
UROLOGY CONSULT Routine
Consulting Provider: Donnie Avila
Was physician already notified: Yes
Activity As Directed
Activity Level: As Tolerated
Bedside Glucose Monitoring As Directed
Frequency: AC&HS
Additional Instructions:: Change to q6h if pt on TPN, tube feeding or not eating
Soriano Catheter [Catheter- Indwelling] As Directed
Reason for insertion: Urology Determination
Type: 3 way
Intake/ Output As Directed
Frequency: Per unit guidelines
Pneumatic Compression Sleeves As Directed
Type: Knee high
Vital Signs As Directed
Frequency: Per unit guidelines
Weight As Directed
Frequency: Once
Comment: on admission
DX Deep Vein Thrombosis Video Routine
04/22/25 Breakfast
2000 calorie (17 carb) Diabetic
At Your Request: Full Participation
Basic Metabolic Panel IN AM
Complete Blood Count/No Diff IN AM
Glycohemoglobin (HgbA1c) IN AM
04/22/25 07:30
Insulin Aspart Corrective Low [Novolog Flexpen-Low Resistance] See Protocol SC AC
04/22/25 08:00
Losartan [Cozaar] 100 mg PO DAILY
Pantoprazole [Protonix] 40 mg PO DAILY
Tamsulosin [Flomax] 0.4 mg PO BID
dorzolamide-timolol 1 drop BOTH EYES DAILY
gemfibrozil 600 mg PO BID
omega 0-cet-dol-fish oil [Fish Oil] 1 cap PO BID
04/22/25 18:00
Amlodipine [Norvasc] 5 mg PO QPM
Atorvastatin [Lipitor] 10 mg PO QPM
Abnormal Lab Results
04/21/25
17:52
WBC 12.0 H 10^3/uL
(4.8-10.8)
RBC 3.71 L 10^6/uL
(4.70-6.10)
Hgb 11.4 L g/dL
(13.0-18.0)
Hct 35.0 L %
(39.0-52.0)
MCV 94.3 H fL
(80.0-94.0)
MCHC 32.6 L g/dL
(33.0-37.0)
MPV 11.4 H fL
(7.4-10.4)
Abs Immat Gran (auto) 0.1 H 10^3/uL
(0-0.05)
Absolute Neuts (auto) 10.5 H 10^3/uL
(1.4-6.5)
Absolute Lymphs (auto) 0.8 L 10^3/uL
(1.2-3.4)
Neutrophils % 88.1 H %
(42.2-75.2)
Lymphocytes % 6.8 L %
(20.5-51.1)
BUN 21 H mg/dl
(9-20)
Glucose 169 H mg/dl
(70-99)
Urine Ketones 1+ A
(Negative)
Ur Occult Blood Reflex 4+ A
(Negative)
Leukocyte Esterase Rfl 1+ A
(Negative)
Urine RBC >100 A /HPF
(0-2)
Urine Bacteria (Reflex) Moderate A
(Negative)
Urine Albumin (Reflex) 4+ A
(Neg - Trace)
04/21/25 17:52
04/21/25 17:52
Vital Signs
Initial and Last Documented VS:
Initial Vital Signs
Temp Pulse Resp BP Pulse Ox
97.5 F 78 20 152/92 98
04/21/25 14:47 04/21/25 14:47 04/21/25 14:47 04/21/25 14:47 04/21/25 14:47
Last Documented Vital Signs
Temp Pulse Resp BP Pulse Ox
97.6 F 83 16 144/90 98
04/21/25 17:14 04/21/25 21:30 04/21/25 21:30 04/21/25 20:00 04/21/25 21:30
<JEANINE Last - Last Filed: 04/21/25 22:56>
MDM/Problems Addressed
Differential Diagnosis Includes:
Not limited to urinary retention, hematuria
MDM/Problems Addressed:
Patient had a cystoscopy/cauterization of tumor in the office today and had retention. Urology saw patient prior to my exam and started a three-way. Patient is currently draining pink-tinged urine under three-way irrigation. Dr. Avila
Patient patient continues to have blood-tinged urine. CBI continues.
Dr. Avila does recommend to admit to hospitalist plan to clamp CBI and do a voiding trial in the morning. Patient was mildly dehydrated here and given fluids.
Chronic conditions affecting care:
Prostate cancer
<JEANINE Last - Last Filed: 04/21/25 22:56>
*Pulse Oximetry
SaO2: 97
Oxygen Mode of Delivery: Room air
Patient hypoxic: no
*Critical Care Note
Total Time (30-74mins, 75-104mins- exclusive of procedures): Not Applicable
ED Attending Note
<JEANINE Last - Last Filed: 04/21/25 22:56>
-
Portions of this chart may have been created with voice recognition software.� Occasional wrong word or��sound alike� substitutions may have occurred due to the inherent limitations of voice recognition software.
<Art Smiley DO - Last Filed: 04/21/25 22:25>
ED Attending Note
Patient seen and examined by attending physician: Yes
ED Attending Note:
I have reviewed and agree with history treatment plan by JEANINE Jay. My exam revealed 84-year-old male with Soriano catheter in place draining punch colored urine undergoing CBI. Urology aware, admit to hospitalist.
Discharge Plan
Departure
Patient Disposition: Admit
Date of Disposition: 04/21/25
Time of Disposition: 21:05
Admit to: Med/Surg
Admit to doctor: hospitalist
Presentation/result/management discussed w/ accepting MD/DO: Hospitalist
Patient with high blood pressure during this ER visit?: Yes
Condition: Fair
Covid-19: Not Applicable
Discharge Problem:
Acute urinary retention, Hematuria
Interventions
Interventions:
*Risk Screen - Suicide Last Done: 04/21/25 16:55
*General Assessment Last Done: 04/21/25 14:50
*Neglect/Abuse Screening Last Done: 04/21/25 16:55
*ED- Fall Risk Assessment Last Done: 04/21/25 16:55
*ED COVID-19 Vaccine History Last Done: 04/21/25 16:55
*ED Influenza Vaccine History Last Done: 04/21/25 16:55
ED-Male Genitourinary Assessment Last Done: 04/21/25 16:55
[2025-04-21 18:02] LABS: Urine Character Bloody (Clear)
[2025-04-21 18:03] LABS: Hematocrit 35.0 % (39.0-52.0); Hemoglobin 11.4 g/dL (13.0-18.0); Mean Corp Hgb Conc. 32.6 g/dL (33.0-37.0); Mean Corpuscular Volume 94.3 fL (80.0-94.0); Nucleated Red Blood Cells % 0 % (-); Platelet Count 174 10^3/uL (130-400); Red Cell Dist. Width 14.4 % (11.5-14.5)
[2025-04-21 18:15] LABS: Urine Red Blood Cell >100 /HPF (0-2); Urine Squamous Cell 0-2 /LPF (Few)
[2025-04-21 18:29] LABS: ALT (SGPT) 18 U/L (0-50); AST (SGOT) 23 U/L (17-59); Albumin 4.4 g/dl (3.5-5.0); Alkaline Phosphatase 38 U/L (38-126); Blood Urea Nitrogen 21 mg/dl (9-20); Calcium 9.4 mg/dl (8.4-10.2); Carbon Dioxide 27 mmol/L (22-30); Chloride 100 mmol/L (98-107); Glucose 169 mg/dl (70-99); Potassium 4.5 mmol/L (3.5-5.1); Sodium 137 mmol/L (135-145); Total Protein 6.7 g/dl (6.3-8.2); eGFR > 60.00
[2025-04-21] MEDS: NSS 500 IV (19:10)
--- NOTE | 2025-04-21 21:15 | HPS.HSE ---
Addendum entered and electronically signed by Kaity Matias MD 04/21/25 22:13:
This is an addendum to the H&P written by Flori Murphy on 04/21/2025. �Patient seen and examined independently with [facility].
84-year-old male past medical history of medical history of prostate cancer metastases to bone, bladder cancer, GERD, Caldera's esophagus, hypertension, hypercholesteremia, diabetes, kidney stones, GI bleeding, glaucoma, diverticulosis, chronic
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 �Patient underwent cystoscopy today and cauterization of tumor today
by Dr. Harris. �
He had three-way catheter placed by Dr. Harris that is still blood-tinged
Vital signs unremarkable.
Labs show leukocytosis of 12. �Stable anemia of 11.4. UA shows hematuria.
Patient with hematuria/urinary retention after cystoscopy today. �Urology consulted recommended clamping CBI and voiding trial in the a.m.
Original Note:
Family Physician
-
Family Physician: NOT KNOW UNKNOWN - PT DOES
Chief Complaint
-
difficulty urinating
History of Present Illness
Patient is a 84-year-old male with past medical history significant for hypertension, type II diabetes, hyperlipidemia, osteoarthritis, anemia, BPH, metastatic prostate cancer to bone and bladder cancer who presented to [facility] ED for evaluation at
request of urology office. Patient had out patient cystoscopy for cauterization of tumor in urology office today. He reports after getting home and eating he became diaphoretic, vomited x1 and then had acute retention and urology office instructed
him to come to ED for evaluation. Dr. Harris saw patint in ED and placed a 3-way catheter. Denies fever, chills, cough, shortness of breath, nausea, constipation or diarrhea.
Medical History
Past Medical History
Past Medical History: Reports Other
Additional Past Medical History:
hypertension
type II diabetes
hyperlipidemia
osteoarthritis
anemia
BPH
metastatic prostate cancer to bone
bladder cancer
Hx Caldera's esophagus
sleep apnea
Past Surgical History: Reports Other
Additional Past Surgical History:
bilateral inguinal hernia repair
retinal surgery (2011)
cholecystectomy (2006)
MOHS
Social History
Tobacco: Non-smoker
Alcohol: Occasional
Drug: None
Personal:
Living: With Family
Employment: Retired
Family History
Family History: Not pertinent
Allergies / Home Medications
Allergies reflects when Allergies were last updated in [employer].
Home Medications with original date entered in [employer]
Allergy/Medication List:
Allergies
Allergy/AdvReac Type Severity Reaction Status Date / Time
medication that stimulates Allergy patient Uncoded 04/21/25 14:50
bone iván doesn't
know name
seasonal Allergy sneezing, Uncoded 04/21/25 14:50
runny eyes
Home Medications
gemfibrozil 600 mg tablet 600 mg PO BID High Cholesterol 04/17/19
pantoprazole 40 mg tablet,delayed release 40 mg PO DAILY Gastrointestinal Issue 04/17/19
simvastatin 20 mg tablet 20 mg PO QPM High Cholesterol 04/17/19
tamsulosin 0.4 mg capsule 0.4 mg PO BID Urinary Issue 04/17/19
omega 3-kka-vho-fish oil 1,200 mg (144 mg-216 mg) capsule (Fish Oil) 1 cap PO BID Supplement 06/05/22
amlodipine 5 mg tablet 5 mg PO QPM Blood Pressure 10/28/23
dorzolamide 22.3 mg-timolol 6.8 mg/mL eye drops 1 drp BOTH EYES DAILY Eye Condition 10/28/23
latanoprost 0.005 % eye drops 1 drp BOTH EYES HS Eye Condition 10/28/23
metformin 500 mg tablet,extended release 24 hr 500 mg PO BID Diabetes 10/28/23
losartan 100 mg tablet 100 mg PO DAILY Blood Pressure 01/14/24
polyethylene glycol 3350 17 gram oral powder packet (HealthyLax) 17 g PO DAILY PRN constipation 01/14/24
tramadol 50 mg tablet 50 mg PO Q4HPRN PRN severe pain 01/14/24
Review of Systems
-
History Source: Patient
Constitutional: Denies Fever or Chills
EENT: Denies Sore Throat
Respiratory: Denies Cough, Hemoptysis or Trouble Breathing
Cardiac: Reports Diaphoresis; Denies Chest Pain, Palpitations or Syncope
Abdomen/GI: Reports Nausea and Vomiting; Denies Abdominal Pain or Diarrhea
: Reports Difficulty Voiding, Bleeding and Soriano (3-way); Denies Urgency
Musculoskeletal: Denies Joint Pain
Skin: Denies Rash
Neurological: Denies Dizzy, Headache, Weakness or Numbness
Physical Exam
Vital Signs
Vital Signs
Temp Pulse Resp BP Pulse Ox
97.6 F 86 26 144/90 97
04/21/25 17:14 04/21/25 21:00 04/21/25 21:00 04/21/25 20:00 04/21/25 20:45
Physical Exam
General: Well Developed, Well Nourished, No Apparent Distress, Comfortable, Conversant and Obese
HEENT: NormoCephalic, Moist mucous membranes, Nose Appears Normal and Ears Appear Normal
Respiratory: Clear and Non Labored Respirations
Cardiac: S1/S2 and Regular Rhythm; No Murmur
GI: No Soft, Non Tender, Non Distended or Normal Bowel Sounds
Genito-urinary: Bloody Urine and Soriano (3-way)
Musculoskeletal: No Clubbing and No Cyanosis
Skin: Warm and IV/Catheter Site
Neuro: Awake and AO x 3
Psych: Calm and Intact Judgment/Insight
Laboratory Results
-
04/21/25 17:52
04/21/25 17:52
Laboratory Results
Total Bilirubin 0.5 mg/dl (0.2-1.3) 04/21/25 17:52
AST 23 U/L (17-59) 04/21/25 17:52
ALT 18 U/L (0-50) 04/21/25 17:52
Alkaline Phosphatase 38 U/L (38-126) 04/21/25 17:52
Data Reviewed
-
Lab Data: Labs Reviewed by me (WBC 12.0, hgb 11.4, hct 35.0, neut 88.1 )
Impression/Plan
-
IMPRESSION/PLAN:
#acute urinary retention
#hematuria
#bladder cancer
WBC 12.0, neut 88.1
seen today at urology for cystoscopy for cauterization of tumor, acute retention after returning home
- Admit to med/surg
- Consult Urology
- 3-way catheter
- clamp CBI and void trial in AM
#hypertension
- continue amlodipine and losartan
#type II diabetes
- AccuCheck AC & HS
- SSI
- hold metformin while acutely ill
#hyperlipidemia
- continue gemfibrozil and simvastatin
#anemia
hgb 11.4, hct 35.0
- stable
- trend H/H
#BPH
- continue tamsulosin
#Hx Caldera's esophagus
- continue pantoprazole
#sleep apnea
CPAP HS
#metastatic prostate cancer to bone
Code status:
DVT prophylaxis:
--- NOTE | 2025-04-21 22:41 | CONS.URO ---
Consultation
-
Date/Time Consultation Requested: 04/21
Date/Time Consultation Performed: 04/21
Requesting Provider: ED
Performing Provider: Margarita
Reason for Consultation: hematuria, urinary retention
Medical History
History of Present Illness
84M referred to ED w/ urinary retention, diaphoresis, and emesis after s/p flexible cystoscopy and focal fulguration of bladder tumor in the office earlier today.
Prior urologic history as follows:
- h/o m[facility] - prostate cancer w/ LAD and osseous metastases on ADT
- h/o high-grade NMIBC
Directed to [facility] ED => 3-way catheter placed w/ grossly bloody UOP.
CBI initiated => rapid lightening of hematuria noted in ED.
Past Medical History
Past Medical History: HTN, NIDDM and Other (HLD, osteoarthritis, metastatic prostate cancer, bladder cancer, Caldera's esophagitis, sleep apnea)
Past Surgical History: Cholecystectomy and Other (bilateral IHR, retinal surgery (2012), MOHS)
Social History
Tobacco: Non-smoker
Alcohol: Occasional
Drug: None
Personal:
Living: With Family
Employment: Retired
Family History
Family History: Reviewed & Not Pertinent
Allergies/Home Medications
Allergies
Allergy/AdvReac Type Severity Reaction Status Date / Time
medication that stimulates Allergy patient Uncoded 04/21/25 14:50
bone iván doesn't
know name
seasonal Allergy sneezing, Uncoded 04/21/25 14:50
runny eyes
Home Medications
�Medication �Instructions �Recorded �Confirmed �Type
gemfibrozil 600 mg tablet 600 mg PO BID High Cholesterol 04/17/19 04/21/25 History
pantoprazole 40 mg tablet,delayed 40 mg PO DAILY Gastrointestinal 04/17/19 04/21/25 History
release Issue
simvastatin 20 mg tablet 20 mg PO QPM High Cholesterol 04/17/19 04/21/25 History
tamsulosin 0.4 mg capsule 0.4 mg PO BID Urinary Issue 04/17/19 04/21/25 History
omega 3-rmr-ogu-fish oil 1,200 mg 1 cap PO BID Supplement 06/05/22 04/21/25 History
(144 mg-216 mg) capsule (Fish Oil)
amlodipine 5 mg tablet 5 mg PO QPM Blood Pressure 10/28/23 04/21/25 History
dorzolamide 22.3 mg-timolol 6.8 1 drp BOTH EYES DAILY Eye Condition 10/28/23 04/21/25 History
mg/mL eye drops
latanoprost 0.005 % eye drops 1 drp BOTH EYES HS Eye Condition 10/28/23 04/21/25 History
metformin 500 mg tablet,extended 500 mg PO BID Diabetes 10/28/23 04/21/25 History
release 24 hr
losartan 100 mg tablet 100 mg PO DAILY Blood Pressure 01/14/24 04/21/25 History
polyethylene glycol 3350 17 gram 17 g PO DAILY PRN constipation 01/14/24 04/21/25 History
oral powder packet (HealthyLax)
Review of Systems
-
History Source: Patient
A 12 point Review of Systems was completed except as noted: Yes
Constitutional: Reports No Symptoms
EENT: Reports No Symptoms
Respiratory: Reports No Symptoms
Cardiac: Reports No Symptoms
Abdomen/GI: Reports No Symptoms
: Reports Bleeding and Soriano
Musculoskeletal: Reports No Symptoms
Skin: Reports No Symptoms
Neurological: Reports No Symptoms
Endocrine: Reports No Symptoms
Hematologic/Lymphatic: Reports No Symptoms
Psych: Reports No Symptoms
Physical Exam
Vital Signs
Vital Signs
Temp Pulse Resp BP Pulse Ox
97.6 F 83 16 144/90 98
04/21/25 17:14 04/21/25 21:30 04/21/25 21:30 04/21/25 20:00 04/21/25 21:30
Lab / Testing Results
Laboratory Results
04/21/25 17:52
04/21/25 17:52
Physical Exam
General: Well Developed, Well Nourished and No Apparent Distress
HEENT: Normocephalic and Anicteric
Respiratory: Non Labored Respirations
Cardiac: S1/S2
Breast: N/A
GI: Soft, Non Tender and Non Distended
Rectal: Deferred by Provider
Genito-urinary: No Costovertebral Tend
Musculoskeletal: No Edema
Skin: Warm and Dry
Neuro: AO x 3, No Motor Deficits and Nonfocal/Grossly Intact
Hematologic/Lymphatic: No Lymphadenopathy
Psych: Calm and Intact Judgement
Assessment / Plan
-
Acute urinary retention
Hematuria - secondary to decompression hematuria and urologic instrumentation
H/o metastatic prostate cancer (LAD + osseous metastases)
H/o high grade NMIBC
H/H stable
Cr WNL
- Wean CBI as tolerated o/n
- Possible VT in AM pending improvement in hematuria
Discussed plan w/ Dr. Harris.
D/w patient.
Data Reviewed
-
Lab Data: Labs Reviewed and Discussed with Physician
Old Records: Reviewed
[2025-04-21] MEDS: XALATAN OPHTHALMIC SOLUTION 1 DROP BOTH EYES (23:38)
[2025-04-22] VITALS (9 sets, daily range): BP systolic 144–159; BP diastolic 74–95
[2025-04-22] MEDS: TYLENOL 650 MG PO (00:05)
[2025-04-22 05:57] LABS: Hematocrit 33.5 % (39.0-52.0); Hemoglobin 10.8 g/dL (13.0-18.0); Mean Corp Hgb Conc. 32.2 g/dL (33.0-37.0); Mean Corpuscular Volume 93.1 fL (80.0-94.0); Platelet Count 155 10^3/uL (130-400); Red Cell Dist. Width 14.4 % (11.5-14.5)
[2025-04-22 06:19] LABS: Blood Urea Nitrogen 17 mg/dl (9-20); Calcium 9.0 mg/dl (8.4-10.2); Carbon Dioxide 28 mmol/L (22-30); Chloride 105 mmol/L (98-107); Glucose 108 mg/dl (70-99); Potassium 3.9 mmol/L (3.5-5.1); Sodium 139 mmol/L (135-145); eGFR > 60.00
[2025-04-22 07:39] LABS: Glucose - Point of Care 118 mg/dl (70-99)
[2025-04-22] MEDS: FLOMAX 0.4 MG PO (08:39)
[2025-04-22] MEDS: PROTONIX 40 MG PO (08:39)
[2025-04-22 08:48] LABS: Glycohemoglobin (HgbA1c) 6.3 % (4.0-5.9)
--- NOTE | 2025-04-22 09:28 | W.PN.HOSP.TC ---
Today's Communication/Plan
-
Cleared by urology for discharge today with Soriano
Assessment / Plan
Assessment / Plan
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 �Patient underwent cystoscopy today and cauterization of tumor today
by Dr. Harris.
#acute urinary retention
#hematuria
#bladder cancer
Appreciate urology input, hematuria improving with CBI
Urology recommends CBI clamping, remove CBI
Cleared by urology for discharge, will follow-up on Saturday, 04/26 for void trial
#hypertension
- continue amlodipine and losartan
#type II diabetes
- Resume home regimen upon discharge
#hyperlipidemia
- continue gemfibrozil and simvastatin
# acute blood loss anemia superimposed on chronic anemia
- hemoglobin stable
#BPH
- continue tamsulosin
#Hx Caldera's esophagus
- continue pantoprazole
#sleep apnea
CPAP HS
#metastatic prostate cancer to bone
DVT prophylaxis�SCDs secondary to hematuria
Full code
Total time spent to see the patient on the floor, examine the patient, review data and lab results, discuss treatment plan with patient, nursing staff around 37 minutes.
Physical Exam
General: Obese, no acute distress
HEENT: Normocephalic, Atraumatic, EOMI, MMM
Respiratory: Clear to Auscultation bilaterally
Cardiac: Normal S1/S2, Regular Rate and Rhythm
GI: Soft, Nontender, Nondistended, Normal Bowel Sounds
Extremities: No Clubbing, Cyanosis
Soriano: mild hematuria
Neuro: Nonfocal/Grossly Intact
Anticipated Discharge: Today
Subjective/Interval History
-
Date of Service: April 22, 2025
Hematuria improved with CBI. Denies abdominal pain. No chest pain, no shortness of breath. No fever, no vomiting.
Objective Data
-
Labs:
Laboratory Results
04/22/25
05:36
WBC 8.4
Hgb 10.8 L
Hct 33.5 L
Plt Count 155
Sodium 139
Potassium 3.9
Chloride 105
Carbon Dioxide 28
BUN 17
Creatinine 0.9
Glucose 108 H
Calcium 9.0
Vital Signs:
Vital Signs
Temp Pulse Resp BP Pulse Ox
97.6 F 83 17 159/91 96
04/22/25 07:00 04/22/25 07:30 04/22/25 07:00 04/22/25 07:00 04/22/25 07:00
I&O
04/21/25 04/22/25 04/23/25
06:59 06:59 06:59
Output Total 3365 / 3365
Balance -3365 / -3365
--- NOTE | 2025-04-22 09:54 | W.PN.URO.CBU ---
Today's Communication / Plan
-
Home with Soriano catheter if cleared by Hospitalist for discharge
Assessment / Plan
-
Gross hematuria with clot urine retention following bladder biopsy and tumor fulguration 04/21/25
Little residual gross hematuria today
---
Will stop CBI at 12 noon.
If urine remains minimally bloody will send patient home today with Soriano catheter: will remove in the office early next week.
Diagnosis
-
Date of Service: April 22, 2025
-
Patient Diagnosis:
Gross hematuria/clot urine retention following outpatient cystoscopy with bladder biopsy and tumor fulguration 04/21/25
BPH
Prostate cancer
Subjective
-
Comfortable
No SP pain or CVAT
Little catheter bother
Objective
-
Vital Signs
Temp Pulse Resp BP Pulse Ox
97.6 F 83 17 159/91 96
04/22/25 07:00 04/22/25 07:30 04/22/25 07:00 04/22/25 07:00 04/22/25 07:00
Intake and Output
04/21/25 04/22/25 04/23/25
06:59 06:59 06:59
Output Total 3365 / 3365
Balance -3365 / -3365
Output:
Urine, Voided 140 / 140
True Urine Output from CBI 3225 / 3225
Laboratory Results
04/22/25 05:36
04/22/25 05:36
Review of Systems
-
Constitutional: No Symptoms
Respiratory: No Symptoms
Cardiac: No Symptoms
Abdomen/GI: No Symptoms
Neurological: No Symptoms
Physical Exam
-
General - well developed, well nourished, no acute distress
Abdomen - soft, non-tender, no CVAT
Genitalia - phimosis, Soriano catheter draining pale peach colored urine on slow drip CBI
Neuro - AOx3, no motor deficits
[2025-04-22] MEDS: COZAAR 100 MG PO (10:50)
[2025-04-22] MEDS: TRUSOPT 2% OPHTHALMIC SOLUTION 1 DROP BOTH EYES (10:51)
[2025-04-22] MEDS: TIMOPTIC 0.25% OPHTHALMIC SOLUTION 1 DROP BOTH EYES (10:51)
--- NOTE | 2025-04-22 10:59 | CM ---
CM reviewed chart and spoke with patient at ED bedside.
s/p cytoscopy 04/21 and came to ED due to inability to void
Lives in a multilevel home with 2 JACKLYN Independent ambulates with SPC for balance. Drives
DME CPAP [employer]
Son Aden lives 2 miles away from them and supportive
PCP Marvin Mcgraw
RX plan yes
Pharmacy [facility] on [place]
hx of [facility] in 2021 and hx of [facility] stay for IV abx in 2021
Pt spoke with urologist this morning and dcp is to go home with a rowell and follow up with him as outpatient on Saturday
DCP most likey home
CM will continue to follow up for any dcp needs
[2025-04-22 12:34] LABS: Glucose - Point of Care 182 mg/dl (70-99)
--- NOTE | 2025-04-22 15:30 | W.DCSUMMARY ---
Discharge Summary
Discharge Data
Date of Admission: 04/21/25
Date of Discharge: 04/22/25
-
Pending Results: No
Hospital Course
Discharge diagnosis:
Gross hematuria with urinary retention
Recurrent bladder cancer
History of metastatic prostate cancer
Acute blood loss anemia superimposed on chronic anemia
Phimosis
Type 2 diabetes
Essential hypertension
Consults: Urology
Hospital course:
84-year-old male with a past medical history of prostate cancer with metastases to bone, bladder cancer, GERD, Caldera's esophagus, hypertension, hypercholesteremia, and diabetes was admitted for gross hematuria with urinary retention after his
cystoscopy with Dr. Harris on 04/21/25. Patient was seen in conjunction with urology, and he underwent CBI. His hematuria improved. Urology recommends discharge home with Soriano, and follow-up in the office in 4 days for void trial. He is
medically stable for discharge. He also needs to follow-up with his PCP as well.
Disposition: Home self-care
Discharge planning: Required 35 minutes
Discharge Plan
-
Patient Disposition: Home (Routine Discharge)
Discharge Diagnosis/Procedures: Gross hematuria/bloody urine
Condition: Good
Diet: Diabetic, Carb Controlled
Activity: As tolerated
Driving Restrictions: As prior to admission
Referrals:
Taras Harris MD [Active, Urology] - in three to four days
UNKNOWN - PT DOES,NOT KNOW [Family Provider]
Prescriptions:
Continued
gemfibrozil 600 MG tablet
600 mg PO BID
tamsulosin 0.4 MG capsule
0.4 mg PO BID
pantoprazole 40 MG tablet,delayed release (DR/EC)
40 mg PO DAILY
simvastatin 20 MG tablet
20 mg PO QPM
omega 1-fge-rst-fish oil [Fish Oil] 1,200 (144-216) mg Capsule
1 cap PO BID
latanoprost 0.005 % Drops
1 drp BOTH EYES HS
amlodipine 5 mg Tablet
5 mg PO QPM
dorzolamide-timolol 22.3-6.8 mg/mL drops
1 drp BOTH EYES DAILY
metformin 500 mg Tablet Extended Release 24 Hr
500 mg PO BID
losartan 100 mg Tablet
100 mg PO DAILY
Discharge Orders:
Discharge Patient (As Directed); Ordered 04/22/25
Ordered By: Emre Xiao
Discharge Date and Time
Discharge Date/Time: 04/22/25 16:00
Print Language: MONGOLIAN
--- NOTE | 2025-04-22 16:16 | PTCARENOTE ---
Placed rowell with leg bag per Dr. Harris. Pt sent home with large bag for overnight. RN provided teaching on rowell care and placement to pt and pts . see mar/flowsheets for further care details.
--- NOTE | 2025-04-23 06:17 | CON.MD ---
Consultation - Medical
-
see dictated note
pt just discharged after admit for clot retention after prostate bx
also hx of bph and met prostate cancer on hormonal therapy
discharged late yesterday with rowell in place- pt said it was blood and never really drained at home
in ER [address] draining 750cc of bloody urine- on my arrival cath would not irrigate
pt has sig phimosis
[address]- irrigated with > 1 liter of sterile saline- appeared to render clot free- started cbi- light pink on moderate rate cbi
reviewed with ed and ER team
readmit
cbi
npo for now
empiric antibx
will follow
overall, given pt's co morbidities, general dispo has been to try and avoid gen anesthesia if possible
Consultation
-
Date/Time Consultation Requested: 04/23/25 at 5am
Date/Time Consultation Performed: 04/23/25 at 5m
Requesting Provider: ER
Performing Provider: Dr Gill
Reason for Consultation: clot retention
== END 2025-04-22 16:00 | disposition home or self-care (01) | DRG 920 ==
LOC: ED 22:24
PROVIDERS: Nurse Practitioner Family; Student in an Organized Health Care Education/Training Program; ADMITTING PHYSICIAN Hospitalist; ATTENDING PHYSICIAN Family Medicine; CONSULT PHYSICIAN Surgery; EMERGENCY PHYSICIAN Emergency Medicine; OTHER PHYSICIAN Specialist
PROC: 3E1K78Z Irrigation of Genitourinary Tract using Irrigating Substance, Via Natural or Artificial Opening (ICD-10-PCS; 2025-04-21)
DX: N99.820 Postprocedural hemorrhage of a genitourinary system organ or structure following a genitourinary system procedure (principal); C79.51 Secondary malignant neoplasm of bone; D62 Acute posthemorrhagic anemia; E78.00 Pure hypercholesterolemia, unspecified; I10 Essential (primary) hypertension; K21.9 Gastro-esophageal reflux disease without esophagitis; K22.70 Barrett's esophagus without dysplasia; G47.33 Obstructive sleep apnea (adult) (pediatric); H40.9 Unspecified glaucoma; N40.1 Benign prostatic hyperplasia with lower urinary tract symptoms; D72.829 Elevated white blood cell count, unspecified; R33.8 Other retention of urine; C61 Malignant neoplasm of prostate; G47.30 Sleep apnea, unspecified; E11.9 Type 2 diabetes mellitus without complications; M19.90 Unspecified osteoarthritis, unspecified site; Y84.8 Other medical procedures as the cause of abnormal reaction of the patient, or of later complication, without mention of misadventure at the time of the procedure; Y73.0 Diagnostic and monitoring gastroenterology and urology devices associated with adverse incidents; Y92.531 Health care provider office as the place of occurrence of the external cause; Z79.899 Other long term (current) drug therapy; Z85.51 Personal history of malignant neoplasm of bladder; Z87.19 Personal history of other diseases of the digestive system; Z87.442 Personal history of urinary calculi; Z90.49 Acquired absence of other specified parts of digestive tract; Z87.891 Personal history of nicotine dependence; Z82.49 Family history of ischemic heart disease and other diseases of the circulatory system
CPT/HCPCS: 80048; 80053; 81003; 81015; 82962; 83036; 85025; 85027; 87086; 88305

== ENCOUNTER 2025-04-23 07:25 | Inpatient (IN) | payer MEDICARE, BC, SELFPAY ==
[2025-04-23] VITALS (13 sets, daily range): BP systolic 135–165; BP diastolic 72–138; BMI 36.2; BMI 33.7
--- NOTE | 2025-04-23 05:28 | ED.GENMED ---
History of Present Illness
<SOFIA Catalan Jr. Last Filed: 04/23/25 05:59>
General
Chief Complaint: Catheter/Tube Problem
Source: patient
Exam Limitations: none
Time Seen by Provider: 04/23/25 04:46
Nursing documentation reviewed up to this point in time: agreed with
History of Present Illness
History of Present Illness:
84-year-old male presenting to the emergency department today with concerns of a blocked Soriano catheter. Was discharged yesterday after he had CBI in the hospital after procedure where he had blood clots and was retaining urine. Has had
progressive discomfort in the bladder and distention. Denies any fevers nausea vomiting or additional symptoms otherwise.
Past History
<Juan Antonio Selby Jr., PA-C - Last Filed: 04/23/25 05:59>
Past History
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
chronic anemia, obstructive sleep apnea)
ED Past Surgical History: Cholecystectomy, Orthopedic, Tonsilectomy and Other (Hernia repair)
Social History
Tobacco: Former smoker
Alcohol: Occasional
Personal:
Living: with family
Family History
Family History: CAD and Other (Family history of hypertriglyceridemia and coronary artery disease); Negative Diabetes, Hypertension, Asthma or Cancer
Review of Systems
<SOFIA Catalan Jr. Last Filed: 04/23/25 05:59>
Review of Systems
Allergies reviewed?: Yes
All Other Systems: ROS reviewed and negative except as documented in HPI and ROS
Phy Exam
<SOFIA Catalan Jr. Last Filed: 04/23/25 05:59>
Physical Exam
Physical Exam:
GENERAL: Alert , in no apparent distress
EYE: pupils equal and reactive
NECK: Supple, no significant adenopathy.
ENT: o/p clr, mmm.
CARDIAC: Regular rate and rhythm .
LUNGS: Clear breath sounds bilaterally, no acute respiratory distress, no wheezes/rales/rhonchi
ABDOMEN: Discomfort to the suprapubic region otherwise soft, without focal tenderness, no r/g, no cvat
NEUROLOGICAL: Alert and oriented, no focal neuro deficits
SKIN: Warm and dry, skin intact.
MUSCULOSKELETAL: No edema, well perfused.
PSYCH: Normal and appropriate interaction.
Course
<Juan Antonio Selby Jr., ALEXANDRA-C - Last Filed: 04/23/25 05:59>
Orders/Labs/Results
Orders:
Orders
04/23/25 05:00
Lidocaine 2% [Lidocaine Uro-Jet 2%] [address]
04/23/25 05:03
BMP [Basic Metabolic Panel] Urgent
CBC/With Diff [Complete Blood Count/With Diff] Urgent
Urinalysis Reflex To Culture Urgent
Date Specimen was Collected: 04/23/25
Time Specimen was Collected: 05:22
04/23/25 05:23
Soriano Placement- Treatment ONCE
Reason for insertion: Acute Retention
Vital Signs
Initial and Last Documented VS:
Initial Vital Signs
Temp Pulse Resp BP Pulse Ox
98.2 F 93 20 162/100 97
04/23/25 04:40 04/23/25 04:40 04/23/25 04:40 04/23/25 04:40 04/23/25 04:40
Last Documented Vital Signs
Temp Pulse Resp BP Pulse Ox
98.2 F 93 20 162/100 97
04/23/25 04:40 04/23/25 04:40 04/23/25 04:40 04/23/25 04:40 04/23/25 05:29
<Dirk Dean DO - Last Filed: 04/23/25 06:05>
Orders/Labs/Results
Orders:
Orders
04/23/25 05:00
Lidocaine 2% [Lidocaine Uro-Jet 2%] 1 syringe .ROUTE .[facility]
04/23/25 05:03
BMP [Basic Metabolic Panel] Urgent
CBC/With Diff [Complete Blood Count/With Diff] Urgent
Urinalysis Reflex To Culture Urgent
Date Specimen was Collected: 04/23/25
Time Specimen was Collected: 05:22
04/23/25 05:23
Soriano Placement- Treatment ONCE
Reason for insertion: Acute Retention
Vital Signs
Initial and Last Documented VS:
Initial Vital Signs
Temp Pulse Resp BP Pulse Ox
98.2 F 93 20 162/100 97
04/23/25 04:40 04/23/25 04:40 04/23/25 04:40 04/23/25 04:40 04/23/25 04:40
Last Documented Vital Signs
Temp Pulse Resp BP Pulse Ox
98.2 F 93 20 162/100 97
04/23/25 04:40 04/23/25 04:40 04/23/25 04:40 04/23/25 04:40 04/23/25 05:29
<Juan Antonio Selby Jr., PA-C - Last Filed: 04/23/25 05:59>
MDM/Problems Addressed
MDM/Problems Addressed:
84-year-old male presenting to the emergency department today with concerns of progressive suprapubic discomfort and lack of drainage from his Soriano catheter. This was placed 2 days ago after cystoscopy where he had a procedure to remove the mass.
Has had bleeding from the area. No drainage since yesterday. On arrival here patient uncomfortable with distended bladder. Over 1000 cc on bladder scan. Concerning this a three-way catheter was placed. This immediately drained. Patient then
seen by urology recommending ongoing CBI considering his bounce back today. Patient on antibiotic as well and otherwise will be admitted for CBI.
<Juan Antonio Selby Jr., PA-C - Last Filed: 04/23/25 05:59>
*Pulse Oximetry
SaO2: 97
Oxygen Mode of Delivery: Room air
Patient hypoxic: no (97)
*Critical Care Note
Total Time (30-74mins, 75-104mins- exclusive of procedures): Not Applicable
<Dirk Dean, - Last Filed: 04/23/25 06:05>
Update Note
Update Note:
84-year-old male presents with urinary retention. He had a cystoscopy on Saturday. Discharged yesterday. Tonight he noticed that his indwelling Soriano catheter was not draining. Patient was seen in conjunction with the PA. I have reviewed and
agree with his history and treatment plan. On my independent physical exam patient awake alert and oriented. He is in minimal acute distress now that he has a new Soriano catheter in place. It is draining mostly clear with some blood tinge to it.
Patient to be admitted to the hospitalist service. Patient was seen by Dr. Branch at bedside.
ED Attending Note
<Juan Antonio Selby Jr., PA-C - Last Filed: 04/23/25 05:59>
-
Portions of this chart may have been created with voice recognition software.� Occasional wrong word or��sound alike� substitutions may have occurred due to the inherent limitations of voice recognition software.
Discharge Plan
Departure
Patient Disposition: Admit
Date of Disposition: 04/23/25
Time of Disposition: 05:58
Admit to: Med/Surg
Admit to doctor: Dean
Presentation/result/management discussed w/ accepting MD/DO: Hospitalist
Patient with high blood pressure during this ER visit?: No
Condition: Good
Covid-19: Not Applicable
Discharge Problem:
Hematuria, Acute urinary retention
Prescriptions:
No Action
gemfibrozil 600 MG tablet
600 mg PO BID
tamsulosin 0.4 MG capsule
0.4 mg PO BID
pantoprazole 40 MG tablet,delayed release (DR/EC)
40 mg PO DAILY
simvastatin 20 MG tablet
20 mg PO QPM
omega 8-dyy-hcl-fish oil [Fish Oil] 1,200 (144-216) mg Capsule
1 cap PO BID
latanoprost 0.005 % Drops
1 drp BOTH EYES HS
amlodipine 5 mg Tablet
5 mg PO QPM
dorzolamide-timolol 22.3-6.8 mg/mL drops
1 drp BOTH EYES DAILY
metformin 500 mg Tablet Extended Release 24 Hr
500 mg PO BID
losartan 100 mg Tablet
100 mg PO DAILY
Referrals:
UNKNOWN - PT DOES,NOT KNOW [Family Provider]
Interventions
Interventions:
*Risk Screen - Suicide Last Done: 04/23/25 04:40
*General Assessment Last Done: 04/23/25 04:40
*Neglect/Abuse Screening Last Done: 04/23/25 04:40
*ED- Fall Risk Assessment Last Done: 04/23/25 04:40
*ED COVID-19 Vaccine History Last Done: 04/23/25 04:40
*ED Influenza Vaccine History Last Done: 04/23/25 04:40
KI-Auoirw-Gktczgxccg Assessment Last Done: 04/23/25 05:20
ED-Male Genitourinary Assessment Last Done: 04/23/25 05:20
Discharge Date and Time
Print Language: MALAYSIAN
--- NOTE | 2025-04-23 05:56 | EDRN ---
Urologist at bedside. Urologist replaced a 24g three-way indwelling catheter and started continuous bladder irrigation.
--- NOTE | 2025-04-23 06:17 | EDRN ---
Urologist irrigated rowell with around 1000 ml saline and 200 ml of CBI have infused so far; patient currently has 1250 ml urine output.
[2025-04-23 06:38] LABS: Hematocrit 35.2 % (39.0-52.0); Hemoglobin 11.5 g/dL (13.0-18.0); Mean Corp Hgb Conc. 32.7 g/dL (33.0-37.0); Mean Corpuscular Volume 94.6 fL (80.0-94.0); Nucleated Red Blood Cells % 0 % (-); Platelet Count 154 10^3/uL (130-400); Red Cell Dist. Width 14.4 % (11.5-14.5)
--- NOTE | 2025-04-23 06:56 | HPS.HSE ---
Family Physician
-
Family Physician: NOT KNOW UNKNOWN - PT DOES
Chief Complaint
-
Hematuria
History of Present Illness
Is a 84-year-old with past medical history significant for prostate cancer, bladder cancer, BPH, ixr-unyvuof-bicvpgvqi diabetes, hyperlipidemia and hypertension who presents again to the emergency department for hematuria and urinary retention.
Patient was admitted on April 21 for clot retention after prostate biopsy. He was discharged with Soriano in place and report patient said he had continued to have bloody output and never really drained at home. On return to the emergency
department 18 [place]ar[place] three-way was placed draining 750 cc of bloody urine, urology consulted to evaluate patient. They noted that the catheter would not irrigate and patient has significant phimosis. 0.4 [place]ar[place] three-way was placed and irrigated
and patient appeared to have clot free urine drainage. CBI was started.
His initial vital signs were stable with a blood pressure of 157/80 and pulse of 84 and he was satting 9 7% on room air. Temperature was 98.2.
CBC was unremarkable and hemoglobin was unchanged from prior. Electrolyte BUN/creatinine pending blood is last chemistry before discharge were all within normal range.
Medical History
Past Medical History
Past Medical History: Reports Other
Additional Past Medical History:
hypertension
type II diabetes
hyperlipidemia
osteoarthritis
anemia
BPH
metastatic prostate cancer to bone
bladder cancer
Hx Caldera's esophagus
sleep apnea
Past Surgical History: Reports Other
Additional Past Surgical History:
bilateral inguinal hernia repair
retinal surgery (2011)
cholecystectomy (2006)
MOHS
Social History
Tobacco: Non-smoker
Alcohol: Occasional
Drug: None
Personal:
Living: With Family
Employment: Retired
Family History
Family History: Not pertinent
Allergies / Home Medications
Allergies reflects when Allergies were last updated in [employer].
Home Medications with original date entered in [employer]
Allergy/Medication List:
Allergies
Allergy/AdvReac Type Severity Reaction Status Date / Time
medication that stimulates Allergy patient Uncoded 04/21/25 14:50
bone iván doesn't
know name
seasonal Allergy sneezing, Uncoded 04/21/25 14:50
runny eyes
Home Medications
gemfibrozil 600 mg tablet 600 mg PO BID High Cholesterol 04/17/19
pantoprazole 40 mg tablet,delayed release 40 mg PO DAILY Gastrointestinal Issue 04/17/19
simvastatin 20 mg tablet 20 mg PO QPM High Cholesterol 04/17/19
tamsulosin 0.4 mg capsule 0.4 mg PO BID Urinary Issue 04/17/19
omega 3-hbn-lns-fish oil 1,200 mg (144 mg-216 mg) capsule (Fish Oil) 1 cap PO BID Supplement 06/05/22
amlodipine 5 mg tablet 5 mg PO QPM Blood Pressure 10/28/23
dorzolamide 22.3 mg-timolol 6.8 mg/mL eye drops 1 drp BOTH EYES DAILY Eye Condition 10/28/23
latanoprost 0.005 % eye drops 1 drp BOTH EYES HS Eye Condition 10/28/23
metformin 500 mg tablet,extended release 24 hr 500 mg PO BID Diabetes 10/28/23
losartan 100 mg tablet 100 mg PO DAILY Blood Pressure 01/14/24
polyethylene glycol 3350 17 gram oral powder packet (HealthyLax) 17 g PO DAILY PRN constipation 01/14/24
tramadol 50 mg tablet 50 mg PO Q4HPRN PRN severe pain 01/14/24
Review of Systems
-
History Source: Patient
Constitutional: Denies Fever or Chills
EENT: Denies Sore Throat
Respiratory: Denies Cough, Hemoptysis or Trouble Breathing
Cardiac: Reports Diaphoresis; Denies Chest Pain, Palpitations or Syncope
Abdomen/GI: Reports Nausea and Vomiting; Denies Abdominal Pain or Diarrhea
: Reports Difficulty Voiding, Bleeding and Soriano (3-way); Denies Urgency
Musculoskeletal: Denies Joint Pain
Skin: Denies Rash
Neurological: Denies Dizzy, Headache, Weakness or Numbness
Physical Exam
Vital Signs
Vital Signs
Temp Pulse Resp BP Pulse Ox
98.2 F 84 17 157/78 97
04/23/25 04:40 04/23/25 06:00 04/23/25 06:00 04/23/25 06:00 04/23/25 06:00
Physical Exam
General: Well Developed, Well Nourished, No Apparent Distress, Comfortable, Conversant and Obese
HEENT: NormoCephalic, Moist mucous membranes, Nose Appears Normal and Ears Appear Normal
Respiratory: Clear and Non Labored Respirations
Cardiac: S1/S2 and Regular Rhythm; No Murmur
GI: No Soft, Non Tender, Non Distended or Normal Bowel Sounds
Genito-urinary: Bloody Urine and Soriano (3-way)
Musculoskeletal: No Clubbing and No Cyanosis
Skin: Warm and IV/Catheter Site
Neuro: Awake and AO x 3
Psych: Calm and Intact Judgment/Insight
Laboratory Results
-
04/23/25 06:22
Data Reviewed
-
Lab Data: Labs Reviewed by me
Old Records: Reviewed
Impression/Plan
-
IMPRESSION:
Clot retention status post prostate biopsy complicated by recurrent bleeding and catheter dysfunction now status post 24 [place] three-way with ongoing CBI.
PLAN:
Hematuria
- Admit to MedSurg observation
- Urology already contacted, will continue to follow
- urine cultures sent
- Empiric antibiotics w/ ceftriaxone per urology
- Continue CBI for now
- N.p.o.
- Gentle hydration, pain control
Diabetes
- Sliding scale insulin every 6 hours
- Hold metformin for now
Hypertension
- Continue losartan
DVT prophylaxis�SCDs for now
CODE STATUS�full code
[2025-04-23 07:02] LABS: Blood Urea Nitrogen 21 mg/dl (9-20); Calcium 9.2 mg/dl (8.4-10.2); Carbon Dioxide 29 mmol/L (22-30); Chloride 104 mmol/L (98-107); Estimated Creatinine Clearance 81 ml/min; Glucose 157 mg/dl (70-99); Potassium 3.8 mmol/L (3.5-5.1); Sodium 137 mmol/L (135-145); eGFR > 60.00
[2025-04-23 07:41] LABS: Urine Character Bloody (Clear)
[2025-04-23 08:26] LABS: Urine Red Blood Cell >100 /HPF (0-2)
[2025-04-23 08:27] LABS: Urine Squamous Cell 0-2 /LPF (Few); Urine White Cell 0-2 /HPF (0-5)
[2025-04-23 08:28] LABS: Urine Urothelial Cell 0-2 /LPF (FEW)
[2025-04-23 14:40] LABS: Glucose - Point of Care 140 mg/dl (70-99)
[2025-04-23] MEDS: LR 1000 IV (14:52)
[2025-04-23] MEDS: COZAAR 100 MG PO (15:02)
[2025-04-23] MEDS: PROTONIX 40 MG PO (15:02)
[2025-04-23] MEDS: FLOMAX 0.4 MG PO ×2 (15:02→19:33)
[2025-04-23] MEDS: TRUSOPT 2% OPHTHALMIC SOLUTION 1 DROP BOTH EYES (15:17)
[2025-04-23] MEDS: TIMOPTIC 0.5% OPHTHALMIC SOLUTION 1 DROP BOTH EYES (15:21)
--- NOTE | 2025-04-23 15:38 | TRANSFER ---
pt arrived from ED via stretcher accompanied by staff. CBI running with bloody urine. pt stood and pivoted with cane from stretcher to bed. no complaints of pain, VSS. pt AAOx3. POC ongoing.
[2025-04-23] MEDS: LIPITOR 10 MG PO (16:57)
[2025-04-23] MEDS: ROCEPHIN 1000 MG IV (16:58)
[2025-04-23] MEDS: FLUSH (NSS) 1 FLUSH IV ×2 (16:58→17:07)
[2025-04-23] MEDS: STERILE WATER FOR INJECTION 10 ML IV (16:58)
[2025-04-23] MEDS: NOVOLOG FLEXPEN-LOW RESISTANCE SC (16:59)
[2025-04-23] MEDS: NORVASC 5 MG PO (16:59)
[2025-04-23 17:00] LABS: Glucose - Point of Care 145 mg/dl (70-99)
[2025-04-23] MEDS: XALATAN OPHTHALMIC SOLUTION 1 DROP BOTH EYES (19:33)
[2025-04-23 21:48] LABS: Glucose - Point of Care 143 mg/dl (70-99)
[2025-04-24] MEDS: LR 1000 IV (00:45)
[2025-04-24 06:12] LABS: Hematocrit 33.5 % (39.0-52.0); Hemoglobin 11.0 g/dL (13.0-18.0); Mean Corp Hgb Conc. 32.8 g/dL (33.0-37.0); Mean Corpuscular Volume 94.1 fL (80.0-94.0); Platelet Count 145 10^3/uL (130-400); Red Cell Dist. Width 14.1 % (11.5-14.5)
[2025-04-24 06:31] LABS: Blood Urea Nitrogen 17 mg/dl (9-20); Calcium 8.9 mg/dl (8.4-10.2); Carbon Dioxide 31 mmol/L (22-30); Chloride 101 mmol/L (98-107); Estimated Creatinine Clearance 80 ml/min; Glucose 140 mg/dl (70-99); Potassium 3.9 mmol/L (3.5-5.1); Sodium 134 mmol/L (135-145); eGFR > 60.00
[2025-04-24 07:31] LABS: Glucose - Point of Care 141 mg/dl (70-99)
[2025-04-24 07:35] VITALS: BP 141/92
--- NOTE | 2025-04-24 07:46 | W.PN.HOSP.TC ---
Today's Communication/Plan
-
Per urology, patient may be discharged this afternoon with rowell if urine remains clear
Assessment / Plan
Assessment / Plan
#Gross hematuria with urinary retention
#Recurrent bladder cancer
Appreciate urology input, hematuria resolved on CBI
Urology recommends CBI clamping, stop CBI
Per urology, patient may be discharged this afternoon with rowell if urine remains clear
Follow-up with Dr. Harris on 04/26/2025
#hypertension
- continue amlodipine and losartan
#type II diabetes
- Resume home regimen upon discharge
#hyperlipidemia
- continue gemfibrozil and simvastatin
# acute blood loss anemia superimposed on chronic anemia
- hemoglobin stable
#BPH
- continue tamsulosin
#Hx Caldera's esophagus
- continue pantoprazole
#sleep apnea
CPAP HS
#metastatic prostate cancer to bone
DVT prophylaxis�SCDs secondary to hematuria
Full code
Total time spent to see the patient on the floor, examine the patient, review data and lab results, discuss treatment plan with patient, nursing staff around 36 minutes.
Physical Exam
General: Obese, no acute distress
HEENT: Normocephalic, Atraumatic, EOMI, MMM
Respiratory: Clear to Auscultation bilaterally
Cardiac: Normal S1/S2, Regular Rate and Rhythm
GI: Soft, Nontender, Nondistended, Normal Bowel Sounds
Extremities: No Clubbing, Cyanosis
Rowell: mild hematuria
Neuro: Nonfocal/Grossly Intact
Anticipated Discharge: Within 24 hours
Subjective/Interval History
-
Date of Service: April 24, 2025
Hematuria clearing on CBI. Denies abdominal pain. Denies chest pain. No fever, no vomiting.
Objective Data
-
Labs:
Laboratory Results
04/24/25
05:51
WBC 7.4
Hgb 11.0 L
Hct 33.5 L
Plt Count 145
Sodium 134 L
Potassium 3.9
Chloride 101
Carbon Dioxide 31 H
BUN 17
Creatinine 0.9
Glucose 140 H
Calcium 8.9
Vital Signs:
Vital Signs
Temp Pulse Resp BP Pulse Ox
98.5 F 87 18 145/83 94
04/23/25 23:09 04/23/25 23:09 04/23/25 23:09 04/23/25 23:09 04/23/25 23:09
I&O
04/23/25 04/24/25 04/25/25
06:59 06:59 06:59
Intake Total 1840 / 1840
Output Total 1050 / 1050 6150 / 6150
Balance -1050 / -1050 -4310 / -4310
[2025-04-24] MEDS: NOVOLOG FLEXPEN-LOW RESISTANCE SC ×2 (08:38→16:50)
[2025-04-24] MEDS: COZAAR 100 MG PO (08:39)
[2025-04-24] MEDS: PROTONIX 40 MG PO (08:39)
[2025-04-24] MEDS: TRUSOPT 2% OPHTHALMIC SOLUTION 1 DROP BOTH EYES (08:40)
[2025-04-24] MEDS: TIMOPTIC 0.5% OPHTHALMIC SOLUTION 1 DROP BOTH EYES (08:40)
[2025-04-24] MEDS: FLOMAX 0.4 MG PO (08:40)
--- NOTE | 2025-04-24 10:01 | W.PN.URO.CBU ---
Today's Communication / Plan
-
stop CBI
OOB
if hematuria remains modest, can be discharge home with Soriano
Assessment / Plan
-
diminished hematuria
Diagnosis
-
Date of Service: April 24, 2025
-
Patient Diagnosis:
1. History of metastatic prostate cancer-patient reports last PSA
undetectable on androgen therapy.
2. Recurrent bladder cancer, status post office fulguration on
Saturday.
3. Recurrent clot urinary retention.
Subjective
-
feels 'fine' and comfortable for discharge
Objective
-
Vital Signs
Temp Pulse Resp BP Pulse Ox
97.5 F 87 20 141/92 96
04/24/25 07:35 04/24/25 07:35 04/24/25 07:35 04/24/25 07:35 04/24/25 07:35
Intake and Output
04/23/25 04/24/25 04/25/25
06:59 06:59 06:59
Intake Total 1840 / 1840
Output Total 1050 / 1050 6150 / 6150
Balance -1050 / -1050 -4310 / -4310
Intake:
Oral fluids 1440 / 1440
IV fluids (Total) 400 / 400
Output:
Urine, Soriano 1050 / 1050
True Urine Output from CBI 6150 / 6150
Laboratory Results
04/24/25 05:51
04/24/25 05:51
Physical Exam
-
General - well developed, well nourished, no acute distress
Genitalia -Soriano with pale red outflow w/o clots
Care Review
Data Reviewed
Discussed with: Hospitalist and Family (3 family at bedside)
[2025-04-24 11:02] VITALS: BP 125/74
[2025-04-24] MEDS: LR IV (11:40)
[2025-04-24 12:03] LABS: Glucose - Point of Care 206 mg/dl (70-99)
[2025-04-24] MEDS: NOVOLOG FLEXPEN-LOW RESISTANCE 2 UNITS SC (12:39)
--- NOTE | 2025-04-24 14:10 | PTCARENOTE ---
CBI restarted per Urology. Plan explained to pt.
[2025-04-24 14:49] VITALS: BP 126/75
--- NOTE | 2025-04-24 15:50 | CM ---
CM following re: discharge planning.
Reviewed pt's chart, met with pt.
Pt is an 84 year old male, admitted with primary dx of Hematuria
Pt reports he lives with spouse 2SH, 11 step to enter, has 5 supportive sons. Pt reports he ambulates with a cane, has 2 walkers and does not use them. Pt reports he is known to [facility], no SNF history.
PT and OT will evaluate the pt to determine a level of care at discharge.
PCP: Marvin Mcgraw
Pharmacy: [facility].
D/C plan: hoe with anticipated [facility] services and family support.
CM will follow with discharge plan updates as hospitalization progresses
[2025-04-24 16:09] VITALS: PULSE 85
[2025-04-24 16:47] LABS: Glucose - Point of Care 117 mg/dl (70-99)
[2025-04-24] MEDS: ROCEPHIN 1000 MG IV (16:51)
[2025-04-24] MEDS: STERILE WATER FOR INJECTION 10 ML IV (16:51)
[2025-04-24] MEDS: LIPITOR 10 MG PO (16:51)
[2025-04-24] MEDS: NORVASC 5 MG PO (16:51)
[2025-04-24] MEDS: FLUSH (NSS) IV (16:52)
[2025-04-24] MEDS: XALATAN OPHTHALMIC SOLUTION 1 DROP BOTH EYES (19:16)
[2025-04-24 21:49] LABS: Glucose - Point of Care 178 mg/dl (70-99)
[2025-04-24 22:15] VITALS: PULSE 80
[2025-04-24 23:53] VITALS: BP 134/56
[2025-04-25 07:24] LABS: Glucose - Point of Care 139 mg/dl (70-99)
[2025-04-25] MEDS: NOVOLOG FLEXPEN-LOW RESISTANCE SC (07:43)
[2025-04-25 07:48] VITALS: BP 149/85
--- NOTE | 2025-04-25 08:09 | W.PN.HOSP.TC ---
Today's Communication/Plan
-
Per urology, patient may be discharged this afternoon with rowell if urine remains clear
Assessment / Plan
Assessment / Plan
#Gross hematuria with urinary retention
#Recurrent bladder cancer
Appreciate urology input, hematuria resolved on CBI
Urology recommends CBI clamping, stop CBI
Per urology, patient may be discharged this afternoon with rowell if urine remains clear
Follow-up with Dr. Harris on 04/26/2025
#hypertension
- continue amlodipine and losartan
#type II diabetes
- Resume home regimen upon discharge
#hyperlipidemia
- continue gemfibrozil and simvastatin
# acute blood loss anemia superimposed on chronic anemia
- hemoglobin stable
#BPH
- continue tamsulosin
#Hx Caldera's esophagus
- continue pantoprazole
#sleep apnea
CPAP HS
#metastatic prostate cancer to bone
DVT prophylaxis�SCDs secondary to hematuria
Full code
Total time spent to see the patient on the floor, examine the patient, review data and lab results, discuss treatment plan with patient, nursing staff around 35 minutes.
Physical Exam
General: Obese, no acute distress
HEENT: Normocephalic, Atraumatic, EOMI, MMM
Respiratory: Clear to Auscultation bilaterally
Cardiac: Normal S1/S2, Regular Rate and Rhythm
GI: Soft, Nontender, Nondistended, Normal Bowel Sounds
Extremities: No Clubbing, Cyanosis
Rowell: mild hematuria
Neuro: Nonfocal/Grossly Intact
Anticipated Discharge: Within 24 hours
Subjective/Interval History
-
Date of Service: April 25, 2025
CBI discontinued at 8 AM. Urine remains clear. Denies chest pain, denies shortness of breath. No fever, no vomiting.
Objective Data
-
Vital Signs:
Vital Signs
Temp Pulse Resp BP Pulse Ox
97.5 F 78 18 149/85 97
04/25/25 07:48 04/25/25 07:48 04/25/25 07:48 04/25/25 07:48 04/25/25 07:48
I&O
04/24/25 04/25/25 04/26/25
06:59 06:59 06:59
Intake Total 1840 / 1840 1150 / 1150
Output Total 6150 / 6150 2450 / 2450
Balance -4310 / -4310 -1300 / -1300
[2025-04-25] MEDS: TRUSOPT 2% OPHTHALMIC SOLUTION 1 DROP BOTH EYES (08:31)
[2025-04-25] MEDS: COZAAR 100 MG PO (08:31)
[2025-04-25] MEDS: PROTONIX 40 MG PO (08:31)
[2025-04-25] MEDS: TIMOPTIC 0.5% OPHTHALMIC SOLUTION 1 DROP BOTH EYES (08:32)
[2025-04-25 11:22] LABS: Glucose - Point of Care 156 mg/dl (70-99)
--- NOTE | 2025-04-25 11:36 | W.PN.URO.CBU ---
Today's Communication / Plan
-
fit for d/c urologically WITH BROOKS
Assessment / Plan
-
minimal hematuria
Diagnosis
-
Date of Service: April 25, 2025
-
Patient Diagnosis:
1. History of metastatic prostate cancer-patient reports last PSA
undetectable on androgen therapy.
2. Recurrent bladder cancer, status post office fulguration on
Saturday.
3. Recurrent clot urinary retention.
Subjective
-
'I feel alot better. I can go home now.'
Objective
-
Vital Signs
Temp Pulse Resp BP Pulse Ox
97.5 F 78 18 149/85 97
04/25/25 07:48 04/25/25 07:48 04/25/25 07:48 04/25/25 07:48 04/25/25 08:30
Intake and Output
04/24/25 04/25/25 04/26/25
06:59 06:59 06:59
Intake Total 1840 / 1840 1150 / 1150
Output Total 6150 / 6150 2450 / 2450 150 / 150
Balance -4310 / -4310 -1300 / -1300 -150 / -150
Intake:
Oral fluids 1440 / 1440 900 / 900
IV fluids (Total) 400 / 400 250 / 250
Output:
True Urine Output from CBI 6150 / 6150 2450 / 2450 150 / 150
Laboratory Results
04/24/25 05:51
04/24/25 05:51
Physical Exam
-
General - well developed, well nourished, no acute distress
Genitalia - Brooks with almost clear outflow
[2025-04-25] MEDS: NOVOLOG FLEXPEN-LOW RESISTANCE 1 UNITS SC (11:55)
[2025-04-25 13:10] VITALS: BP 153/86
--- NOTE | 2025-04-25 13:16 | W.DCSUMMARY ---
Discharge Summary
Discharge Data
Date of Admission: 04/23/25
Date of Discharge: 04/25/25
-
Pending Results: No
Hospital Course
Discharge diagnosis:
Gross hematuria with urinary retention
Recurrent bladder cancer
History of metastatic prostate cancer
Acute blood loss anemia superimposed on chronic anemia
Phimosis
Type 2 diabetes
Essential hypertension
Consults: Urology
Hospital course:
84-year-old male with a past medical history of prostate cancer with metastases to bone, bladder cancer, GERD, Caldera's esophagus, hypertension, hypercholesteremia, and diabetes was re-admitted for gross hematuria with Soriano dysfunction and urinary
retention. Patient had cystoscopy with Dr. Harris on 04/21/25. Patient was initially treated for hematuria with CBI the day of his cystoscopy and was cleared by urology for discharge with Soriano on 04/22/2025. He was readmitted on 04/23/2025 for
Soriano dysfunction, urinary retention, and recurrent hematuria. Patient was seen in conjunction with urology, and he was again treated with CBI. His hematuria improved. Urology recommends discharge home with Soriano, and follow-up in the office
tomorrow for void trial. He is medically stable for discharge. He also needs to follow-up with his PCP in 1 week as well.
Disposition: Home self-care
Discharge planning: Required 35 minutes
Discharge Plan
-
Patient Disposition: Home (Routine Discharge)
Discharge Diagnosis/Procedures: Gross hematuria with urinary retention, recurrent bladder cancer
Condition: Good
Diet: Diabetic, Carb Controlled
Activity: As tolerated
Referrals:
Taras Harris MD [Active, Urology]
Referral Note: call Saturday at 8 AM for time to come in for Soriano removal
UNKNOWN - PT DOES,NOT KNOW [Family Provider]
Prescriptions:
Continued
gemfibrozil 600 MG tablet
600 mg PO BID
tamsulosin 0.4 MG capsule
0.4 mg PO BID
pantoprazole 40 MG tablet,delayed release (DR/EC)
40 mg PO DAILY
simvastatin 20 MG tablet
20 mg PO QPM
omega [id number] oil [Fish Oil] 1,200 (144-216) mg Capsule
1 cap PO BID
latanoprost 0.005 % Drops
1 drp BOTH EYES HS
amlodipine 5 mg Tablet
5 mg PO QPM
dorzolamide-timolol 22.3-6.8 mg/mL drops
1 drp BOTH EYES DAILY
metformin 500 mg Tablet Extended Release 24 Hr
500 mg PO BID
losartan 100 mg Tablet
100 mg PO DAILY
Discharge Orders:
Discharge Patient (As Directed); Ordered 04/25/25
Ordered By: Emre Xiao
Discharge Date and Time
Print Language: FAROESE
--- NOTE | 2025-04-25 13:32 | CM ---
CM following re: discharge planning.
Reviewed pt's chart, met with pt and pt's spouse at bedside.
Discharge order noted. Both pt and his spouse are aware, expressed their agreement with discharge.
IMM reviewed, placed on chart, pt has a copy.
No after care VN needs identified.
D/C plan: home no needs. Spouse to transport.
== END 2025-04-25 14:02 | disposition home or self-care (01) | DRG 699 ==
LOC: 4 EAST ACU 07:25
PROVIDERS: Physician Assistant; ADMITTING PHYSICIAN Internal Medicine; ATTENDING PHYSICIAN Family Medicine; CONSULT PHYSICIAN Specialist; EMERGENCY PHYSICIAN Student in an Organized Health Care Education/Training Program
PROC: 5A09357 Assistance with Respiratory Ventilation, Less than 24 Consecutive Hours, Continuous Positive Airway Pressure (ICD-10-PCS; 2025-04-24)
DX: T83.091A Other mechanical complication of indwelling urethral catheter, initial encounter (principal); C79.51 Secondary malignant neoplasm of bone; D62 Acute posthemorrhagic anemia; N40.1 Benign prostatic hyperplasia with lower urinary tract symptoms; R31.0 Gross hematuria; R33.9 Retention of urine, unspecified; Y84.6 Urinary catheterization as the cause of abnormal reaction of the patient, or of later complication, without mention of misadventure at the time of the procedure; Y73.2 Prosthetic and other implants, materials and accessory gastroenterology and urology devices associated with adverse incidents; E11.9 Type 2 diabetes mellitus without complications; I10 Essential (primary) hypertension; E66.9 Obesity, unspecified; Z68.33 Body mass index [BMI] 33.0-33.9, adult; G47.30 Sleep apnea, unspecified; C67.9 Malignant neoplasm of bladder, unspecified; N47.1 Phimosis; K22.70 Barrett's esophagus without dysplasia; C61 Malignant neoplasm of prostate; M19.90 Unspecified osteoarthritis, unspecified site; Z87.891 Personal history of nicotine dependence
CPT/HCPCS: 51702; 51798; 80048; 81003; 81015; 82962; 85025; 85027; 87077; 87086; 87186; 94660; 99285

== ENCOUNTER → 2025-06-18 07:56 | Outpatient (REF) | payer MEDICARE, BC, SELFPAY ==
[2025-06-18 08:48] LABS: Hematocrit 34.8 % (39.0-52.0); Hemoglobin 11.6 g/dL (13.0-18.0); Mean Corp Hgb Conc. 33.3 g/dL (33.0-37.0); Mean Corpuscular Volume 91.8 fL (80.0-94.0); Nucleated Red Blood Cells % 0 % (-); Platelet Count 212 10^3/uL (130-400); Red Cell Dist. Width 14.6 % (11.5-14.5)
[2025-06-18 09:31] LABS: Glycohemoglobin (HgbA1c) 6.3 % (4.0-5.9)
[2025-06-18 09:33] LABS: ALT (SGPT) 19 U/L (0-50); AST (SGOT) 23 U/L (17-59); Albumin 4.5 g/dl (3.5-5.0); Alkaline Phosphatase 51 U/L (38-126); Blood Urea Nitrogen 30 mg/dl (9-20); Calcium 10.0 mg/dl (8.4-10.2); Carbon Dioxide 26 mmol/L (22-30); Chloride 103 mmol/L (98-107); Glucose 117 mg/dl (70-99); HDL Cholesterol 56 mg/dl; Iron 69 ug/dl (49-181); LDL Cholesterol, Calculated 103 mg/dl; Potassium 4.3 mmol/L (3.5-5.1); Sodium 140 mmol/L (135-145); Total Protein 7.0 g/dl (6.3-8.2); Very Low Density Lipoprotein 45 mg/dl (0-30); eGFR > 60.00
[2025-06-18 09:42] LABS: Total Iron Binding Capacity 388 ug/dl (261-462)
[2025-06-18 09:53] LABS: PSA, Total - Diagnostic 0.61 ng/ml (0.0-4.0)
== END ==
LOC: REG 07:56
PROVIDERS: ATTENDING PHYSICIAN Family Medicine; FAMILY PHYSICIAN Specialist
DX: C61 Malignant neoplasm of prostate (principal); D50.9 Iron deficiency anemia, unspecified; E11.40 Type 2 diabetes mellitus with diabetic neuropathy, unspecified; E78.2 Mixed hyperlipidemia
CPT/HCPCS: 36415; 80053; 80061; 83036; 83540; 83550; 84153; 85025